=== PATIENT | male | born 1945 | race Caucasian/White ===

== ENCOUNTER 2020-11-06 10:21 | Outpatient (REF) | payer SELFPAY ==
[2020-11-06 11:28] LABS: Cholesterol 171 mg/dL
== END 2020-11-06 10:22 | disposition home or self-care (01) ==
LOC: HO.LNC 10:21
PROVIDERS: Visit Provider Pathology Anatomic Pathology & Clinical Pathology
DX: Z79.899 Other long term (current) drug therapy (principal)
CPT/HCPCS: 36415; 82465

== ENCOUNTER 2020-12-22 10:22 | Outpatient (REF) | payer MEDICARE, SELFPAY ==
[2020-12-22 11:08] LABS: MANUAL DIFF FLAG NO
[2020-12-22 11:17] LABS: Basophils Percent Auto 0.5 % (0-2); Eosinophils Absolute Auto 0.1 X10*3/uL (0.0-0.4); Eosinophils Percent Auto 1.8 % (0-4); Hematocrit 42.7 % (42-52); Hemoglobin 14.1 g/dl (14.0-18.0); Imm Gran Abs Auto 0.01 X10*3/uL (0.00-0.03); Imm Gran Pct Auto 0.2 % (0.0-0.4); Lymphocytes Absolute Auto 1.2 X10*3/uL (1.2-4.9); Lymphocytes Percent Auto 20.8 % (20-40); Mean Corpuscular Hemoglobin 31.8 pg (27.0-33.0); Mean Corpuscular Volume 96.2 fL (80-98); Mean Platelet Volume 9.2 fL (9.4-12.4); Monocytes Absolute Auto 0.6 X10*3/uL (0.1-1.2); Monocytes Percent Auto 10.8 % (2-11); Neutrophils Absolute Auto 3.7 X10*3/uL (2.0-8.3); Neutrophils Percent Auto 65.9 % (45-73); Platelet Count 172 X10*3/uL (160-400); Red Blood Count 4.44 X10*6/uL (4.60-5.80); Red Cell Distribution Width 12.2 % (11.0-16.0); White Blood Count 5.6 X10*3/uL (4.8-10.8)
[2020-12-22 11:43] LABS: Alanine Aminotransferase 22 U/L (0-40); Albumin Level 4.2 g/dL (3.5-5.0); Alkaline Phosphatase 107 U/L (39-117); Anion Gap 12 (12-20); Aspartate Amino Transferase 25 U/L (5-37); Bilirubin Total 0.8 mg/dL (0.0-1.0); Blood Urea Nitrogen 18 mg/dL (9-16); Calcium 8.4 mg/dL (8.4-10.2); Carbon Dioxide 28 mmol/L (22-29); Chloride 103 mmol/L (96-108); Cholesterol 165 mg/dL; Estimated Glomerular Filt Rate > 60; Glucose Fasting 107 mg/dL (60-99); HDL Cholesterol 39 mg/dL; LDL Cholesterol Calculated 99 mg/dl; Potassium 4.4 mmol/L (3.3-5.1); Sodium 139 mmol/L (135-145); Total Protein 7.1 g/dL (6.5-8.0); Triglycerides 135 mg/dL
[2020-12-22 11:56] LABS: Prostate Specific Antigen 1.04 ng/mL (<0.05-4.0); Vitamin D 25-OH Total 19.6 ng/mL (>30)
== END 2020-12-22 10:23 | disposition home or self-care (01) ==
LOC: HO.LAB 10:22
PROVIDERS: PCP Internal Medicine Medical Oncology; Visit Provider Internal Medicine Medical Oncology
DX: M19.90 Unspecified osteoarthritis, unspecified site (principal); E78.5 Hyperlipidemia, unspecified; N40.0 Benign prostatic hyperplasia without lower urinary tract symptoms; Z12.5 Encounter for screening for malignant neoplasm of prostate
CPT/HCPCS: 36415; 80053; 80061; 82306; 84153; 85025

== ENCOUNTER 2021-04-10 06:17 | Outpatient (REF) | payer MEDICARE, SELFPAY ==
[2021-04-10 07:53] LABS: MANUAL DIFF FLAG NO
[2021-04-10 08:08] LABS: Basophils Percent Auto 0.5 % (0-2); Eosinophils Absolute Auto 0.2 X10*3/uL (0.0-0.4); Eosinophils Percent Auto 2.8 % (0-4); Hematocrit 40.7 % (42-52); Hemoglobin 13.9 g/dl (14.0-18.0); Imm Gran Abs Auto 0.02 X10*3/uL (0.00-0.03); Imm Gran Pct Auto 0.3 % (0.0-0.4); Lymphocytes Absolute Auto 1.6 X10*3/uL (1.2-4.9); Lymphocytes Percent Auto 28.4 % (20-40); Mean Corpuscular HGB Conc 34.2 g/dl (31.0-36.0); Mean Corpuscular Hemoglobin 32.3 pg (27.0-33.0); Mean Corpuscular Volume 94.4 fL (80-98); Mean Platelet Volume 9.1 fL (9.4-12.4); Monocytes Absolute Auto 0.6 X10*3/uL (0.1-1.2); Monocytes Percent Auto 9.7 % (2-11); Neutrophils Absolute Auto 3.4 X10*3/uL (2.0-8.3); Neutrophils Percent Auto 58.3 % (45-73); Platelet Count 169 X10*3/uL (160-400); Red Blood Count 4.31 X10*6/uL (4.60-5.80); Red Cell Distribution Width 12.1 % (11.0-16.0); White Blood Count 5.8 X10*3/uL (4.8-10.8)
[2021-04-10 08:37] LABS: Alanine Aminotransferase 15 U/L (0-40); Alkaline Phosphatase 114 U/L (39-117); Anion Gap 11 (12-20); Aspartate Amino Transferase 20 U/L (5-37); Bilirubin Total 0.5 mg/dL (0.0-1.0); Blood Urea Nitrogen 17 mg/dL (9-16); Calcium 8.8 mg/dL (8.4-10.2); Carbon Dioxide 27 mmol/L (22-29); Chloride 106 mmol/L (96-108); Cholesterol 149 mg/dL; Estimated Glomerular Filt Rate > 60; Glucose Fasting 114 mg/dL (60-99); HDL Cholesterol 36 mg/dL; LDL Cholesterol Calculated 89 mg/dl; Potassium 3.7 mmol/L (3.3-5.1); Sodium 140 mmol/L (135-145); Total Protein 6.7 g/dL (6.5-8.0); Triglycerides 122 mg/dL
== END 2021-04-10 06:18 | disposition home or self-care (01) ==
LOC: HO.LAB 06:17
PROVIDERS: PCP Internal Medicine Medical Oncology; Visit Provider Internal Medicine Medical Oncology
DX: M19.90 Unspecified osteoarthritis, unspecified site (principal); N40.0 Benign prostatic hyperplasia without lower urinary tract symptoms; E78.5 Hyperlipidemia, unspecified
CPT/HCPCS: 36415; 80053; 80061; 85025

== ENCOUNTER 2021-06-06 08:19 | Outpatient (REF) | payer MEDICARE, SELFPAY ==
[2021-06-06 09:06] LABS: MANUAL DIFF FLAG NO
[2021-06-06 09:24] LABS: Basophils Percent Auto 0.7 % (0-2); Eosinophils Absolute Auto 0.2 X10*3/uL (0.0-0.4); Eosinophils Percent Auto 3.5 % (0-4); Hematocrit 39.3 % (42-52); Hemoglobin 13.1 g/dl (14.0-18.0); Imm Gran Abs Auto 0.01 X10*3/uL (0.00-0.03); Imm Gran Pct Auto 0.2 % (0.0-0.4); Lymphocytes Absolute Auto 1.3 X10*3/uL (1.2-4.9); Mean Corpuscular HGB Conc 33.3 g/dl (31.0-36.0); Mean Corpuscular Hemoglobin 31.4 pg (27.0-33.0); Mean Corpuscular Volume 94.2 fL (80-98); Mean Platelet Volume 9.1 fL (9.4-12.4); Monocytes Absolute Auto 0.5 X10*3/uL (0.1-1.2); Monocytes Percent Auto 10.4 % (2-11); Neutrophils Absolute Auto 2.4 X10*3/uL (2.0-8.3); Neutrophils Percent Auto 56.2 % (45-73); Platelet Count 192 X10*3/uL (160-400); Red Blood Count 4.17 X10*6/uL (4.60-5.80); Red Cell Distribution Width 12.3 % (11.0-16.0); White Blood Count 4.3 X10*3/uL (4.8-10.8)
[2021-06-06 09:43] LABS: Cholesterol 247 mg/dL; HDL Cholesterol 38 mg/dL; LDL Cholesterol Calculated 181 mg/dl; Triglycerides 144 mg/dL
[2021-06-06 10:04] LABS: Ferritin 43 ng/mL (20-250)
== END 2021-06-06 08:20 | disposition home or self-care (01) ==
LOC: HO.LAB 08:19
PROVIDERS: PCP Internal Medicine Medical Oncology; Visit Provider Internal Medicine Medical Oncology
DX: E78.5 Hyperlipidemia, unspecified (principal); D64.9 Anemia, unspecified
CPT/HCPCS: 36415; 80061; 82728; 85025

== ENCOUNTER 2021-09-09 07:57 | Outpatient (REF) | payer MEDICARE, SELFPAY ==
[2021-09-09 08:20] LABS: MANUAL DIFF FLAG NO
[2021-09-09 08:34] LABS: Basophils Percent Auto 0.7 % (0-2); Eosinophils Absolute Auto 0.1 X10*3/uL (0.0-0.4); Eosinophils Percent Auto 2.9 % (0-4); Hematocrit 41.1 % (42.0-52.0); Hemoglobin 13.5 g/dl (14.0-18.0); Imm Gran Abs Auto 0.01 X10*3/uL (0.00-0.03); Imm Gran Pct Auto 0.2 % (0.0-0.4); Lymphocytes Absolute Auto 1.2 X10*3/uL (1.2-4.9); Lymphocytes Percent Auto 27.9 % (20-40); Mean Corpuscular HGB Conc 32.8 g/dl (31.0-36.0); Mean Corpuscular Hemoglobin 31.8 pg (27.0-33.0); Mean Corpuscular Volume 96.7 fL (80.0-98.0); Mean Platelet Volume 8.9 fL (9.4-12.4); Monocytes Absolute Auto 0.5 X10*3/uL (0.1-1.2); Neutrophils Absolute Auto 2.3 x10*3/uL (2.0-8.3); Neutrophils Percent Auto 55.3 % (45-73); Platelet Count 187 X10*3/uL (160-400); Red Blood Count 4.25 X10*6/uL (4.60-5.80); Red Cell Distribution Width 12.9 % (11.0-16.0); White Blood Count 4.2 X10*3/uL (4.8-10.8)
[2021-09-09 09:28] LABS: Alanine Aminotransferase 25 U/L (0-40); Alkaline Phosphatase 101 U/L (39-117); Anion Gap 12 (12-20); Aspartate Amino Transferase 25 U/L (5-37); Bilirubin Total 0.6 mg/dL (0.0-1.0); Blood Urea Nitrogen 14 mg/dL (9-16); Calcium 8.8 mg/dL (8.4-10.2); Carbon Dioxide 25 mmol/L (22-29); Chloride 107 mmol/L (96-108); Cholesterol 132 mg/dL; Estimated Glomerular Filt Rate > 60; Glucose Fasting 120 mg/dL (60-99); HDL Cholesterol 40 mg/dL; LDL Cholesterol Calculated 76 mg/dl; Potassium 4.3 mmol/L (3.3-5.1); Sodium 140 mmol/L (135-145); Total Protein 6.9 g/dL (6.5-8.0); Triglycerides 81 mg/dL
== END 2021-09-09 07:58 | disposition home or self-care (01) ==
LOC: HO.LAB 07:57
PROVIDERS: Visit Provider Internal Medicine Medical Oncology
DX: N40.0 Benign prostatic hyperplasia without lower urinary tract symptoms (principal); E78.5 Hyperlipidemia, unspecified
CPT/HCPCS: 36415; 80053; 80061; 85025

== ENCOUNTER 2021-11-27 08:22 | Outpatient (REF) | payer MEDICARE, SELFPAY ==
[2021-11-27 11:28] LABS: MANUAL DIFF FLAG NO
[2021-11-27 11:32] LABS: Basophils Percent Auto 0.5 % (0-2); Eosinophils Absolute Auto 0.1 X10*3/uL (0.0-0.4); Eosinophils Percent Auto 2.5 % (0-4); Hematocrit 42.8 % (42.0-52.0); Imm Gran Abs Auto 0.01 X10*3/uL (0.00-0.03); Imm Gran Pct Auto 0.2 % (0.0-0.4); Lymphocytes Absolute Auto 1.3 X10*3/uL (1.2-4.9); Lymphocytes Percent Auto 23.8 % (20-40); Mean Corpuscular HGB Conc 32.7 g/dl (31.0-36.0); Mean Corpuscular Hemoglobin 31.3 pg (27.0-33.0); Mean Corpuscular Volume 95.7 fL (80.0-98.0); Mean Platelet Volume 9.3 fL (9.4-12.4); Monocytes Absolute Auto 0.5 X10*3/uL (0.1-1.2); Monocytes Percent Auto 9.6 % (2-11); Neutrophils Absolute Auto 3.5 x10*3/uL (2.0-8.3); Neutrophils Percent Auto 63.4 % (45-73); Platelet Count 207 X10*3/uL (160-400); Red Blood Count 4.47 X10*6/uL (4.60-5.80); Red Cell Distribution Width 12.1 % (11.0-16.0); White Blood Count 5.5 X10*3/uL (4.8-10.8)
[2021-11-27 12:04] LABS: Alanine Aminotransferase 18 U/L (0-40); Albumin Level 3.9 g/dL (3.5-5.0); Alkaline Phosphatase 98 U/L (39-117); Anion Gap 11 (12-20); Aspartate Amino Transferase 19 U/L (5-37); Bilirubin Total 0.4 mg/dL (0.0-1.0); Blood Urea Nitrogen 16 mg/dL (9-16); Calcium 9.1 mg/dL (8.4-10.2); Carbon Dioxide 29 mmol/L (22-29); Chloride 105 mmol/L (96-108); Cholesterol 155 mg/dL; Estimated Glomerular Filt Rate > 60; Glucose Fasting 115 mg/dL (60-99); HDL Cholesterol 34 mg/dL; LDL Cholesterol Calculated 93 mg/dl; Potassium 4.2 mmol/L (3.3-5.1); Sodium 141 mmol/L (135-145); Total Protein 7.1 g/dL (6.5-8.0); Triglycerides 142 mg/dL
== END 2021-11-27 08:23 | disposition home or self-care (01) ==
LOC: HO.HMGCLDS 08:22
PROVIDERS: PCP Internal Medicine Medical Oncology; Visit Provider Internal Medicine Medical Oncology
DX: N40.0 Benign prostatic hyperplasia without lower urinary tract symptoms (principal); E78.5 Hyperlipidemia, unspecified; I10 Essential (primary) hypertension; R35.1 Nocturia; Z12.5 Encounter for screening for malignant neoplasm of prostate
CPT/HCPCS: 36415; 80053; 80061; 84153; 85025

== ENCOUNTER 2022-07-09 09:39 | Outpatient (REF) | payer MEDICARE, SELFPAY ==
[2022-07-09 09:55] LABS: MANUAL DIFF FLAG NO
[2022-07-09 10:27] LABS: Basophils Percent Auto 0.8 % (0-2); Eosinophils Absolute Auto 0.1 X10*3/uL (0.0-0.4); Eosinophils Percent Auto 2.3 % (0-4); Hematocrit 39.5 % (42.0-52.0); Hemoglobin 13.4 g/dl (14.0-18.0); Imm Gran Abs Auto 0.02 X10*3/uL (0.00-0.03); Imm Gran Pct Auto 0.4 % (0.0-0.4); Lymphocytes Absolute Auto 1.5 X10*3/uL (1.2-4.9); Lymphocytes Percent Auto 30.6 % (20-40); Mean Corpuscular HGB Conc 33.9 g/dl (31.0-36.0); Mean Corpuscular Hemoglobin 32.1 pg (27.0-33.0); Mean Corpuscular Volume 94.5 fL (80.0-98.0); Mean Platelet Volume 8.8 fL (9.4-12.4); Monocytes Absolute Auto 0.5 X10*3/uL (0.1-1.2); Monocytes Percent Auto 9.6 % (2-11); Neutrophils Absolute Auto 2.7 x10*3/uL (2.0-8.3); Neutrophils Percent Auto 56.3 % (45-73); Platelet Count 179 X10*3/uL (160-400); Red Blood Count 4.18 X10*6/uL (4.60-5.80); Red Cell Distribution Width 12.6 % (11.0-16.0); White Blood Count 4.8 X10*3/uL (4.8-10.8)
[2022-07-09 10:51] LABS: Alanine Aminotransferase 17 U/L (0-40); Alkaline Phosphatase 101 U/L (39-117); Anion Gap 15 (12-20); Aspartate Amino Transferase 21 U/L (5-37); Bilirubin Total 0.6 mg/dL (0.0-1.0); Blood Urea Nitrogen 18 mg/dL (9-16); Calcium 8.9 mg/dL (8.4-10.2); Carbon Dioxide 25 mmol/L (22-29); Chloride 104 mmol/L (96-108); Cholesterol 164 mg/dL; Estimated Glomerular Filt Rate > 60; Glucose Fasting 115 mg/dL (60-99); HDL Cholesterol 35 mg/dL; LDL Cholesterol Calculated 104 mg/dl; Potassium 4.1 mmol/L (3.3-5.1); Sodium 140 mmol/L (135-145); Triglycerides 129 mg/dL
== END 2022-07-09 09:40 | disposition home or self-care (01) ==
LOC: HO.LAB 09:39
PROVIDERS: PCP Internal Medicine Medical Oncology; Visit Provider Internal Medicine Medical Oncology
DX: Z12.5 Encounter for screening for malignant neoplasm of prostate (principal); N40.0 Benign prostatic hyperplasia without lower urinary tract symptoms; E78.5 Hyperlipidemia, unspecified; C18.9 Malignant neoplasm of colon, unspecified
CPT/HCPCS: 36415; 80053; 80061; 84153; 85025

== ENCOUNTER 2023-03-11 11:17 | Outpatient (REF) | payer MEDICARE, SELFPAY ==
[2023-03-11 11:38] LABS: MANUAL DIFF FLAG NO
[2023-03-11 12:11] LABS: Basophils Percent Auto 0.5 % (0-2); Eosinophils Absolute Auto 0.1 X10*3/uL (0.0-0.4); Eosinophils Percent Auto 2.4 % (0-4); Hematocrit 41.7 % (42.0-52.0); Hemoglobin 13.8 g/dl (14.0-18.0); Imm Gran Abs Auto 0.02 X10*3/uL (0.00-0.03); Imm Gran Pct Auto 0.4 % (0.0-0.4); Lymphocytes Absolute Auto 1.5 X10*3/uL (1.2-4.9); Lymphocytes Percent Auto 26.3 % (20-40); Mean Corpuscular HGB Conc 33.1 g/dl (31.0-36.0); Mean Corpuscular Hemoglobin 31.4 pg (27.0-33.0); Mean Corpuscular Volume 94.8 fL (80.0-98.0); Monocytes Absolute Auto 0.6 X10*3/uL (0.1-1.2); Monocytes Percent Auto 11.1 % (2-11); Neutrophils Absolute Auto 3.3 x10*3/uL (2.0-8.3); Neutrophils Percent Auto 59.3 % (45-73); Platelet Count 180 X10*3/uL (160-400); Red Cell Distribution Width 12.5 % (11.0-16.0); White Blood Count 5.5 X10*3/uL (4.8-10.8)
[2023-03-11 12:58] LABS: Alanine Aminotransferase 17 U/L (0-40); Albumin Level 4.1 g/dL (3.5-5.0); Alkaline Phosphatase 94 U/L (39-117); Anion Gap 11 (12-20); Aspartate Amino Transferase 22 U/L (5-37); Bilirubin Total 0.6 mg/dL (0.0-1.0); Blood Urea Nitrogen 24 mg/dL (9-16); Calcium 9.1 mg/dL (8.4-10.2); Carbon Dioxide 28 mmol/L (22-29); Chloride 105 mmol/L (96-108); Cholesterol 183 mg/dL; Estimated Glomerular Filt Rate > 60; Glucose Random 92 mg/dL (60-115); HDL Cholesterol 40 mg/dL; LDL Cholesterol Calculated 120 mg/dl; Potassium 4.5 mmol/L (3.3-5.1); Prostate Specific Antigen 0.91 ng/mL (<0.05-4.0); Sodium 139 mmol/L (135-145); Total Protein 7.1 g/dL (6.5-8.0); Triglycerides 119 mg/dL
== END 2023-03-11 11:18 | disposition home or self-care (01) ==
LOC: HO.LAB 11:17
PROVIDERS: PCP Internal Medicine Medical Oncology; Visit Provider Internal Medicine Medical Oncology
DX: Z12.5 Encounter for screening for malignant neoplasm of prostate (principal); N40.0 Benign prostatic hyperplasia without lower urinary tract symptoms; E78.5 Hyperlipidemia, unspecified; I10 Essential (primary) hypertension
CPT/HCPCS: 36415; 80053; 80061; 84153; 85025

== ENCOUNTER 2023-03-11 14:17 | Outpatient (REF) | payer MEDICARE, SELFPAY | END 2023-03-11 14:18 | disposition home or self-care (01) | LOC: HO.SH 14:17 | PROVIDERS: Visit Provider Internal Medicine Medical Oncology | DX: Z01.118 Encounter for examination of ears and hearing with other abnormal findings (principal); H90.3 Sensorineural hearing loss, bilateral | CPT/HCPCS: 92557 ==

== ENCOUNTER 2023-04-22 13:51 | Outpatient (REF) | payer MEDICARE, SELFPAY ==
--- NOTE | ~2023-04-22 | US_ITS ---
EXAMINATION: NONINVASIVE ASSESSMENT OF THE ARTERIES OF THE LEFT LOWER EXTREMITY Jamie Dangelo MD CLINICAL INFORMATION: Peripheral vascular disease TECHNIQUE: Right lower extremity duplex ultrasound was performed with velocity measurements and waveform analysis in the common femoral arteries, profunda femoris arteries, proximal mid and distal superficial femoral arteries, popliteal arteries and tibial vessels. This study was performed only at rest. COMPARISON: None FINDINGS: Velocities in cm/sec and phasicity as well as the presence of plaque are reported below. LEFT LEG: Mild plaque is present with total occlusion of the SFA with reconstitution of a diseased popliteal artery. Triphasic flow noted in the common femoral artery and profunda femoris artery with monophasic flow noted in the SFA as well as the distally reconstituted popliteal and runoff vessels. Common Femoral: 87 Profunda Femoris: 96 Proximal SFA: 29 Mid SFA: Occluded Distal SFA: Occluded Popliteal: 211 Posterior tibial artery: 44 Peroneal: 26 US/US arterial duplex LE LT IMPRESSION: There is evidence of peripheral vascular disease with total occlusion of the SFA with reconstitution of the popliteal and runoff vessels.
== END 2023-04-22 13:52 | disposition home or self-care (01) ==
LOC: HO.US 13:51
PROVIDERS: PCP Internal Medicine Medical Oncology; Referring Provider Surgery Vascular Surgery; Visit Provider Internal Medicine Medical Oncology
DX: I73.9 Peripheral vascular disease, unspecified (principal)
CPT/HCPCS: 93926

== ENCOUNTER 2023-04-22 14:59 | Emergency (ER) | payer MEDICARE, SELFPAY ==
--- NOTE | 2023-04-22 15:06 | ED_ITS ---
HPI - General Adult General Chief complaint: General Medical Stated complaint: acute arterial aclusion l leg Time Seen by Provider: 04/22/23 15:14 Source: patient Mode of arrival: ambulatory Limitations: no limitations History of Present Illness HPI narrative: This is an 78-year-old male with a history of high cholesterol on a statin who presents to the ER with complaints of left-sided calf pain for the last 1 year which he experiences when he walks around and performs exercise. There is no associated redness, swelling, warmth, numbness or tingling of the extremity. He saw his primary care doctor and had an outpatient arterial ultrasound ordered. He is brought over to our ER with concern for an abnormal ultrasound and for further evaluation Related Data Previous Rx's Medication Instructions Recorded aspirin 81 mg tablet,delayed 81 mg PO DAILY #30 tabs 04/22/23 release (Adult Low Dose Aspirin) clopidogrel 75 mg tablet (Plavix) 75 mg PO DAILY #30 tabs 04/22/23 Allergies Allergy/AdvReac Type Severity Reaction Status Date / Time No Known Allergies Allergy Unknown Unverified 11/27/21 08:50 Review of Systems Review of Systems: Yes all other systems are reviewed and are negative Constitutional: Constitutional: Reports no additional constitutional complaints, Denies body ache(s), Denies chills, Denies fever(s), Denies headache(s) and Denies weakness Eyes: Eyes: Reports no additional eye complaints and Denies change in vision ENT: Reports system reviewed and no additional complaints, except as documented, Denies dizziness, Denies headache(s), Denies nasal congestion, Denies nasal discharge and Denies neck pain Cardiovascular: Cardiovascular: Reports no additional cardiovascular complaints, Denies chest pain, Denies leg edema and Denies dyspnea Respiratory: Respiratory: Reports no additional respiratory complaints, Denies cough and Denies dyspnea Gastrointestinal: Gastrointestinal: Reports no additional gastrointestinal complaints, Denies abdominal pain, Denies diarrhea, Denies nausea and Denies vomiting Genitourinary: Genitourinary: Denies urinary incontinence Musculoskeletal: Musculoskeletal: Reports no additional musculoskeletal complaints, Denies back pain, Denies arthralgias, Denies joint swelling, Denies neck pain, Denies numbness and Denies tingling Integumentary/Breasts: Skin/Breast: Reports system reviewed and no additional complaints, except as docu and Denies rash Neurologic: Reports system reviewed and no additional complaints, except as documented, Denies dizziness, Denies headache(s), Denies numbness, Denies tingling and Denies weakness [facility] Past Medical History Attestation statement: The following information was validated with the patient. Source: old records reviewed and nursing notes reviewed Social History Social History Alcohol intake: never Smoked in Last 30 Days: No Use of substances other than those prescribed or required for medical reasons: No Advance Directives: No Advance Directives Information Provided: No Physical Exam ED Vital Signs: Vital Signs - 24 hr 04/22/23 15:08 04/22/23 15:44 Temperature 97.4 F 97.6 F Pulse Rate 62 57 Respiratory Rate 18 16 Blood Pressure 160/78 H 156/68 H Pulse Oximetry 96 99 Oxygen Delivery Method Room Air Room Air BMI result Body Mass Index 22.5 Const General: cooperative, healthy appearing, comfortable and no acute distress Orientation/consciousness: patient oriented x3 Limitations: no limitations HENMT Head: Yes normal to inspection Ears: hearing grossly normal bilaterally Eyes General: appearance normal, both eyes and all related structures Pupils: Equal, round and reactive pupils present Neck Neck: Yes normal visual inspection and Yes full ROM Chest Chest palpation & inspection: normal inspection of the chest Resp Effort & Inspection: normal respiratory effort Auscultation: clear to auscultation bilaterally Cardio Rate: regular rate Rhythm: regular rhythm GI Inspection: Yes normal to inspection Skin General skin exam: no rashes or lesions noted Neuro General: patient oriented x3 and moves all extremities Cranial nerves: Yes Equal, round and reactive pupils present Extrem Other: The left lower extremity is normal in appearance. There is no erythema or swelling noted. The foot is warm. There is full range of motion of the left foot and ankle. There is no palpable tenderness to touch. There is a Doppler dorsalis pedis pulse on the left side. Unable to get a posterior tibial pulse. Sensation is intact. Course Course Course Narrative: RME: 78-year-old male with medical history HLD Sent in from ultrasound for ac nikolai arterial clot to LLE, received call from ultrasound, report being sent to radiologist and Dr. Aguilera. Pt reports LLE pain worse w/exertion no palpable pulse to LLE, no mottling. warm to touch Labs ordered Full HPI, ROS and PE to be performed by primary ED provider. Medications Administered Discontinued Medications Generic Name Dose Route Start Last Admin Trade Name Armando PRN Reason Stop Dose Admin Clopidogrel Bisulfate 300 mg 04/22/23 15:30 04/22/23 15:58 Clopidogrel Bisulfate 300 Mg Tablet PO 04/22/23 15:31 300 mg ONCE ONE Administration Medical Decision Making Medical Decision Making [facility] Narrative: This is an 78-year-old male who was history of high cholesterol who has had intermittent left calf pain with activity for the last 1 year who has had an outpatient arterial ultrasound concerning for occlusion. On exam the left lower extremity is normal in appearance. Full range of motion. Sensation normal. No swelling or erythema. Doppler DP pulse. Unable to obtain PT pulse. Reviewed ultrasound which shows evidence of peripheral vascular disease with total occlusion of the SFA with reconstitution of the popliteal and runoff vessels. ? Acuity of occlusion. I discussed the case with vascular surgery Dr. Aguilera. Patient does not need admission. Dr Aguilera will see patient in office on Thursday. Did recommend dual platelet agents with loading dose of 300mg plavix tonight. Will send patient home on aspirin and Plavix. Did review worrisome signs and symptoms with the patient such as cold pale foot, sensation change, pain with range of motion of the foot or ankle on the affected side and when to return to the emergency room. 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 04/22/23 15:38 04/22/23 15:38 Labs: Lab Results 04/22/23 04/22/23 Range/Units 15:38 15:38 WBC 5.0 (4.8-10.8) X10*3/uL RBC 4.30 L (4.60-5.80) X10*6/uL Hgb 13.5 L (14.0-18.0) g/dl Hct 40.7 L (42.0-52.0) % MCV 94.7 (80.0-98.0) fL MCH 31.4 (27.0-33.0) pg MCHC 33.2 (31.0-36.0) g/dl RDW 12.5 (11.0-16.0) % Plt Count 166 (160-400) X10*3/uL MPV 8.8 L (9.4-12.4) fL Immature Gran % (Auto) 0.2 (0.0-0.4) % Neut % (Auto) 57.5 (45-73) % Lymph % (Auto) 27.6 (20-40) % [place] % (Auto) 11.1 H (2-11) % Eos % (Auto) 3.0 (0-4) % Baso % (Auto) 0.6 (0-2) % Lymph # (Auto) 1.4 (1.2-4.9) X10*3/uL [place] # (Auto) 0.6 (0.1-1.2) X10*3/uL Eos # (Auto) 0.2 (0.0-0.4) X10*3/uL Baso # (Auto) 0.0 (0.0-0.2) X10*3/uL Abs Immat Gran (auto) 0.01 (0.00-0.03) X10*3/uL Absolute Neuts (auto) 2.9 (2.0-8.3) x10*3/uL Absolute Nucleated RBC 0.000 (0.0-0.012) X10*3/uL Nucleated RBC % (auto) 0.0 (0.0-0.2) /100WBC Sodium 139 (135-145) mmol/L Potassium 4.0 (3.3-5.1) mmol/L Chloride 103 (96-108) mmol/L Carbon Dioxide 27 (22-29) mmol/L Anion Gap 13 (12-20) BUN 19 H (9-16) mg/dL Creatinine 0.94 (0.5-1.4) mg/dL Estim Creat Clear Calc 72.3 Estimated GFR > 60 Random Glucose 107 (60-115) mg/dL Calcium 9.7 D (8.4-10.2) mg/dL Total Bilirubin 0.7 (0.0-1.0) mg/dL Direct Bilirubin 0.2 (0.0-0.5) mg/dL AST 22 (5-37) U/L ALT 18 (0-40) U/L Alkaline Phosphatase 95 (39-117) U/L Total Protein 7.6 (6.5-8.0) g/dL Albumin 4.0 (3.5-5.0) g/dL Independent Interpretation I performed an independent interpretation of an: Ultrasound Interpretation: I independently reviewed the ultrasound and agree with radiologist's report Radiology Impression Discussion of test interpretation with radiology: I have reviewed the radiologist's reading. Radiologist Impression: IMPRESSION: 1.? No acute fracture or malalignment at the right hip. ? 2. [id number]-wj-nhlgrw osteoarthritis in the right hip. ? 3. Marked fatty atrophy of the gluteus minimus and anterior aspect of the gluteus medius, most consistent with chronic tendon tears. Associated trochanteric bursitis is suspected. ? External Record Review External record reviewed: Prior outpatient radiology US Discharge Plan Discharge Clinical Impression: Peripheral arterial disease Patient Disposition: Home, Self-Care Instructions: Peripheral Artery Disease (ED) Additional Instructions: You do have a clot in your left leg in the artery. This has likely been there for some time. We are starting you on dual platelet agent. Take the Plavix daily. Start a baby aspirin (81mg daily) tomorrow and take one baby aspirin daily We did speak to the vascular surgeon and they will see you on Thursday for an appointment. Please call tomorrow to make this appointment Please look at your foot daily and return if it is pale and collar, cool to touch, numb or tingly, or you have difficulty moving the foot or ankle Prescriptions: New clopidogrel [Plavix] 75 mg tablet 75 mg PO DAILY Qty: 30 0RF aspirin [Adult Low Dose Aspirin] 81 mg tablet,delayed release (DR/EC) 81 mg PO DAILY Qty: 30 0RF Referrals: Deshawn Ibrahim MD [Primary Care Provider] - 1 Week Young Aguilera MD [Physician] - 3 days
[2023-04-22 15:08] VITALS: BP 160/78; PULSE 62; RESP 18; TEMP 36.3; O2SAT 96; BMI 22.5
[2023-04-22 15:44] VITALS: BP 156/68; PULSE 57; RESP 16; TEMP 36.4; O2SAT 99
[2023-04-22 15:45] LABS: MANUAL DIFF FLAG NO
[2023-04-22 15:52] LABS: Basophils Percent Auto 0.6 % (0-2); Eosinophils Absolute Auto 0.2 X10*3/uL (0.0-0.4); Hematocrit 40.7 % (42.0-52.0); Hemoglobin 13.5 g/dl (14.0-18.0); Imm Gran Abs Auto 0.01 X10*3/uL (0.00-0.03); Imm Gran Pct Auto 0.2 % (0.0-0.4); Lymphocytes Absolute Auto 1.4 X10*3/uL (1.2-4.9); Lymphocytes Percent Auto 27.6 % (20-40); Mean Corpuscular HGB Conc 33.2 g/dl (31.0-36.0); Mean Corpuscular Hemoglobin 31.4 pg (27.0-33.0); Mean Corpuscular Volume 94.7 fL (80.0-98.0); Mean Platelet Volume 8.8 fL (9.4-12.4); Monocytes Absolute Auto 0.6 X10*3/uL (0.1-1.2); Monocytes Percent Auto 11.1 % (2-11); Neutrophils Absolute Auto 2.9 x10*3/uL (2.0-8.3); Neutrophils Percent Auto 57.5 % (45-73); Platelet Count 166 X10*3/uL (160-400); Red Cell Distribution Width 12.5 % (11.0-16.0)
[2023-04-22] MEDS: Clopidogrel Bisulfate 300 MG TABLET PO (15:58)
--- NOTE | 2023-04-22 16:00 | PC.NURSE ---
Patient presents for clot in his leg, scan shows that the clot has been present for a while. Patient will be seeing vascular surgery on Thursday and knows he has to call and make the appointment. Patient started on loading dose of plavix tonight per DEC. Patient alert and oriented, walking with a slight limp favoring affected leg, otherwise well appearing.
[2023-04-22 16:05] LABS: Alanine Aminotransferase 18 U/L (0-40); Alkaline Phosphatase 95 U/L (39-117); Anion Gap 13 (12-20); Aspartate Amino Transferase 22 U/L (5-37); Bilirubin Direct 0.2 mg/dL (0.0-0.5); Bilirubin Total 0.7 mg/dL (0.0-1.0); Blood Urea Nitrogen 19 mg/dL (9-16); Calcium 9.7 mg/dL (8.4-10.2); Carbon Dioxide 27 mmol/L (22-29); Chloride 103 mmol/L (96-108); Creatinine Clr Calc Pharmacy 72.3; Estimated Glomerular Filt Rate > 60; Glucose Random 107 mg/dL (60-115); Sodium 139 mmol/L (135-145); Total Protein 7.6 g/dL (6.5-8.0)
[2023-04-22 16:10] LABS: B Type Natriuretic Peptide 78 pg/mL (<100)
[2023-04-22 16:10] LABS: COVID-19 Test Negative (Negative); IDNOW Serial# BCCEAD1C
[2023-04-22 16:14] LABS: Prothrombin Time 11.8 SEC (10.0-13.1)
[2023-04-22 16:17] LABS: Partial Thromboplastin Time 32.9 SEC (26.0-36.4)
== END 2023-04-22 16:27 | disposition home or self-care (01) ==
PROVIDERS: Physician Assistant; Emergency Provider Emergency Medicine; PCP Internal Medicine Medical Oncology
DX: I73.9 Peripheral vascular disease, unspecified (principal); M79.662 Pain in left lower leg; E78.5 Hyperlipidemia, unspecified; Z79.02 Long term (current) use of antithrombotics/antiplatelets
CPT/HCPCS: 36415; 80048; 80076; 83880; 85025; 85610; 85730; 87635; 99283; 99284

== ENCOUNTER → 2023-04-27 09:13 | Outpatient (BNVA) | payer MEDICARE, SELFPAY | PROVIDERS: PCP Internal Medicine Medical Oncology; Visit Provider Surgery Vascular Surgery | DX: I73.9 Peripheral vascular disease, unspecified (principal) | CPT/HCPCS: 99202 ==

== ENCOUNTER 2023-04-29 07:16 | Day surgery (SDC) | payer MEDICARE, SELFPAY ==
[2023-04-29] VITALS (11 sets, daily range): BP systolic 124–140; BP diastolic 50–72; PULSE 48–59; RESP 16–21; TEMP 36.3–36.4; O2SAT 95–99; BMI 22.6
[2023-04-29 07:58] LABS: MANUAL DIFF FLAG NO
[2023-04-29 08:03] LABS: Basophils Percent Auto 0.9 % (0-2); Eosinophils Absolute Auto 0.1 X10*3/uL (0.0-0.4); Eosinophils Percent Auto 3.2 % (0-4); Hematocrit 38.5 % (42.0-52.0); Hemoglobin 12.6 g/dl (14.0-18.0); Imm Gran Abs Auto 0.01 X10*3/uL (0.00-0.03); Imm Gran Pct Auto 0.2 % (0.0-0.4); Lymphocytes Absolute Auto 1.2 X10*3/uL (1.2-4.9); Lymphocytes Percent Auto 27.2 % (20-40); Mean Corpuscular HGB Conc 32.7 g/dl (31.0-36.0); Mean Corpuscular Volume 94.6 fL (80.0-98.0); Mean Platelet Volume 8.9 fL (9.4-12.4); Monocytes Absolute Auto 0.5 X10*3/uL (0.1-1.2); Monocytes Percent Auto 11.4 % (2-11); Neutrophils Absolute Auto 2.5 x10*3/uL (2.0-8.3); Neutrophils Percent Auto 57.1 % (45-73); Platelet Count 153 X10*3/uL (160-400); Red Blood Count 4.07 X10*6/uL (4.60-5.80); Red Cell Distribution Width 12.4 % (11.0-16.0); White Blood Count 4.4 X10*3/uL (4.8-10.8)
[2023-04-29 08:15] LABS: Blood Urea Nitrogen 25 mg/dL (9-16); Creatinine Clr Calc Pharmacy 75.8; Estimated Glomerular Filt Rate > 60
--- NOTE | 2023-04-29 10:49 | W.PM.OPN ---
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 Ultrasound-guided right common femoral access 2. Aortogram with bilateral lower extremity runoff Surgeon:Young Aguilera M.D., FACS, RPVI [employer] Driver:None Anesthesia: Local with moderate conscious sedation. Total intraservice moderate sedation time was 35 minutes. I monitored the patient's level of consciousness and physiologic status continuously throughout the procedure. Specimens:none Drains:none Estimated blood loss: Less than 10 ml Implant: None Indications: Pleasant 78-year-old gentleman who had activity limiting claudication which was identified by his primary care doctor. He subsequently underwent arterial ultrasound which demonstrated SFA occlusion. He now presents for endovascular intervention. The patient has signed the informed consent after reviewing risks, complications, benefits, and alternatives previously discussed with the patient. The patient was given the opportunity to ask any additional questions or voice any concerns. All questions were answered to the patient's satisfaction. Procedure in detail: Patient was brought to the angiography suite prior to which a time-out was called for patient identification and site verification. Bilateral groins were prepped and draped in the standard surgical fashion. Under ultrasound guidance right common femoral was punctured with micro puncture needle and wire. Subsequently a precision 4 Guamanian sheath was then placed. Bentson wire was advanced to the level of the aorta. 4 [place]ian Flush catheter was brought up and parked at the level of the renal arteries. Aortogram was then undertaken. Catheter was brought down to the level of the iliac bifurcation. Iliacs were subsequently imaged. Catheter was then brought in up and over to the left side profundus. Runoff study was then undertaken. No intervention was possible we pulled out the catheter. Through this sheath right lower extremity runoff was then undertaken. At this time sheath was then removed. 10 minutes of direct pressure was held. Patient tolerated the procedure well. Returned to recovery with stable vitals. Interpretation of films: 1. Ultrasound demonstrates appropriate femoral puncture. Image of which was saved. Posterior calcification at puncture site 2. Aortogram demonstrates appropriate caliber aorta. Minimal disease. Appropriate take-off of the renals. 3. Iliac images demonstrate no significant disease 4. Left Leg Common femoral artery: Mild disease Profundus Femoris: No significant disease Superficial femoral artery: Total occlusion Popliteal artery (p1,p2,p3): Reconstitutes at the P3 segment which did have calcific disease throughout Anterior tibial artery: Patent to ankle Peroneal artery: Present but diminutive Posterior tibial artery: Occluded Dorsalis pedis/plantar arch: Incomplete 4. Right Leg Common femoral artery: No significant disease Profundus Femoris: No significant disease Superficial femoral artery: Moderate calcific disease at Brent's canal Popliteal artery (p1,p2,p3): Patent Anterior tibial artery: Patent to ankle Peroneal artery: Present but diminutive Posterior tibial artery: Diminutive Dorsalis pedis/plantar arch: Incomplete Conclusion: 1. Successful diagnostic angiogram. Would require left fem to below-knee popliteal bypass. Right side appears to be amenable to endovascular intervention. 2. Anticoagulation status: No change This note is constructed using voice recognition software. While every effort has been made to ensure accuracy, tender coordinator errors may have been included. Thank you for allowing me to participate in the care of your patient. Yours sincerely, Young Aguilera MD, FACS, R.P.V.I.
== END 2023-04-29 15:15 | disposition home or self-care (01) ==
PROVIDERS: PCP Internal Medicine Medical Oncology; Visit Provider Surgery Vascular Surgery
DX: I70.212 Atherosclerosis of native arteries of extremities with intermittent claudication, left leg (principal); I10 Essential (primary) hypertension; E78.5 Hyperlipidemia, unspecified; Z87.891 Personal history of nicotine dependence; H91.90 Unspecified hearing loss, unspecified ear; Z85.038 Personal history of other malignant neoplasm of large intestine
CPT/HCPCS: 36247; 36415; 75630; 76937; 82565; 84520; 85025; 99152; 99153; C1769; C1887; J1643; J2250; J3010; Q9967

== ENCOUNTER 2023-05-14 09:06 | Outpatient (AMB) | payer MEDICARE, SELFPAY ==
[2023-05-14 09:08] VITALS: BMI 22.5
--- NOTE | 2023-05-14 09:08 | A.OFFVIS_ITS ---
Intake Vital Signs 05/14/23 09:08 Height 6 ft 3 in Weight 180 lb BMI 22.5 Intake Visit Reasons: 2 wk post left leg angio 04/29/23 Intake Note: Left LE angio 04/29/23 was diagnostic, pt states he needs surgery and also states he is now having issues on the right LE. Accompanied by: Self / Same As Patient Allergies No Known Allergies Allergy (Unknown, Verified 05/14/23 09:13) HPI 2 wk post left leg angio 04/29/23 HPI Details Very pleasant 78-year-old gentleman presents for follow-up status post diagnostic angiogram. During the angiogram was noted that he had a total left SFA occlusion which was not amenable to endovascular intervention. He now presents for follow-up. Upon discussion with him he is able to walk about 5-7 minutes on the treadmill at a reasonable pace in addition he is able to walk about 2 blocks. He now presents for routine postprocedure follow-up. [facility] Medical History (Updated 05/15/23 @ 10:05 by Young Aguilera MD) Peripheral arterial disease S/P angiogram of extremity (04/29/23) Social History Alcohol intake: never Patient Tobacco Use Status: Former Tobacco user Review of Systems Const All systems reviewed & are unremarkable except as noted in HPI and below Reports no additional complaints ENT Reports Normal hearing present Card Denies chest pain, Denies chest pain at rest, Denies chest pain with activity and Denies pedal edema Resp Denies cough GI Denies abdominal pain Musc Denies abnormal gait, Denies muscle cramps and Denies radiating pain into limb Skin/Breast Denies skin ulcer and Denies wounds Neuro Reports Normal hearing present and Denies abnormal gait Psych Reports no additional complaints Physical Exam Vital Signs: BMI result Body Mass Index 22.5 Const General: cooperative, healthy appearing and comfortable Orientation/consciousness: oriented to person, oriented to place and oriented to time HEENT Head: Yes normal to inspection Neck Neck: Yes normal visual inspection Carotids: no bruits Chest Chest palpation & inspection: normal inspection of the chest Resp Effort & Inspection: normal respiratory effort and able to speak in complete sentences Auscultation: clear to auscultation bilaterally, no crackles, no rales, no rhonchi and no wheezes Cardio Other: Bilateral DP signal Rate: regular rate Rhythm: regular rhythm Heart sounds: S1 normal heart sound present and S2 normal heart sound present Bruits: no carotid bruits GI Inspection: Yes normal to inspection Skin Wounds: no wounds Hair: normal Neuro General: oriented to person, oriented to place and oriented to time Cranial nerves: Yes CN's II-XII intact bilaterally and Yes Normal hearing present Cognition (Neuro): normal cognition Motor exam (neuro): 5/5 motor strength present throughout Extrem Other: venous exam: No significant superficial varicosities or spider telangiectasias, minimal edema General: No clubbing, No cyanosis and No edema Psych Appearance: grossly normal Mental Status: mental status grossly normal Speech and movement: Normal speech and movement present Assessment & Plan Assessment & Plan (1) Peripheral arterial disease: Code(s): I73.9 - Peripheral vascular disease, unspecified Plan: In short patient is a claudicant it appears that it is stable. I did discuss the findings with the patient in we are in agreement that it is not severely activity limiting clotted K parra. Would recommend conservative measures including exercise and ambulation. In addition we will discontinue his Plavix and he can remain on aspirin only. He will follow up with us in approximately 3 months time with surveillance follow-up. Thank you for allowing us to assist in his care. If there are any questions or concerns please do not hesitate to contact us. Orders: Orders US arterial duplex LE BI 3 Months I73.9 - Peripheral vascular disease, unspecified Coding Level of Care Code Est Pt Level 4 (06604) Diagnoses Peripheral arterial disease I73.9
== END 2023-05-14 09:35 | disposition home or self-care (01) ==
LOC: HO.HVS 09:06
PROVIDERS: PCP Internal Medicine Medical Oncology; Visit Provider Surgery Vascular Surgery
DX: I73.9 Peripheral vascular disease, unspecified (principal)
CPT/HCPCS: 99213

== ENCOUNTER → 2023-05-14 09:06 | Outpatient (BNVA) | payer MEDICARE, SELFPAY | PROVIDERS: PCP Internal Medicine Medical Oncology; Visit Provider Surgery Vascular Surgery ==

== ENCOUNTER 2023-10-05 09:33 | Outpatient (REF) | payer MEDICARE, SELFPAY ==
[2023-10-05 09:51] LABS: MANUAL DIFF FLAG NO
[2023-10-05 10:33] LABS: Basophils Percent Auto 0.6 % (0-2); Eosinophils Absolute Auto 0.1 X10*3/uL (0.0-0.4); Eosinophils Percent Auto 2.5 % (0-4); Hematocrit 44.5 % (42.0-52.0); Hemoglobin 14.4 g/dl (14.0-18.0); Imm Gran Abs Auto 0.02 X10*3/uL (0.00-0.03); Imm Gran Pct Auto 0.4 % (0.0-0.4); Lymphocytes Absolute Auto 1.2 X10*3/uL (1.2-4.9); Lymphocytes Percent Auto 22.9 % (20-40); Mean Corpuscular HGB Conc 32.4 g/dl (31.0-36.0); Mean Corpuscular Hemoglobin 30.4 pg (27.0-33.0); Mean Corpuscular Volume 94.1 fL (80.0-98.0); Mean Platelet Volume 8.9 fL (9.4-12.4); Monocytes Absolute Auto 0.5 X10*3/uL (0.1-1.2); Neutrophils Absolute Auto 3.3 x10*3/uL (2.0-8.3); Neutrophils Percent Auto 63.6 % (45-73); Platelet Count 167 X10*3/uL (160-400); Red Blood Count 4.73 X10*6/uL (4.60-5.80); Red Cell Distribution Width 12.9 % (11.0-16.0); White Blood Count 5.2 X10*3/uL (4.8-10.8)
[2023-10-05 10:59] LABS: Alanine Aminotransferase 20 U/L (0-40); Albumin Level 4.1 g/dL (3.5-5.0); Alkaline Phosphatase 86 U/L (39-117); Anion Gap 11 (12-20); Aspartate Amino Transferase 19 U/L (5-37); Bilirubin Total 0.5 mg/dL (0.0-1.0); Blood Urea Nitrogen 19 mg/dL (9-16); Calcium 9.6 mg/dL (8.4-10.2); Carbon Dioxide 28 mmol/L (22-29); Chloride 106 mmol/L (96-108); Cholesterol 198 mg/dL (<200); Estimated Glomerular Filt Rate > 60; Glucose Fasting 116 mg/dL (60-99); HDL Cholesterol 42 mg/dL (>40); LDL Cholesterol Calculated 124 mg/dL (<100); Potassium 4.7 mmol/L (3.3-5.1); Sodium 140 mmol/L (135-145); Total Protein 7.8 g/dL (6.5-8.0); Triglycerides 160 mg/dL (<150)
[2023-10-05 11:16] LABS: Prostate Specific Antigen 1.02 ng/mL (<0.05-4.0)
== END 2023-10-05 09:34 | disposition home or self-care (01) ==
LOC: HO.LAB 09:33
PROVIDERS: PCP Internal Medicine Medical Oncology; Visit Provider Internal Medicine Medical Oncology
DX: Z00.00 Encounter for general adult medical examination without abnormal findings (principal); E78.5 Hyperlipidemia, unspecified; N40.0 Benign prostatic hyperplasia without lower urinary tract symptoms; Z12.5 Encounter for screening for malignant neoplasm of prostate
CPT/HCPCS: 36415; 80053; 80061; 84153; 85025

== ENCOUNTER 2023-11-16 09:43 | Emergency (ER) | payer MEDICARE, SELFPAY ==
--- NOTE | ~2023-11-16 | US_ITS ---
ULTRASOUND UPPER EXTREMITY ARTERIAL, LEFT CLINICAL INDICATION: Fall and history of clot COMPARISON: None TECHNIQUE: Real-time duplex on the examination of the left upper extremity arterial system was performed bilaterally . FINDINGS: LEFT: Left upper extremity peak systolic velocities (cm/s) and waveforms: Proximal subclavian artery: 147 biphasic Mid subclavian artery: 70 biphasic Distal subclavian artery: 96 triphasic Axillary artery: 98 triphasic Proximal brachial artery: 154 triphasic Mid brachial artery: 136 triphasic Distal brachial artery: 114 triphasic Mid radial artery: 122 biphasic Mid ulnar artery: 69 triphasic US/US arterial duplex UE LT IMPRESSION: 1. Patency of the visualized vasculature. 2. A few regions of hemodynamic alterations in vascular flow are noted.
--- NOTE | ~2023-11-16 | US_ITS ---
EXAMINATION: US VENOUS WITH DOPPLER UPPER EXTREMITY, LEFT CLINICAL INFORMATION: Swelling, history of thrombus Edema/swelling COMPARISON: None available. TECHNIQUE: Ultrasound of the upper extremity is performed using compression sonography and color and pulse Doppler flow with assessment of augmentation of flow. There is also imaging and Doppler assessment of the jugular and subclavian veins. Spectral analysis with color-flow imaging is performed. FINDINGS: Respiratory variation, normal compression are noted throughout the upper extremity including the brachial, cephalic and radial and ulnar veins. There is normal flow in the internal jugular, subclavian veins and axillary veins. There is no visible deep or superficial thrombophlebitis. US/US venous duplex UE LT IMPRESSION: No DVT demonstrated in the left upper extremity
--- NOTE | ~2023-11-16 | XR_ITS ---
EXAMINATION: XR HAND, LEFT CLINICAL INFORMATION: Hand pain and swelling COMPARISON: None available. TECHNIQUE: PA, lateral, and oblique views of the left hand. FINDINGS: Decreased bone normal density which decreases sensitivity for fracture evaluation. No acute visible fracture or dislocation. Multi joint arthritic changes greatest at the first carpometacarpal joint. Joint spaces and alignment are otherwise maintained. Soft tissues are unremarkable. XR/XR hand LT min 3V IMPRESSION: 1. Decreased bone normal density which decreases sensitivity for fracture evaluation. 2. No acute visible fracture or dislocation. 3. Multi joint arthritic changes greatest at the first carpometacarpal joint.
[2023-11-16 09:48] VITALS: BP 147/90; PULSE 81; RESP 18; TEMP 35.9; O2SAT 94; BMI 25.0
--- NOTE | 2023-11-16 10:24 | ED.GENADULT ---
HPI - General Adult General Chief complaint: Extremity Problem Stated complaint: l thumb pain Time Seen by Provider: 11/16/23 10:24 Source: patient and family () Mode of arrival: ambulatory Limitations: no limitations History of Present Illness HPI narrative: 78 year-old assigned at male with a history of PAD presents to emergency department with left thumb swelling and pain. He states the swelling started on Thursday11/13/2023 and has been worsening over time. He reports he woke up with the swelling and had no recent falls or accidents. He states that ice has helped alleviate the swelling. He has taken Tylenol for his discomfort. He reports that he does not smoke. Patient denies fever, malaise, weight loss, night sweats, chills, vision changes, loss of vision, double vision, chest pain, palpitations, shortness of breath, difficulty breathing, abdominal pain, nausea, vomiting, changes in bowel movements, melena and hematochezia, changes in urination, lightheadedness, and dizziness. Onset (ago): day(s) (2) Location: left and upper extremity Radiation: non-radiation Severity: mild Severity scale (1-10): 3 Relieving factors: none Exacerbating factors: none Associated symptoms: denies other symptoms Treatments prior to arrival: cold therapy and other (tylenol) Related Data Home Medications Medication Instructions Recorded Confirmed atorvastatin 10 mg tablet 10 mg PO DAILY 04/27/23 Previous Rx's Medication Instructions Recorded aspirin 81 mg tablet,delayed 81 mg PO DAILY #30 tabs 04/22/23 release (Adult Low Dose Aspirin) clopidogrel 75 mg tablet (Plavix) 75 mg PO DAILY #30 tabs 04/22/23 Allergies Allergy/AdvReac Type Severity Reaction Status Date / Time No Known Allergies Allergy Unknown Verified 11/16/23 09:53 Review of Systems Constitutional: Constitutional: Reports no additional constitutional complaints, Denies chills, Denies fever(s) and Denies night sweats Eyes: Eyes: Reports no additional eye complaints, Denies blurry vision, Denies change in vision, Denies diplopia, Denies eye discharge, Denies loss of vision and Denies eye pain ENT: Denies dizziness Cardiovascular: Cardiovascular: Reports no additional cardiovascular complaints, Denies chest pain, Denies lightheadedness, Denies Loss of Consciousness and Denies dyspnea Respiratory: Respiratory: Reports no additional respiratory complaints and Denies dyspnea Gastrointestinal: Gastrointestinal: Reports no additional gastrointestinal complaints, Denies abdominal pain, Denies melena, Denies hematochezia, Denies change in bowel habits and Denies change in stool character Genitourinary: Genitourinary: Reports no additional male genitourinary complaints, Denies hematuria, Denies oliguria, Denies difficulty urinating, Denies dysuria, Denies urinary frequency, Denies urinary hesitancy, Denies urinary incontinence and Denies urinary urgency Musculoskeletal: Musculoskeletal: Reports no additional musculoskeletal complaints, Denies numbness and Denies tingling Comments: left hand / thumb swelling Neurologic: Denies dizziness, Denies loss of vision, Denies numbness and Denies tingling Psychiatric: Psychiatric: Reports no additional psychiatric complaints Endocrine: Endocrine: Reports no additional endocrine complaints Hematologic/Lymphatic: Hematologic/Lymphatic: Reports no additional hematologic/lymphatic complaints Allergic/Immunologic: Allergic/Immunologic: Reports no additional allergic/immunologic complaints PMFSH Past Medical History Attestation statement: The following information was validated with the patient. (all information validated with the patient's ) Source: old records reviewed, obtained from family (patient's provided additional history and confirmed the history provided by the patient.) and nursing notes reviewed Onset Date is defined in the Problem List Problems that require an onset date and time if occurred within 24 hrs of arrival to the ED Aortic Dissection and Rupture; Neurologic impairment; Cardiopulmonary Arrest; Endotracheal Intubation; Insertion or Replacement of Mechanical Circulatory Assist Device Medical History S/P angiogram of extremity (04/29/23) Peripheral arterial disease Social History Social History Alcohol intake: never Patient Tobacco Use Status: Former Tobacco user Advance Directives: No Advance Directives Information Provided: No Physical Exam ED Vital Signs: Vital Signs - 24 hr 11/16/23 09:48 Temperature 96.7 F L Pulse Rate 81 Respiratory Rate 18 Blood Pressure 147/90 H Pulse Oximetry 94 Oxygen Delivery Method Room Air BMI result Body Mass Index 25.0 Const General: cooperative, no acute distress, alert and awake Nutritional Appearance: well nourished Orientation/consciousness: patient oriented x3 Limitations: no limitations HENMT Head: Yes normal to inspection and Yes atraumatic Ears: hearing grossly normal bilaterally and external ears normal General nose exam: Normal external nose present, no nasal discharge noted and no epistaxis Face and sinus: Yes normal facial exam, No abrasion and No laceration Mouth: Normal oral and palatal mucosa present, no drooling and no muffled voice Eyes General: appearance normal, both eyes and all related structures Periorbital: periorbital findings normal Eyelids: Yes eyelids normal Conjunctivae: conjunctivae normal Pupils: Equal, round and reactive pupils present EOM: EOMs intact bilaterally Neck Neck: Yes normal visual inspection, Yes full ROM and Yes no lymphadenopathy Chest Chest palpation & inspection: normal inspection of the chest Resp Effort & Inspection: normal respiratory effort and able to speak in complete sentences GI Inspection: Yes normal to inspection Neuro General: patient oriented x3 and moves all extremities Cranial nerves: Yes Equal, round and reactive pupils present Cognition (Neuro): normal cognition Motor exam (neuro): 5/5 motor strength present throughout Sensory Exam: Normal double simultaneous stimulation for sensation Coordination: [id number] test normal Extrem Other: minimal swelling to the base of the dorsal left thumb, no erythema, no warmth General: Yes full ROM and Yes capillary refill normal Psych Appearance: grossly normal Mental Status: mental status grossly normal Affect: normal affect Attitude: cooperative Thought process: Normal thought process present Thought content: Normal thought content present Insight: Good insight present (Psych) Medical Decision Making Medical Decision Making MDM Narrative: Patient is an 78 year old assigned male at with a history of PAD presenting to the emergency department today with left thumb / hand swelling. Patient's physical exam was as noted in the physical exam portion of this note. Patient's blood work showed mildly elevated ESR at 38 and CRP of 1.37. Patient's left hand x-ray showed evidence of arthritis at the base of the 1st digit. Patient's left UE US (venous and arterial) showed no acute process. I explained my physical exam findings as well as all test results to the patient and the patient's . I answered all questions asked by the patient and the patient's . I stressed the importance of the patient taking his medication as prescribed. I stressed the importance of the patient following up with his primary care provider and an orthopedic provider. I stressed the importance of the patient returning to the emergency department immediately if his symptoms were to worsen or if he were to develop any dizziness, shortness of breath, difficulty breathing, chest pain, blurry vision, loss of vision, nausea, vomiting, abdominal pain, fever, chills, back pain, or any other complaints. Patient and the patient's verbalized agreement and understanding with this treatment plan and discharge. Differential Diagnosis Differential Diagnoses: The differential diagnosis associated with the presentation includes Cellulitis - no WBC count, no erythema, no warmth, no defect in skin / wound Arthritis DVT PAD Admission/Observation Consideration of admission/observation: Escalation of care including admission/observation considered Patient would have been admitted to the hospital had his work up had any findings where hospital admission was appropriate and his clinical presentation warranted hospital admission. Lab Data [facility] Lab Attestation statement: I reviewed the patient's lab results. My interpretation of these results are in the [facility] Rationale portion of this note. 11/16/23 10:55 11/16/23 10:56 Labs: Lab Results 11/16/23 11/16/23 Range/Units 10:55 10:56 WBC 6.5 (4.8-10.8) X10*3/uL RBC 4.17 L (4.60-5.80) X10*6/uL Hgb 13.3 L (14.0-18.0) g/dl Hct 38.5 L (42.0-52.0) % MCV 92.3 (80.0-98.0) fL MCH 31.9 (27.0-33.0) pg MCHC 34.5 (31.0-36.0) g/dl RDW 13.1 (11.0-16.0) % Plt Count 183 (160-400) X10*3/uL MPV 8.8 L (9.4-12.4) fL Immature Gran % (Auto) 0.3 (0.0-0.4) % Neut % (Auto) 67.0 (45-73) % Lymph % (Auto) 20.9 (20-40) % Cannon % (Auto) 9.1 (2-11) % Eos % (Auto) 2.2 (0-4) % Baso % (Auto) 0.5 (0-2) % Lymph # (Auto) 1.4 (1.2-4.9) X10*3/uL Cannon # (Auto) 0.6 (0.1-1.2) X10*3/uL Eos # (Auto) 0.1 (0.0-0.4) X10*3/uL Baso # (Auto) 0.0 (0.0-0.2) X10*3/uL Abs Immat Gran (auto) 0.02 (0.00-0.03) X10*3/uL Absolute Neuts (auto) 4.3 (2.0-8.3) x10*3/uL Absolute Nucleated RBC 0.000 (0.0-0.012) X10*3/uL Nucleated RBC % (auto) 0.0 (0.0-0.2) /100WBC ESR 38 H (0-15) MM/HR Sodium 139 (135-145) mmol/L Potassium 4.3 (3.3-5.1) mmol/L Chloride 108 (96-108) mmol/L Carbon Dioxide 25 (22-29) mmol/L Anion Gap 10 L (12-20) BUN 15 (9-16) mg/dL Creatinine 1.00 (0.5-1.4) mg/dL Estim Creat Clear Calc 68.5 Estimated GFR > 60 Random Glucose 112 (60-115) mg/dL Calcium 9.3 (8.4-10.2) mg/dL Magnesium 2.0 (1.6-2.6) mg/dL Total Bilirubin 0.4 (0.0-1.0) mg/dL AST 17 (5-37) U/L ALT 15 (0-40) U/L Alkaline Phosphatase 92 (39-117) U/L C-Reactive Protein 1.37 H (< or = 0.50) mg/dL Total Protein 7.7 (6.5-8.0) g/dL Albumin 4.0 (3.5-5.0) g/dL Independent Interpretation I performed an independent interpretation of an: Plain X-Ray and Ultrasound Interpretation: My interpretation is in agreement with the radiologist's impression of these imaging studies. ULTRASOUND UPPER EXTREMITY ARTERIAL, LEFT CLINICAL INDICATION: Fall and history of clot COMPARISON: None TECHNIQUE: Real-time duplex on the examination of the left upper extremity arterial system was performed bilaterally . FINDINGS: LEFT: Left upper extremity peak systolic velocities (cm/s) and waveforms: Proximal subclavian artery: 147 biphasic Mid subclavian artery: 70 biphasic Distal subclavian artery: 96 triphasic Axillary artery: 98 triphasic Proximal brachial artery: 154 triphasic Mid brachial artery: 136 triphasic Distal brachial artery: 114 triphasic Mid radial artery: 122 biphasic Mid ulnar artery: 69 triphasic US/US arterial duplex UE LT IMPRESSION: 1. Patency of the visualized vasculature. 2. A few regions of hemodynamic alterations in vascular flow are noted. Dictated By: Dave Pham MD Signed By: Electronically signed by Dave Pham MD 11/16/23 1217 EXAMINATION: US VENOUS WITH DOPPLER UPPER EXTREMITY, LEFT CLINICAL INFORMATION: Swelling, history of thrombus Edema/swelling COMPARISON: None available. TECHNIQUE: Ultrasound of the upper extremity is performed using compression sonography and color and pulse Doppler flow with assessment of augmentation of flow. There is also imaging and Doppler assessment of the jugular and subclavian veins. Spectral analysis with color-flow imaging is performed. FINDINGS: Respiratory variation, normal compression are noted throughout the upper extremity including the brachial, cephalic and radial and ulnar veins. There is normal flow in the internal jugular, subclavian veins and axillary veins. There is no visible deep or superficial thrombophlebitis. US/US venous duplex UE LT IMPRESSION: No DVT demonstrated in the left upper extremity Dictated By: Windy Hernandez MD Signed By: Electronically signed by Windy Hernandez MD 11/16/23 1107 EXAMINATION: XR HAND, LEFT CLINICAL INFORMATION: Hand pain and swelling COMPARISON: None available. TECHNIQUE: PA, lateral, and oblique views of the left hand. FINDINGS: Decreased bone normal density which decreases sensitivity for fracture evaluation. No acute visible fracture or dislocation. Multi joint arthritic changes greatest at the first carpometacarpal joint. Joint spaces and alignment are otherwise maintained. Soft tissues are unremarkable. XR/XR hand LT min 3V IMPRESSION: 1. Decreased bone normal density which decreases sensitivity for fracture evaluation. 2. No acute visible fracture or dislocation. 3. Multi joint arthritic changes greatest at the first carpometacarpal joint. Dictated By: Dave Pham MD Signed By: Electronically signed by Dave Pham MD 11/16/23 1247 Radiology Impression Discussion of test interpretation with radiology: I have reviewed the radiologist's reading. Independent Historian Clinical information obtained from an independent historian. History obtained from or confirmed by: Spouse (patient's provided additional history and confirmed the history provided by the patient.) Critical Care Time Critical Care Time Critical Care Time: Yes Total Critical Care Time: 35 Attestation: I spent 35 minutes of Critical Care Time with this patient. This does not include time spent on separately reported billable procedures. Discharge Plan Discharge Clinical Impression: Arthritis Patient Disposition: Home, Self-Care Instructions: Osteoarthritis (DC) Additional Instructions: Follow up with your primary care provider and an orthopedic provider. Return to the emergency department immediately if your symptoms worsen or if you develop any dizziness, shortness of breath, difficulty breathing, chest pain, blurry vision, loss of vision, nausea, vomiting, abdominal pain, fever, chills, back pain, or any other complaints. Prescriptions: No Action clopidogrel [Plavix] 75 mg tablet 75 mg PO DAILY Qty: 30 0RF aspirin [Adult Low Dose Aspirin] 81 mg tablet,delayed release (DR/EC) 81 mg PO DAILY Qty: 30 0RF atorvastatin 10 mg tablet 10 mg PO DAILY Referrals: [facility] – [place] [facility] [Provider Group] (Call to establish and follow up with an orthopedic provider. ) Deshawn Ibrahim MD [Primary Care Provider] - Interventions: ED Discharge Assessment Last Done: 11/16/23 12:59 Discharge Date/Time: 11/16/23 12:59 Print Language: [place]i
[2023-11-16 11:00] LABS: MANUAL DIFF FLAG NO
[2023-11-16 11:07] LABS: Basophils Percent Auto 0.5 % (0-2); Eosinophils Absolute Auto 0.1 X10*3/uL (0.0-0.4); Eosinophils Percent Auto 2.2 % (0-4); Hematocrit 38.5 % (42.0-52.0); Hemoglobin 13.3 g/dl (14.0-18.0); Imm Gran Abs Auto 0.02 X10*3/uL (0.00-0.03); Imm Gran Pct Auto 0.3 % (0.0-0.4); Lymphocytes Absolute Auto 1.4 X10*3/uL (1.2-4.9); Lymphocytes Percent Auto 20.9 % (20-40); Mean Corpuscular HGB Conc 34.5 g/dl (31.0-36.0); Mean Corpuscular Hemoglobin 31.9 pg (27.0-33.0); Mean Corpuscular Volume 92.3 fL (80.0-98.0); Mean Platelet Volume 8.8 fL (9.4-12.4); Monocytes Absolute Auto 0.6 X10*3/uL (0.1-1.2); Monocytes Percent Auto 9.1 % (2-11); Neutrophils Absolute Auto 4.3 x10*3/uL (2.0-8.3); Platelet Count 183 X10*3/uL (160-400); Red Blood Count 4.17 X10*6/uL (4.60-5.80); Red Cell Distribution Width 13.1 % (11.0-16.0); White Blood Count 6.5 X10*3/uL (4.8-10.8)
[2023-11-16 11:15] LABS: Alanine Aminotransferase 15 U/L (0-40); Alkaline Phosphatase 92 U/L (39-117); Anion Gap 10 (12-20); Aspartate Amino Transferase 17 U/L (5-37); Bilirubin Total 0.4 mg/dL (0.0-1.0); Blood Urea Nitrogen 15 mg/dL (9-16); C Reactive Protein 1.37 mg/dL (< or = 0.50); Calcium 9.3 mg/dL (8.4-10.2); Carbon Dioxide 25 mmol/L (22-29); Chloride 108 mmol/L (96-108); Creatinine Clr Calc Pharmacy 68.5; Estimated Glomerular Filt Rate > 60; Glucose Random 112 mg/dL (60-115); Potassium 4.3 mmol/L (3.3-5.1); Sodium 139 mmol/L (135-145); Total Protein 7.7 g/dL (6.5-8.0)
[2023-11-16 11:49] LABS: Erythrocyte Sedimentation Rate 38 MM/HR (0-15)
== END 2023-11-16 12:59 | disposition home or self-care (01) ==
PROVIDERS: Physician Assistant Medical; Emergency Provider Emergency Medicine; PCP Internal Medicine Medical Oncology
DX: M19.042 Primary osteoarthritis, left hand (principal); R60.0 Localized edema; M79.642 Pain in left hand; Z79.899 Other long term (current) drug therapy
CPT/HCPCS: 36415; 73130; 80053; 83735; 85025; 85652; 86140; 93931; 93971; 99282; 99284

== ENCOUNTER 2024-01-06 13:36 | Emergency (ER) | payer MEDICARE, SELFPAY ==
--- NOTE | ~2024-01-06 | XR_ITS ---
EXAMINATION: XR SHOULDER, LEFT CLINICAL INFORMATION: Fall COMPARISON: 08/04/2015 chest TECHNIQUE: AP external rotation, Grashey, scapular Y, and axillary views of the left shoulder. FINDINGS: The distal clavicle is superiorly oriented relative to the acromium, not seen on remote chest radiograph. There is no acromioclavicular joint space narrowing. Glenohumeral joint maintained. Subchondral cysts identified left humeral head. No acute fracture recognized. XR/XR shoulder LT min 2V IMPRESSION: Radiographic findings suspicious for posttraumatic left acromioclavicular separation.
--- NOTE | ~2024-01-06 | CT_ITS ---
EXAMINATION: CT HEAD WITHOUT CONTRAST CT CERVICAL SPINE WITHOUT CONTRAST CLINICAL INFORMATION: Fall, pain. COMPARISON: None. TECHNIQUE: Contiguous axial imaging was performed from the skull base to vertex without intravenous administration of contrast. Contiguous axial imaging was performed from the upper chest through the skull base without intravenous administration of contrast. Coronal and sagittal reformats were obtained at the acquisition workstation. This CT examination was performed using dose optimization techniques as appropriate, variously including the following: *Automated exposure control *Adjustment of mA and/or kV according to patient size (this includes techniques or standardized protocols for targeted exams where dose is matched to indication/reason for exam; i.e. extremities or head) *Use of iterative reconstruction technique DLP: 679 and 477 mGy-cm FINDINGS: Head: There is no evidence of acute intracranial hemorrhage or edematous territorial infarction. Scattered hypoattenuation in the periventricular and deep white matter are consistent with moderate microangiopathy. Fox-white matter differentiation is preserved. Proportional prominence of the ventricles and sulcal spaces. No evidence for obstructive hydrocephalus. No abnormal mass effect or midline shift. No extra-axial fluid collections. No acute soft tissue or osseous abnormalities. Mild mucosal thickening of the paranasal sinuses. No air-fluid levels. The mastoids and middle ear cavities are clear. Bilateral lens extraction. The left mandibular condyle is slightly subluxated from the temporal groove, possibly related with patient's positioning with associated moderate degenerative changes. Cervical Spine: The atlantooccipital and atlantoaxial articulations remain well aligned. Straightening of the normal cervical lordosis. Grade 1 anterolisthesis of C7 on T1. Otherwise, there is anatomic alignment of the vertebral bodies and posterior elements. No evidence of acute fracture or subluxation. Moderate multilevel cervical spondylosis with intervertebral disc height loss and facet/uncovertebral hypertrophy leading to various degrees of neural foraminal encroachment. There is no prevertebral soft tissue swelling. There is a 1.5 cm thyroid nodule in the right inferior lobe (12:274). Remaining cervical soft tissues are normal in appearance. Mild biapical subpleural thickening/scarring in the visualized upper lungs. There is a 5 mm solid slightly irregular pulmonary nodule in the right apex (15:34). CT/CT cervical spine wo IV con IMPRESSION: 1. No acute intracranial pathology. 2. No acute cervical spinal fractures or malalignment. 3. Moderate cervical spondylosis. 4. The left mandibular condyle is mildly subluxated off the temporal groove, most likely related with patient's positioning, recommend correlation with physical examination. 5. Incidentally noted is made of a 1.5 cm thyroid nodule in the right inferior lobe. Based on the recommendations of the ACR Incidental Thyroid Findings Committee (JACR 2014; 12(2):143-50), further evaluation by thyroid ultrasound is recommended for solitary incidental thyroid nodules greater than or equal to 1.5 cm in largest axial dimension in patients age 35 years and older who do not have limited life expectancy or significant morbidities, unless clinically warranted. 6. There is a 5 mm solid pulmonary nodule in the right apex. According to the UPDATED 2017 Fleischner Society recommendations, the advised follow-up imaging for nodules <6mm in the upper lobes is not necessarily required in low-risk patients. In high-risk patients with a nodule in the upper lobe and/or demonstrating suspicious morphology, an optional CT follow-up at 12 months may be obtained. If stable at 12 months, no further follow-up is recommended.
[2024-01-06 13:54] VITALS: BP 153/81; PULSE 82; RESP 18; TEMP 37; O2SAT 95; BMI 25.0
--- NOTE | 2024-01-06 13:57 | ED_ITS ---
HPI - Fall General Chief Complaint: Fall Stated Complaint: Shoulder injury - fall today Time Seen by Provider: 01/06/24 15:06 Source: patient Mode of arrival: ambulatory Limitations: no limitations History of Present Illness HPI Narrative: This is an 78-year-old male presenting to the emergency department status post fall at approximately 01:15, patient was on the steps of [employer], he fell when he lost his footing onto his left shoulder, since then has been having left shoulder pain, discomfort and feels a deformity to the back of his left shoulder. Denies numbness, tingling. No head strike or loss of consciousness. Patient is not on blood thinners. He denies preceding symptoms to fall such as chest pain, shortness of breath, nausea, vomiting, headache, weakness, abdominal pain, visual disturbances GCS 15 Related Data Home Medications Medication Instructions Recorded Confirmed atorvastatin 10 mg tablet 10 mg PO DAILY 04/27/23 Previous Rx's Medication Instructions Recorded aspirin 81 mg tablet,delayed 81 mg PO DAILY #30 tabs 04/22/23 release (Adult Low Dose Aspirin) clopidogrel 75 mg tablet (Plavix) 75 mg PO DAILY #30 tabs 04/22/23 morphine 15 mg immediate release 15 mg PO Q6H PRN pain 5 days #10 01/06/24 tablet tabs Allergies Allergy/AdvReac Type Severity Reaction Status Date / Time No Known Allergies Allergy Unknown Verified 01/06/24 15:46 Review of Systems Review of Systems: Yes all other systems are reviewed and are negative [facility] Past Medical History Attestation statement: The following information was validated with the patient. Source: old records reviewed and nursing notes reviewed Medical History S/P angiogram of extremity (04/29/23) Peripheral arterial disease Social History Social History Alcohol intake: never Patient Tobacco Use Status: Former Tobacco user Advance Directives: No Advance Directives Information Provided: No Physical Exam Vital Signs: Vital Signs: Last Vital Signs Temp 97.4 F 01/06/24 15:11 Pulse 72 01/06/24 15:11 Resp 12 01/06/24 15:11 BP 179/87 H 01/06/24 15:11 Pulse Ox 97 01/06/24 15:11 O2 Del Method Room Air 01/06/24 15:11 BMI result Body Mass Index 25.0 vss Appearance: Alert.? Oriented X3.? No acute distress.? Head: Normocephalic, atraumatic, no step-offs or deformities Eyes: Pupils equal, round and reactive to light.? Neck: Normal inspection.? Neck supple.? CVS: Normal heart rate and rhythm.? Pulses normal.? Respiratory: No respiratory distress.? Breath sounds normal.? Abdomen: Soft and nontender.? Skin: Skin warm and dry.? Normal skin color.? Normal skin turgor.? Extremities: No lower extremity edema.? No calf ttp. 5/5 strength bilateral lower extremities. 5/5 strength to right upper extremity. Left upper extremity with limited range of motion and strength secondary to pain. 2+ radial pulses. Left upper extremity is abducted to his body with guarding. There is a deformity noted over the distal aspect of the clavicle. Back: No midline tenderness, no C-spine tenderness, full range of motion, no CVA tenderness bilaterally Neuro: Oriented X 3.? No motor deficit.? No sensory deficit. CN 2-12 intact Course Course Course Narrative: This is a rapid medical exam: Additional HPI, ROS, PE not included below will be deferred to primary provider. [place] on left shoulder. Denies head strike, LOC, or anticoagulation use. Reports mild decreased ROM with raising shoulder Reevaluation(s) Reevaluation #1: Ortho recommends outpatient follow up, sling and pain control Head and neck CT pending. Time: 16:07 Reevaluation #2: CT head and cervical spine. No acute intracranial pathology. No acute cervical spine fracture malalignment. Moderate cervical spondylosis. Left mandibular condyle mildly subluxed off the temporal groove most likely related to positioning patient not having discomfort there, opening closing his mouth without difficulty. Incidental note of a thyroid nodule. And pulmonary nodule. Have him follow-up with his PCP. Patient to be discharged home with morphine. Educated him on risks of this. Educated patient on diagnosis and treatment plan, answered all question, patient verbalizes understanding. At this time patient will be discharged home, advised to return with new or worsening symptoms. Educated on worrisome signs and symptoms and when to return. At this time I feel comfortable discharge home. Time: 16:19 Medications Administered Discontinued Medications Generic Name Dose Route Start Last Admin Trade Name Armando PRN Reason Stop Dose Admin Morphine Sulfate 15 mg 01/06/24 15:14 01/06/24 15:32 Morphine Sulfate Immed Release 15 Mg Tablet PO 01/06/24 15:15 15 mg ONCE ONE Administration Medical Decision Making Medical Decision Making [facility] Narrative: 78 yo m presents s/p fall w/ L shoulder pain and swelling since fall at 1315. Patient lost his footing, no preceding sx to fall PE No lower extremity edema.? No calf ttp. 5/5 strength bilateral lower extremities. 5/5 strength to right upper extremity. Left upper extremity with limited range of motion and strength secondary to pain. 2+ radial pulses. Left upper extremity is abducted to his body with guarding. There is a deformity noted over the distal aspect of the clavicle. Hx and pe concerned w/ fx and possible dislocation ? ac seperation. No signs of NV compromise. Unlikely traumatic injury to head, neck, chest, abd or pelvis. I do not suspect stroke, posterior stroke, ich. Unlikely PE, acs Plan- xray, head and neck ct ordered. Differential Diagnosis Differential Diagnoses: The differential diagnosis associated with the presentation includes Hx and pe concerned w/ fx and possible dislocation ? ac seperation. No signs of NV compromise. Unlikely traumatic injury to head, neck, chest, abd or pelvis. I do not suspect stroke, posterior stroke, ich. Unlikely PE, acs Admission/Observation Consideration of admission/observation: Escalation of care including admission/observation considered Independent Interpretation I performed an independent interpretation of an: EKG, Plain X-Ray (XR/XR shoulder LT min 2V IMPRESSION: Radiographic findings suspicious for posttraumatic left acromioclavicular separation.) and CT Scan (CT/CT head/brain wo IV con IMPRESSION: 1. No acute intracranial pathology. 2. No acute cervical spinal fractures or malalignment. 3. Moderate cervical spondylosis. 4. The left mandibular condyle is mildly subluxated off the temporal groove, most likely related with patient's positioning, recomme) Radiology Impression Discussion of test interpretation with radiology: I have reviewed the radiologist's reading. External Record Review External record reviewed: Inpatient record, Office record, Outpatient record, Prior outpatient labs, Prior outpatient radiology, Primary care record and Outside ED record Prescription Management I considered prescription management with: Pain Medication Critical Care Time Critical Care Time Critical Care Time: Yes Total Critical Care Time: 35 Attestation: I attest to this time spent taking care of the patient, obtaining history, physical, reviewing labs, imaging, speaking to my attending, speaking to specialist. Discharge Plan Discharge Clinical Impression: AC separation, Fall Patient Disposition: Home, Self-Care Instructions: Acromioclavicular Separation (ED), Fall Prevention (ED) Additional Instructions: Take your medications as prescribed. If you were prescribed antibiotics today, it is important that you take your medication to their entirety, do not skip any doses, do not finish them early. Follow-up with your primary care provider this week. Return to the emergency department with new or worsening symptoms. Such as fevers, chills, chest pain, shortness of breath, nausea, vomiting, dizziness, headache, vision changes, lethargy In case of emergency call 911 A narcotic has been sent to your pharmacy please take this as prescribed. Do not take more than the prescribed dose. Narcotic medications can cause addiction. Please do not mix them with alcohol. Do not take them while driving or operating machinery. Do not take them with any other narcotics. Do not share them with friends or family. They can cause constipation. Take them only for severe pain. Can increase risk for fall Please practice frequent ROM exercises to L elbow as frequently as possible to prevent frozen elbow. [id number] pain you can treat with ibuprofen every 6 hours, Tylenol every 4 as needed for pain or discomfort not to exceed maximum daily dose as listed on packaging. Severe pain take morphine as prescribed and please read the precautionary instructions in regards to safe narcotic handling. XR/XR shoulder LT min 2V IMPRESSION: Radiographic findings suspicious for posttraumatic left acromioclavicular separation. CT/CT head/brain wo IV con IMPRESSION: 1. No acute intracranial pathology. 2. No acute cervical spinal fractures or malalignment. 3. Moderate cervical spondylosis. 4. The left mandibular condyle is mildly subluxated off the temporal groove, most likely related with patient's positioning, recommend correlation with physical examination. 5. Incidentally noted is made of a 1.5 cm thyroid nodule in the right inferior lobe. Based on the recommendations of the ACR Incidental Thyroid Findings Committee (JACR 2014; 12(2):143-50), further evaluation by thyroid ultrasound is recommended for solitary incidental thyroid nodules greater than or equal to 1.5 cm in largest axial dimension in patients age 35 years and older who do not have limited life expectancy or significant morbidities, unless clinically warranted. 6. There is a 5 mm solid pulmonary nodule in the right apex. According to the UPDATED 2017 Fleischner Society recommendations, the advised follow-up imaging for nodules <6mm in the upper lobes is not necessarily required in low-risk patients. In high-risk patients with a nodule in the upper lobe and/or demonstrating suspicious morphology, an optional CT follow-up at 12 months may be obtained. If stable at 12 months, no further follow-up is recommended. Prescriptions: New morphine 15 mg tablet 15 mg PO Q6H PRN (Reason: pain) 5 Days Qty: 10 0RF Rx Instructions: Partial Fill upon patient request. No Action clopidogrel [Plavix] 75 mg tablet 75 mg PO DAILY Qty: 30 0RF aspirin [Adult Low Dose Aspirin] 81 mg tablet,delayed release (DR/EC) 81 mg PO DAILY Qty: 30 0RF atorvastatin 10 mg tablet 10 mg PO DAILY Referrals: [facility] [place] [facility] [Provider Group] - 1 day Physician,Unknown J [Physician] - 3 days Stand Alone Forms: Work/School Release
[2024-01-06 15:11] VITALS: BP 179/87; PULSE 72; RESP 12; TEMP 36.3; O2SAT 97
[2024-01-06] MEDS: Morphine Sulfate Immed Release 15 MG TABLET PO (15:32)
--- NOTE | 2024-01-06 16:21 | ECG_ITS ---
Test Reason : fall Blood Pressure : / mmHG Vent. Rate : 067 BPM Atrial Rate : 067 BPM P-R Int : 170 ms QRS Dur : 100 ms QT Int : 432 ms P-R-T Axes : 074 047 007 degrees QTc Int : 456 ms Normal sinus rhythm Possible Inferior infarct (cited on or before 18-JAN-2018) Abnormal ECG When compared with ECG of 18-JAN-2018 12:20, No significant change was found Referred By: Romel Mchugh Electronically Signed By:Laci Song
[2024-01-06 17:30] VITALS: BP 164/86; PULSE 63; RESP 20; TEMP 36.8; O2SAT 96
== END 2024-01-06 17:34 | disposition home or self-care (01) ==
PROVIDERS: Emergency Provider Internal Medicine; PCP Internal Medicine Medical Oncology
DX: S43.102A Unspecified dislocation of left acromioclavicular joint, initial encounter (principal); W10.9XXA Fall (on) (from) unspecified stairs and steps, initial encounter; Y93.9 Activity, unspecified; Y92.89 Other specified places as the place of occurrence of the external cause; Y99.9 Unspecified external cause status
CPT/HCPCS: 70450; 72125; 73030; 93005; 99284

== ENCOUNTER → 2024-01-06 16:21 | Outpatient (BNV) | payer MEDICARE, SELFPAY | PROVIDERS: Emergency Provider Internal Medicine; PCP Internal Medicine Medical Oncology; Visit Provider Internal Medicine Cardiovascular Disease | DX: R94.31 Abnormal electrocardiogram [ECG] [EKG] (principal) | CPT/HCPCS: 93010 ==

== ENCOUNTER 2024-01-21 08:20 | Outpatient (REF) | payer MEDICARE, SELFPAY ==
--- NOTE | ~2024-01-21 | XR_ITS ---
EXAMINATION: XR SHOULDER, LEFT CLINICAL INFORMATION: Left shoulder pain COMPARISON: 01/06/2024 TECHNIQUE: AP external rotation, Grashey, scapular Y, and axillary views of the left shoulder. FINDINGS: There is no evidence of fracture but there is AC joint separation with cephalad migration of the clavicle. There is soft tissue calcification adjacent to AC joint new since previous examination. XR/XR shoulder LT min 2V IMPRESSION: Interval healing of AC joint separation with cephalad migration of clavicle
== END 2024-01-21 08:21 | disposition home or self-care (01) ==
LOC: HO.HOSX 08:20
PROVIDERS: Visit Provider Orthopaedic Surgery
DX: S43.102A Unspecified dislocation of left acromioclavicular joint, initial encounter (principal)
CPT/HCPCS: 73030; 99202

== ENCOUNTER 2024-01-21 10:54 | Outpatient (AMB) | payer MEDICARE, SELFPAY ==
--- NOTE | 2024-01-21 11:22 | A.OFFVIS_ITS ---
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 Patient reports that he lost his footing and fell landing on the left shoulder. He was seen at [facility] ED the same date of injury where he was given a sling. Patient reports that the shoulder has been feeling better, he has been wearing a sling but taking it out to do some exercises. 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 HPI Details 2 weeks s/p fall with left AC seperation Feels ok and wonders what he should do Pain is minimal Has been wearing a sling [facility] Medical History S/P angiogram of extremity (04/29/23) Peripheral arterial disease Social History Alcohol intake: never Patient Tobacco Use Status: Former Tobacco user Physical Exam Const General: cooperative, healthy appearing, no acute distress and well groomed Orientation/consciousness: oriented to person and oriented to place HEENT Head: Yes normal to inspection, Yes normocephalic and Yes atraumatic Eyes General: appearance normal, both eyes and all related structures Alignment and Position: alignment normal Conjunctivae: conjunctivae normal EOM: EOMs intact bilaterally Neck Neck: Yes normal visual inspection and Yes trachea midline Resp Other: No rerpiratory distress Effort & Inspection: normal respiratory effort and able to speak in complete sentences Cardio Other: Palpable radial pulse with no appreciable rythmic abnormalities GI Other: No abdominal distension Back/Spine/Pelvis Cervical Spine: normal cervical lordosis and cervical ROM normal Skin General skin exam: no rashes or lesions noted Neuro General: oriented to person, oriented to place and gait normal Extrem Other: Lateral clavicle is prominent but only mild ttp at ACJ full ROM with mild discomfort neg emtpy can Results Reviewed Results Reviewed: I personally reviewed relevant radiographs. There is a 3 ACJ seperation Assessment & Plan Assessment & Plan (1) Acromioclavicular joint separation, type 3: Code(s): S43.109A - Unspecified dislocation of unspecified acromioclavicular joint, initial encounter Plan: ACJ seperation, likely type 3 no acute intervention warranted doing well may resume activity as tolerated no heavy lifting may discontinue sling Plan Discontinue sling use follow up PRN Orders: Orders XR shoulder LT min 2V Today M25.519 - Pain in unspecified shoulder Coding Level of Care Code New Pt Level 3 (86396) Diagnoses Acromioclavicular joint separation, type 3 S43.109A
== END 2024-01-21 11:54 | disposition home or self-care (01) ==
PROVIDERS: PCP Internal Medicine Medical Oncology; Visit Provider Orthopaedic Surgery
DX: S43.102A Unspecified dislocation of left acromioclavicular joint, initial encounter (principal); S43.122A Dislocation of left acromioclavicular joint, 100%-200% displacement, initial encounter
CPT/HCPCS: 99203

== ENCOUNTER 2024-02-19 09:46 | Outpatient (REF) | payer MEDICARE, SELFPAY ==
[2024-02-19 09:57] LABS: MANUAL DIFF FLAG NO
--- NOTE | 2024-02-19 09:59 | ECG_ITS ---
Test Reason : HTN, PERIPHERAL VAS DIS. PRE OP Blood Pressure : / mmHG Vent. Rate : 061 BPM Atrial Rate : 061 BPM P-R Int : 156 ms QRS Dur : 096 ms QT Int : 428 ms P-R-T Axes : 073 059 -18 degrees QTc Int : 430 ms Normal sinus rhythm Possible Inferior infarct (cited on or before 18-JAN-2018) Nonspecific ST and T wave abnormality Abnormal ECG When compared with ECG of 06-JAN-2024 16:27, No significant change was found Referred By: Deshawn Ibrahim Electronically Signed By:ERIC HONG
[2024-02-19 10:22] LABS: Basophils Percent Auto 0.7 % (0-2); Eosinophils Absolute Auto 0.2 X10*3/uL (0.0-0.4); Hematocrit 42.6 % (42.0-52.0); Hemoglobin 13.8 g/dl (14.0-18.0); Imm Gran Abs Auto 0.02 X10*3/uL (0.00-0.03); Imm Gran Pct Auto 0.4 % (0.0-0.4); Lymphocytes Absolute Auto 1.5 X10*3/uL (1.2-4.9); Lymphocytes Percent Auto 26.6 % (20-40); Mean Corpuscular HGB Conc 32.4 g/dl (31.0-36.0); Mean Corpuscular Hemoglobin 31.2 pg (27.0-33.0); Mean Corpuscular Volume 96.4 fL (80.0-98.0); Mean Platelet Volume 8.8 fL (9.4-12.4); Monocytes Absolute Auto 0.6 X10*3/uL (0.1-1.2); Monocytes Percent Auto 10.1 % (2-11); Neutrophils Absolute Auto 3.3 x10*3/uL (2.0-8.3); Neutrophils Percent Auto 59.2 % (45-73); Platelet Count 198 X10*3/uL (160-400); Red Blood Count 4.42 X10*6/uL (4.60-5.80); White Blood Count 5.6 X10*3/uL (4.8-10.8)
[2024-02-19 11:14] LABS: Alanine Aminotransferase 19 U/L (0-40); Albumin Level 4.2 g/dL (3.5-5.0); Alkaline Phosphatase 102 U/L (39-117); Anion Gap 13 (12-20); Aspartate Amino Transferase 19 U/L (5-37); Bilirubin Total 0.4 mg/dL (0.0-1.0); Blood Urea Nitrogen 14 mg/dL (9-16); Calcium 9.3 mg/dL (8.4-10.2); Carbon Dioxide 27 mmol/L (22-29); Chloride 105 mmol/L (96-108); Estimated Glomerular Filt Rate > 60; Glucose Random 98 mg/dL (60-115); Potassium 4.6 mmol/L (3.3-5.1); Sodium 140 mmol/L (135-145); Total Protein 7.7 g/dL (6.5-8.0)
== END 2024-02-19 09:47 | disposition home or self-care (01) ==
LOC: HO.LAB 09:46
PROVIDERS: PCP Internal Medicine Medical Oncology; Visit Provider Internal Medicine Medical Oncology
DX: Z01.818 Encounter for other preprocedural examination (principal); I73.9 Peripheral vascular disease, unspecified; I10 Essential (primary) hypertension
CPT/HCPCS: 36415; 80053; 85025; 93005

== ENCOUNTER → 2024-02-19 09:59 | Outpatient (BNV) | payer MEDICARE, SELFPAY | PROVIDERS: PCP Internal Medicine Medical Oncology; Visit Provider Internal Medicine | DX: R94.31 Abnormal electrocardiogram [ECG] [EKG] (principal) | CPT/HCPCS: 93010 ==

== ENCOUNTER 2024-02-29 10:37 | Outpatient (AMB) | payer MEDICARE, SELFPAY ==
[2024-02-29 10:38] VITALS: BMI 25.0
--- NOTE | 2024-02-29 10:38 | MHC.OFFVIS ---
Vital Signs 02/29/24 10:38 Height 6 ft 3 in Weight 200 lb BMI 25.0 Intake Visit Reasons: Left shoulder AC joint injury-DOI 01/06/24 Intake Note: sydnee is an 78 year old right hand dominant male who present today for a follow up of his left shoulder AC joint separation s/p fall on 01/05/24. Instructed to do no heavy lifting, discontinue sling and no acute interventions needed at the time. Patient reports that he is doing well with no concerns at this time. Allergies No Known Allergies Allergy (Unknown, Verified 02/29/24 10:40) HPI HPI Left shoulder AC joint injury-DOI 01/06/24: Details: Marquez is an 78 year old right hand dominant male who present today for a follow up of his left shoulder AC joint separation s/p fall on 01/05/24. Instructed to do no heavy lifting, discontinue sling and no acute interventions needed at the time. Patient reports that he is doing well with no concerns at this time. He has full motion but does notice superior migration of the lateral clavicle. [facility] Medical History (Updated 02/29/24 @ 10:41 by Nicolette Watkins CMA) Left retinal detachment S/P angiogram of extremity (04/29/23) Peripheral arterial disease Social History Alcohol intake: never Patient Tobacco Use Status: Former Tobacco user Physical Exam Vital Signs: BMI result Body Mass Index 25.0 Extrem Other: full painless ROM left shoulder Assessment & Plan Assessment & Plan (1) Acromioclavicular joint separation, type 3: Code(s): S43.109A - Unspecified dislocation of unspecified acromioclavicular joint, initial encounter Category: Medical Plan: Painless motion s/p AC joint separation. No intervention warranted. Coding Level of Care Code Est Pt Level 3 (11926) Diagnoses Acromioclavicular joint separation, type 3 S43.109A
== END 2024-02-29 13:28 | disposition home or self-care (01) ==
PROVIDERS: PCP Internal Medicine Medical Oncology; Referring Provider Internal Medicine Medical Oncology; Visit Provider Orthopaedic Surgery
DX: S43.102A Unspecified dislocation of left acromioclavicular joint, initial encounter (principal)
CPT/HCPCS: 99212

== ENCOUNTER → 2024-02-29 10:37 | Outpatient (BNVA) | payer MEDICARE, SELFPAY | PROVIDERS: PCP Internal Medicine Medical Oncology; Visit Provider Orthopaedic Surgery | DX: S43.109D Unspecified dislocation of unspecified acromioclavicular joint, subsequent encounter (principal); W19.XXXD Unspecified fall, subsequent encounter | CPT/HCPCS: 99212 ==

== ENCOUNTER 2024-04-22 14:02 | Outpatient (REF) | payer MEDICARE, SELFPAY ==
--- NOTE | ~2024-04-22 | XR_ITS ---
EXAMINATION: XR CHEST CLINICAL INFORMATION: Cough COMPARISON: Previous dated 08/31/2015 TECHNIQUE: 2 views of the chest were obtained. FINDINGS: Mild basilar atelectasis. The remainder the lung aleman are felt to be grossly clear. There is no failure. No effusion is seen The hilar structures are not felt to be pathologically enlarged. Degenerative change in the thoracic spine. No acute compression injury is seen. Mildly tortuous and ectatic arch and descending aorta XR/XR chest 2V IMPRESSION: Mild bilateral basilar atelectasis
== END 2024-04-22 14:03 | disposition home or self-care (01) ==
LOC: HO.LAB 14:02
PROVIDERS: PCP Internal Medicine Medical Oncology; Visit Provider Internal Medicine Medical Oncology
DX: R05.9 Cough, unspecified (principal)
CPT/HCPCS: 71046

== ENCOUNTER 2024-08-19 09:26 | Outpatient (REF) | payer MEDICARE, SELFPAY ==
[2024-08-19 10:04] LABS: MANUAL DIFF FLAG NO
[2024-08-19 10:51] LABS: Basophils Percent Auto 0.7 % (0-2); Eosinophils Absolute Auto 0.2 X10*3/uL (0.0-0.4); Eosinophils Percent Auto 3.5 % (0-4); Hematocrit 42.3 % (42.0-52.0); Hemoglobin 14.1 g/dl (14.0-18.0); Imm Gran Abs Auto 0.01 X10*3/uL (0.00-0.03); Imm Gran Pct Auto 0.2 % (0.0-0.4); Lymphocytes Absolute Auto 1.2 X10*3/uL (1.2-4.9); Lymphocytes Percent Auto 26.5 % (20-40); Mean Corpuscular HGB Conc 33.3 g/dl (31.0-36.0); Mean Corpuscular Volume 96.1 fL (80.0-98.0); Mean Platelet Volume 9.1 fL (9.4-12.4); Monocytes Absolute Auto 0.5 X10*3/uL (0.1-1.2); Monocytes Percent Auto 10.7 % (2-11); Neutrophils Absolute Auto 2.7 x10*3/uL (2.0-8.3); Neutrophils Percent Auto 58.4 % (45-73); Platelet Count 157 X10*3/uL (160-400); Red Cell Distribution Width 12.3 % (11.0-16.0); White Blood Count 4.6 X10*3/uL (4.8-10.8)
[2024-08-19 11:35] LABS: Alanine Aminotransferase 20 U/L (0-40); Albumin Level 4.1 g/dL (3.5-5.0); Alkaline Phosphatase 93 U/L (39-117); Anion Gap 12 (12-20); Aspartate Amino Transferase 23 U/L (5-37); Bilirubin Total 0.5 mg/dL (0.0-1.0); Blood Urea Nitrogen 15 mg/dL (9-16); Calcium 9.1 mg/dL (8.4-10.2); Carbon Dioxide 28 mmol/L (22-29); Chloride 104 mmol/L (96-108); Cholesterol 158 mg/dL (<200); Estimated Glomerular Filt Rate > 60; Glucose Fasting 110 mg/dL (60-99); HDL Cholesterol 38 mg/dL (>40); LDL Cholesterol Calculated 97 mg/dL (<100); Potassium 4.4 mmol/L (3.3-5.1); Sodium 140 mmol/L (135-145); Total Protein 7.4 g/dL (6.5-8.0); Triglycerides 116 mg/dL (<150)
== END 2024-08-19 09:27 | disposition home or self-care (01) ==
LOC: HO.LAB 09:26
PROVIDERS: PCP Internal Medicine Medical Oncology; Visit Provider Internal Medicine Medical Oncology
DX: I10 Essential (primary) hypertension (principal); E78.5 Hyperlipidemia, unspecified
CPT/HCPCS: 36415; 80053; 80061; 85025

== ENCOUNTER 2024-08-30 11:22 | Outpatient (REF) | payer SELFPAY | END 2024-08-30 11:23 | disposition home or self-care (01) | LOC: HO.HAP 11:22 | PROVIDERS: Visit Provider Internal Medicine Medical Oncology | DX: Z13.89 Encounter for screening for other disorder (principal) ==

== ENCOUNTER 2024-09-05 10:08 | Outpatient (REF) | payer MEDICARE, SELFPAY ==
--- NOTE | ~2024-09-05 | XR_ITS ---
EXAMINATION: XR CERVICAL SPINE CLINICAL INFORMATION: Cervicalgia. Chronic pain. COMPARISON: Most recent cervical spine CT dated 01/06/2024. TECHNIQUE: 6 views of the cervical spine, inclusive of flexion and extension views, were obtained. FINDINGS: Normal vertebral body alignment. The cervical lordosis is maintained. No acute fracture or subluxation. No loss of vertebral body height. Loss of intervertebral disc height with endplate degenerative changes at C4 through C7, similar when compared to the prior examination. Mild multilevel bilateral facet arthropathy. Normal atlantoaxial alignment. Unremarkable prevertebral soft tissues. XR/XR cervical spine 4V IMPRESSION: Moderate degenerative disc disease at C4 through C7, similar when compared to the prior examination. Electronically signed by: Vitaliy Chávez MD 09/05/2024 11:34 AM ANNE
== END 2024-09-05 10:09 | disposition home or self-care (01) ==
LOC: HO.XRAY 10:08
PROVIDERS: PCP Internal Medicine Medical Oncology; Visit Provider Internal Medicine Medical Oncology
DX: M54.2 Cervicalgia (principal); G89.29 Other chronic pain
CPT/HCPCS: 72050

== ENCOUNTER 2024-09-16 08:25 | Outpatient (REF) | payer MEDICARE, SELFPAY | END 2024-09-16 08:26 | disposition home or self-care (01) | LOC: HO.SH 08:25 | PROVIDERS: Visit Provider Internal Medicine Medical Oncology | DX: Z01.118 Encounter for examination of ears and hearing with other abnormal findings (principal); H90.3 Sensorineural hearing loss, bilateral | CPT/HCPCS: 92552; 92556 ==

== ENCOUNTER 2024-10-19 12:31 | Outpatient (REF) | payer MEDICARE, SELFPAY | END 2024-10-19 12:32 | disposition home or self-care (01) | LOC: HO.US 12:31 | PROVIDERS: PCP Internal Medicine Medical Oncology; Visit Provider Internal Medicine Medical Oncology | DX: E04.1 Nontoxic single thyroid nodule (principal) | CPT/HCPCS: 76536 ==

== ENCOUNTER 2025-01-23 09:08 | Outpatient (REF) | payer OTHER, SELFPAY ==
[2025-01-23 12:10] LABS: TSH reflex Free T4 1.83 uIU/mL (0.32-4.0)
== END 2025-01-23 09:09 | disposition home or self-care (01) ==
LOC: HO.LAB 09:08
PROVIDERS: PCP Internal Medicine Medical Oncology; Visit Provider Student in an Organized Health Care Education/Training Program
DX: E04.1 Nontoxic single thyroid nodule (principal)
CPT/HCPCS: 36415; 84443

== ENCOUNTER 2025-01-23 09:08 | Outpatient (AMB) | payer OTHER, SELFPAY ==
[2025-01-23 09:09] VITALS: BP 110/74; PULSE 55; O2SAT 100; BMI 24.3
--- NOTE | 2025-01-23 09:09 | A.OFFVIS_ITS ---
Vital Signs 01/23/25 09:09 Height 6 ft 3 in Weight 194 lb 7.163 oz BMI 24.3 BP 110/74 Blood Pressure Location Rt brachial Pulse 55 Pulse Source Pulse Oximeter Pulse Oximetry (%) 100 Oxygen Delivery Method Room Air Intake Visit Reasons: Thyroid nodule Intake Note: New patient present today for Thyroid nodule office visit. Accompanied by: Self / Same As Patient Allergies No Known Allergies Allergy (Unknown, Verified 01/23/25 09:09) Medication List - Last Reconciled 01/23/25 by Jeanne Dewey MD aspirin (Adult Low Dose Aspirin) 81 mg PO DAILY atorvastatin 10 mg PO DAILY HPI Comments Details: 79-year-old male coming in today for initial evaluation of solitary right-sided thyroid nodule. In January 2024, had a cervical spine CT which showed a 1.5 cm right inferior lobe thyroid nodule. 10/19/2024: Ultrasound of the thyroid , I reviewed the images myself, which showed a right inferior 1.4 X 1.3 X 1.5 cm mixed cystic solid, isoechoic nodule, with possibly some punctate echogenic foci, versus colloid, given the echogenic foci, this is a TR 4 category nodule, meeting criteria for FNA. No prior history of thyroid problems or medication. Patient currently denies heat or cold intolerance, diarrhea or constipation, hair loss, palpitation, anxiety, weight changes, mood changes, low energy, changes in appearance of eyes or vision changes, tremors, increased diaphoresis or dry skin. ? Patient denies any difficulty swallowing, pain on swallowing or voice changes or difficulty breathing. Patient denies any history of childhood neck radiation. Denies having ever used lithium, amiodarone or biotin supplements. Patient denies any family history of thyroid cancer or thyroid disease. No TFTs in the chart. Physical exam General: sitting comfortably in no acute distress HEENT: normocephalic/atraumatic, Neck: supple, palpable 1 cm right-sided nodule Cardiac: normal heart sounds Pulm: normal breath sounds B/L, no added breath sounds Abd: not distended, no tenderness Extremities: no edema, no signs of myxedema US THYROID 10/19/24 CLINICAL INFORMATION: Thyroid nodule. COMPARISON: None available. TECHNIQUE: Linear transducer grayscale and color Doppler examination with attention to the region of the thyroid. FINDINGS: SIZE: Measurements of the thyroid lobes and nodules are given in sagittal, anteroposterior and transverse dimensions respectively. Right Thyroid Lobe: 4.8 x 1.5 x 1.5 cm, volume 5.5 mL. Parenchyma: The gland echotexture is moderately heterogeneous. Thyroid vascularity is normal. Left Thyroid Lobe: 4.3 x 0.95 x 0.94 cm, volume 2.0 mL. Parenchyma: The gland echotexture is moderately heterogeneous. Thyroid vascularity is normal. Isthmus: 0.49 cm in maximum AP dimension. Estimated total number of nodules greater than or equal to 1 cm: 1. Food Preparation Supervisor nodules are described as follows: 1. Location: Right inferior. Size: 1.4 x 1.3 x 1.5 cm, volume 1.4 mL. Nodule characteristics: Composition: Mixed cystic and solid (1). Echogenicity: Isoechoic (1). Shape: Not taller than wide (0). Margins: Smooth (0). Echogenic Foci: Punctate echogenic foci (3). ACR TI-RADS total points: 5 ACR TI-RADS category: 4 NODES: No lymphadenopathy is seen in the tissue surrounding the thyroid gland. IMPRESSION: 1.5 cm RIGHT inferior TR 4 thyroid nodule meets criteria for biopsy. Fine-needle aspiration recommended. This study was presented to me on November 21, 2024 for interpretation. [facility] staff will provide results to referring provider at this time. [facility] Medical History Left retinal detachment S/P angiogram of extremity (04/29/23) Peripheral arterial disease Social History Alcohol intake: never Patient Tobacco Use Status: Former Tobacco user Physical Exam Vital Signs: Last Vital Signs Pulse 55 01/23/25 09:09 BP 110/74 01/23/25 09:09 Pulse Ox 100 01/23/25 09:09 Oxygen Delivery Method Room Air 01/23/25 09:09 BMI result Body Mass Index 24.3 Assessment & Plan Assessment & Plan (1) Right thyroid nodule: Code(s): E04.1 - Nontoxic single thyroid nodule Category: Medical Plan: 79-year-old male with no family history of thyroid cancer with no personal history of head or neck radiation who was diagnosed with a right sided thyroid nodule with ultrasound of the thyroid done in 10/19/2024: , I reviewed the images myself, which showed a right inferior 1.4 X 1.3 X 1.5 cm mixed cystic solid, isoechoic nodule, with possibly some punctate echogenic foci, versus colloid, given the echogenic foci, this is a TR 4 category nodule, meeting criteria for FNA. No recent TFTs in the chart. He does not have any compressive symptoms. I explained that it is common to have thyroid nodules. About 95% of the time these nodules are benign. However if the nodule is > 1 cm in size or suspicious on ultrasound then a fine need aspiration biopsy is recommended. We discussed that a FNAB involves 4-5 passes with a small gauge needle and material obtained is sent off for cytology.If the cytopathology is benign then the nodule will be followed annually with repeat ultrasounds. However if it is suspicious or malignant, we will need to discuss further management. Indeterminate cytology can be further investigated with repeat FNA, genetic testing or empiric lobectomy. Malignant cytology is managed with either lobectomy or total thyroidectomy. We discussed briefly that thyroid cancer is, in most patients, an indolent disease that does not affect mortality. We will arrange for FNA of the right inferior 1.5 cm thyroid nodule at next available opening and patient will follow up with me in clinic thereafter for results and further decision making. Plan: -scheduled for FNA of the right inferior 1.5 cm thyroid nodule and a follow up in 2 weeks after to discuss results -ordered TSH with reflex free T4 to be done now Plan I spent 45 minutes in reviewing the record, seeing the patient and documenting in the medical record. Orders: Orders TSH reflex Free T4 Today E04.1 - Nontoxic single thyroid nodule US biopsy thyroid Today E04.1 - Nontoxic single thyroid nodule Patient Instructions: Please do blood work today We will book you for a right sided thyroid biopsy and a follow up 2 weeks after to discuss results Coding Level of Care Code New Pt Level 4 (65288) Diagnoses Right thyroid nodule E04.1 Time Spent (min) 45
== END 2025-01-23 09:52 | disposition home or self-care (01) ==
LOC: HO.ENCR 09:08
PROVIDERS: PCP Internal Medicine Medical Oncology; Visit Provider Student in an Organized Health Care Education/Training Program
DX: E04.1 Nontoxic single thyroid nodule (principal)
CPT/HCPCS: 99204

== ENCOUNTER 2025-02-01 08:54 | Outpatient (REF) | payer OTHER, SELFPAY ==
--- NOTE | 2025-02-01 09:26 | PCN2_ITS ---
Brief Operative Note Date of procedure: 02/01/25 Pre-op diagnosis: right inferior 1.5 cm thyroid nodule FNA biopsy Post-op diagnosis: same Procedure: THYROID FINE NEEDLE ASPIRATION PROCEDURE NOTE ? PROCEDURE PERFORMED: Ultrasound-guided FNA of thyroid nodule ? OPERATORS: Dr. Jeanne Dewey ? INDICATION: right inferior 1.5 cm thyroid nodule ; FNA performed to assess for malignancy ? DESCRIPTION OF PROCEDURE: The indications for FNA (to assess for malignancy) were reviewed with the patient in detail. Potential complications (e.g., bleeding, infection, damage to local structures, absence of clear diagnosis after FNA) were reviewed. Alternatives to FNA including conservative observation or surgery were described. The patient understood and agreed to proceed. This was documented by the signing of the written informed consent form. A time-out was performed to confirm the patient's identity and the site of planned FNA. The nodule of interest was identified using ultrasound (14 MHz linear array probe). The site of FNA was then draped in the usual fashion and c arefully cleaned and prepared using alcohol swabs. The skin at the previously-identified site of needle insertion was iced and sprayed with numbing spray. Under ultrasound guidance, _4_ passes were performed using a 1.5-inch, 25-gauge needle, and sample was obtained via capillary action. The needle tip was clearly visualized to be within the nodule at the time of sampling for _4_ of _4_ passes The patient tolerated the procedure well. There were no immediate complications. A small adhesive bandage was applied, and the patient was advised to take acetaminophen (rather than NSAIDs) for any discomfort and to report any signs of inflammation/infection or marked swelling. IMPRESSION: Technically successful ultrasound-guided fine needle aspiration of right inferior 1.5 cm thyroid nodule . PLAN: The patient was advised that I will provide follow-up regarding the cytology result and any subsequent plans. Jeanne Dewey MD Endocrinology Attending Condition: stable Disposition: same day
--- OUTSIDE RECORDS SUMMARY | 2025-02-01 09:37 | XMS_ITS | Clinical Summary ---
Author Organization [employer] [facility] Address [address] [place] [address] [address] [place] [address] Care Team Providers Care Mechanical Engineering Coop Name Role Phone Unavailable Primary Care Provider Unavailabl e Allergies No known active allergies Medications atorvastatin (Lipitor) 10 MG tablet Take 1 tablet by mouth in the morning. Active Multiple Vitamins-Minera ls (Multivitamin) liquid Active amoxicillin (Amoxil) 500 MG capsule TAKE FOUR CAPSULES BY MOUTH ONE HOUR BEFORE APPOINTMENT Active Social History Tobacco Use Types Packs/Day Years Used Date Smoking Tobacco: Never Assessed Sex and Gender Information Value Date Recorded Sex Assigned at Male 09/01/2022 10:23 AM EDT Legal Sex Male 10:23 AM EDT Gender Identity Male 09/01/2022 10:23 AM EDT Sexual Orientation Straight 09/01/2022 10 :23 AM EDT Last Filed Vital Signs Vital Sign Reading Time Taken Comments Blood Pressure 123/87 10/16/2022 1:05 PM EST Pulse - - Temperature - - Respiratory Rate - - Oxygen Saturation - - Inhaled Oxygen Concentration - - Weight - - Height - - Body Mass Index - - Plan of Treatment Health Maintenance Due Date Last Done Comments Dental Oral Exam 1945 Dental Prophylaxis 1945 Dental X-Ray: Bitewings 1945 Dental X-Ray: Full Mouth 1945 Depression Screening 1945 Lipid Panel 1945 SDOH Screening 1943 Alcohol/Substance Use Screening 1955 Tobacco Screening 1955 Pneumococcal Vaccine: 50+ Years (2 of 2 - PPSV23) 07/30/2017 07/30/2016 DTaP/Tdap/Td Vaccines (1 - Tdap) 09/20/2017 09/19/2017 RSV Patients and Patients Aged 60 years or older (1 - 1-dose 75+ series) 2018 COVID-19 Vaccine ( season) 2024 08/06/2023, 02/20/2023, 07/16/2022, Additional history exists Influenza Vaccine (#1) 2024 3, 07/04/2022, 07/06/2020, Additional history exists Zoster Vaccines Completed 06/20/2021, 04/19/2021 HIB Vaccines Aged Out No longer eligi ble based on patient's age to complete this topic HPV Vaccines Aged Out No longer eligi ble based on patient's age to complete this topic Hepatitis A Vaccines Aged Out No long er eligible based on patient's age to complete this topic Hepatitis B Vaccines Aged Out No long er eligible based on patient's age to complete this topic IPV Vaccines Aged Out No longer eligi ble based on patient's age to complete this topic Meningococcal Vaccine Aged Out No todd simi eligible based on patient's age to complete this topic RSV under 20 months Aged Out No longe r eligible based on patient's age to complete this topic Rotavirus Vaccines Aged Out No longer eligible based on patient's age to complete this topic Insurance [facility] [place] [id number] [employer] [employer]
--- OUTSIDE RECORDS SUMMARY | 2025-02-01 09:37 | XMS_ITS ---
Author Organization Deshawn Ibrahim III, MD Address [address] [place] [address] [place] [address] Care Team Providers Care Asset Card Clerk Name Role Phone Deshawn Ibrahim Primary Care Provider Reason For Referral Reason evaluate and treat biopsy needed on 1 cm thyroid nodule seen on Ultrasound Diagnosis 1 Thyroid nodule (E04. 1) Referral Organization Deshawn Ibrahim III, MD Referring Provider First Name Deshawn Referring Provider Last Name Patrice Referring Provider Speciality Internal M edicine Referred Provider [facility], [facility] Referred Provider Specialty Endocrinolog y General Notes Marina Victorina [facility] 12/14 04:31:00 PM > ref/demo/progress note/ultrasound faxed to [facility] [phone] press 4 new pt ext, Marina Victorina [facility] 12/22/2024 01:22:21 PM >I called [facility] made pt appt with Dr Groves for Thursday01/23/2025 at 9:00am mailed and called pt with this appt information Referral Priority Routine Referral Appointment Date 01/23/2025 REASON FOR VISIT Test results/andres Dr Groves Social History Sex Assigned At : Social History Observation Description Sex Assigned At Male Encounters Encounter Location Date Provider Diagnosis Deshawn Ibrahim III, MD [address] [place] [address] [place] [phone] 11/28/2024 Deshawn Ibrahim Plan Of Treatment Referrals Referral Date Details 12/14/2024 12/14/2024, evaluate and treat biopsy needed on 1 cm thyroid nodule seen on Ultrasound, [facility] Next Appt Details Provider Name:Deshawn Parrrne, 02/15/2025 02:30:00 PM, [address] [facility] [address], [place], [address], Provider Name:Deshawn Parrrne, 10/09/2025 10:00:00 AM, [address] [place] [address] [address], [place], [address], Progress Notes * JIMBO Marquez ADOB:[birth year] (79 yo M)Acc No.[id number]:11/28/2024 Patient:?Marquez CHOI A :1945???Age:79 Y???Sex:Male Address:[address] [place] [address] [place], [address] Subjective: * Chief Complaints: * ???Test results/andres Dr Groves * Medical History:? * Surgical History:? * Hospitalization/Major Diagno stic Procedure:? * Medications:? Objective: * Vitals:? * Physical Examination:? Assessment: Plan: * Treatment: * Procedure Codes:? * true * Date:? Generated for Marcy garcia/Kosta/eTrajeevsmitting on:?02/01/2025 09:37 AM EDT Consultation Request Notes Referral Date Referring Provider Referred Provider Not es 12/14/2024 Deshawn Ibrahim [facility], [facility] evaluate and treat biopsy needed on 1 cm thyroid nodule seen on Ultrasound
--- OUTSIDE RECORDS SUMMARY | 2025-02-01 09:37 | XMS_ITS ---
Author Organization Deshawn Ibrahim III, MD Address [address] [place] [address] Care Team Providers Care Silicator Name Role Phone Deshawn Ibrahim Primary Care Provider REASON FOR VISIT FYI only Social History Sex Assigned At : Social History Observation Description Sex Assigned At Male Encounters Encounter Location Date Provider Diagnosis Deshawn Ibrahim III, MD [address] [place] [address] [place] [address] 11/17/2024 Deshawn Ibrahim Plan Of Treatment Next Appt Details Provider Name:Deshawn Ibrahim, 02/15/2025 02:30:00 PM, [address] [place] [address] [place], [address], Provider Name:Deshawn Ibrahim, 10/09/2025 10:00:00 AM, [address] [place] [address] [place], [address], Progress Notes * Marquez CHOI ADOB:[birth year] (79 yo M)Acc No.[id number]:11/17/2024 Patient:?Marquez CHOI :1945???Age:79 Y???Sex:Male Address: [place], [address] * true * Date:? Generated for Printi ng/Faxing/eTransmitting on:?02/01/2025 09:37 AM EDT
--- OUTSIDE RECORDS SUMMARY | 2025-02-01 09:37 | XMS_ITS ---
Author Organization Deshawn Ibrahim III, MD Address [address] [facility] [place] [address] Care Team Providers Care Atmospheric Physics Professor Name Role Phone Deshawn Ibrahim Primary Care Provider REASON FOR VISIT Message Social History Sex Assigned At : Social History Observation Description Sex Assigned At Male Encounters Encounter Location Date Provider Diagnosis Deshawn Ibrahim III, MD [address] [place] [address] [place] [address] 12/26/2024 Deshawn Ibrahim Plan Of Treatment Next Appt Details Provider Name:Deshawn Ibrahim, 02/15/2025 02:30:00 PM, [address] [place] [address] [place], [address], Provider Name:Deshawn Ibrahim, 10/09/2025 10:00:00 AM, [address] [place] [address] [place], [address], Progress Notes * Marquez CHOI ADOB:[birth year] (79 yo M)Acc No.[id number]:12/26/2024 Patient:?JIMBO Marquez Jerzy :1945???Age:79 Y???Sex:Male Address: [place], [address] * true * Date:? Generated for Printi ng/Faxing/eTransmitting on:?02/01/2025 09:37 AM EDT
--- OUTSIDE RECORDS SUMMARY | 2025-02-01 09:37 | XMS_ITS | Encounter Summary ---
Author Organization [employer] Address [address] [facility] [address]t [place] [address] Care Team Providers Care Denture Processor Name Role Phone Unavailable Primary Care Provider Unavailabl e Encounter Details Date Type Department Care Team (Late st Contact Info) Description 10/13/2022 Abstract [facility] [address] [place] [address] Dental, Provider, DDS Social History Tobacco Use Types Packs/Day Years Used Date Smoking Tobacco: Never Assessed Sex and Gender Information Value Date Recorded Sex Assigned at Male 09/01/2022 10:23 AM EDT Legal Sex Male 10:23 AM EDT Gender Identity Male 09/01/2022 10:23 AM EDT Sexual Orientation Straight 09/01/2022 10 :23 AM EDT COVID-19 Exposure Response Date Recorded In the last 10 days, have yo u been in contact with someone who was confirmed or suspected to have Coronavirus/COVID-19? No / Unsure 10/16/2022 1:00 PM EST documented as of this encounter Plan of Treatment Scheduled Orders Name Type Priority Associated Diagnoses Orde r Schedule 11 F 11 F RESIN-BASED COMPOSITE - 1 SURFACE, ANTERIOR Dental Routine [address] arting 10/16/2022 22 F 22 F RESIN-BASED COMPOSITE - 1 SURFACE, ANTERIOR Dental Routine [address] arting 10/16/2022 28 B 28 B RESIN-BASED COMPOSITE - 1 SURFACE, POSTERIOR Dental Routine [address] arting 10/16/2022 documented as of this encounter Procedures Procedure Name Priority Date/Time Associated Diagnosis Comments 21 CROWN - PORCELAIN/CERAMIC Routine 10/13/2022 12:00 AM EST 18 CROWN - PORCELAIN/CERAMIC Routine 10/13/2022 12:00 AM EST 16 CROWN - PORCELAIN/CERAMIC Routine 10/13/2022 12:00 AM EST 14 CROWN - PORCELAIN/CERAMIC Routine 10/13/2022 12:00 AM EST 13 CROWN - PORCELAIN/CERAMIC Routine 10/13/2022 12:00 AM EST 12 CROWN - PORCELAIN/CERAMIC Routine 10/13/2022 12:00 AM EST 5 CROWN - PORCELAIN/CERAMIC Routine 10/13/2022 12:00 AM EST 4 CROWN - PORCELAIN/CERAMIC Routine 10/13/2022 12:00 AM EST 29 D COMPOSITE FILLING Routine 10/13/2022 12:00 AM EST 28 O COMPOSITE FILLING Routine 10/13/2022 12:00 AM EST 6 DI COMPOSITE FILLING Routine 10/13/2022 12:00 AM EST 9 M COMPOSITE FILLING Routine 10/13/2022 12:00 AM EST 11 DI COMPOSITE FILLING Routine 10/13/2022 12:00 AM EST 32 DO AMALGAM FILLING Routine 10/13/2022 12:00 AM EST 12 ROOT CANAL Routine 10/13/2022 12:00 AM EST 5 ROOT CANAL Routine 10/13/2022 12:00 AM EST documented in this encounter Visit Diagnoses Not on filedocumented in this encounter
--- OUTSIDE RECORDS SUMMARY | 2025-02-01 09:37 | XMS_ITS | Encounter Summary ---
Author Organization [employer] [facility] Address [address] [facility] [address] [place] [address] Care Team Providers Care Saddle Tree Stitcher Name Role Phone Unavailable Primary Care Provider Unavailabl e Encounter Details Date Type Department Care Team (Latest Contact Info) Description 11/24/2018 Abstract [facility] Dental, Provider, DDS Social History Tobacco Use Types Packs/Day Years Used Date Smoking Tobacco: Never Assessed Sex and Gender Information Value Date Recorded Sex Assigned at Male 09/01/2022 10:23 AM EDT Legal Sex Male 10:23 AM EDT Gender Identity Male 09/01/2022 10:23 AM EDT Sexual Orientation Straight 09/01/2022 10 :23 AM EDT documented as of this encounter Plan of Treatment Not on file documented as of this encounter Visit Diagnoses Not on filedocumented in this encounter
== END 2025-02-01 08:55 | disposition home or self-care (01) ==
LOC: HO.US 08:54
PROVIDERS: PCP Internal Medicine Medical Oncology; Visit Provider Student in an Organized Health Care Education/Training Program
DX: E04.1 Nontoxic single thyroid nodule (principal)
CPT/HCPCS: 10005; 88173

== ENCOUNTER → 2025-02-01 08:54 | Outpatient (BNV) | payer OTHER, SELFPAY | PROVIDERS: PCP Internal Medicine Medical Oncology; Visit Provider Student in an Organized Health Care Education/Training Program | DX: E04.1 Nontoxic single thyroid nodule (principal) | CPT/HCPCS: 10005 ==

== ENCOUNTER 2025-02-20 19:35 | Emergency (ER) | payer OTHER, SELFPAY ==
--- NOTE | ~2025-02-20 | CT_ITS ---
CLINICAL HISTORY: abrupt onset severe sharp ABD pain CT angiography abdomen and pelvis with contrast. 3-D post processing. Comparison: None Findings: Atherosclerosis of the aorta and its branches. No aneurysm, occlusion or dissection. Mild dependent atelectasis. 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 No biliary duct dilatation. Fatty atrophy of the pancreas. Liver and spleen are within normal limits. Nodular thickening of the adrenal glands. No hydronephrosis. Symmetric contrast enhancement of the kidneys. Left renal cyst. Right inguinal hernia containing bowel. No bowel obstruction, pneumatosis or pneumoperitoneum. Mild prostatomegaly. Urinary bladder is within normal limits. Degenerative changes of the spine. IMPRESSION: 1. No acute intraabdominal or pelvic pathology. 2. No acute aortic findings. This document has been electronically signed by: Pop Ferrera MD on 02/21/2025 00:36:26
[2025-02-20 19:41] VITALS: BP 184/79; PULSE 69; RESP 20; TEMP 36.5; O2SAT 99; BMI 24.2
--- NOTE | 2025-02-20 19:42 | ED.GENADULT ---
HPI - General Adult General Chief complaint: Abdominal Pain Stated complaint: abd pain Time Seen by Provider: 02/20/25 20:46 Source: patient Mode of arrival: ambulatory Limitations: no limitations History of Present Illness ED Provider: Bonita Martinez NP HPI narrative: Patient is an 79-year-old male who presents emergency department for evaluation. He reports just prior to arrival he had sudden onset of severe sharp abdominal pain described as 9/10. He arrived to emergency department appearing significantly uncomfortable, hypertensive, difficulty to even sit still due to his degree of pain. Denied associated nausea, vomiting, diarrhea, constipation, genitourinary symptoms. Denying chest pain, shortness of breath or difficulty breathing. Denies dizziness or lightheadedness. Denies numbness or tingling of the extremities. Related Data Home Medications ?Medication ?Instructions ?Recorded ?Confirmed atorvastatin 10 mg tablet 10 mg PO DAILY 04/27/23 01/23/25 Previous Rx's ?Medication ?Instructions ?Recorded aspirin 81 mg tablet,delayed 81 mg PO DAILY #30 tabs 04/22/23 release (Adult Low Dose Aspirin) Allergies Allergy/AdvReac Type Severity Reaction Status Date / Time No Known Allergies Allergy Unknown Verified 02/20/25 19:43 Review of Systems Review of Systems: Yes all other systems are reviewed and are negative PMFSH Past Medical History Attestation statement: The following information was validated with the patient. Source: old records reviewed Medical History Right thyroid nodule Left retinal detachment S/P angiogram of extremity (04/29/23) Peripheral arterial disease Social History Social History Alcohol intake: never Patient Tobacco Use Status: Former Tobacco user Smoked in Last 30 Days: No Use of substances other than those prescribed or required for medical reasons: No Advance Directives: No Advance Directives Information Provided: No Do you have a plan to hurt others: No Plan Physical Exam ED Vital Signs: Vital Signs - 24 hr 02/20/25 19:41 02/20/25 20:00 02/20/25 21:16 Temperature 97.7 F 98.1 F 97.9 F Pulse Rate 69 69 69 Respiratory Rate 20 16 16 Blood Pressure 184/79 H 190/88 H 189/82 H Pulse Oximetry 99 98 99 Oxygen Delivery Method Room Air Room Air Room Air 02/20/25 22:00 Temperature 97.6 F Pulse Rate 71 Respiratory Rate 16 Blood Pressure 124/63 Pulse Oximetry 95 Oxygen Delivery Method Room Air BMI result Body Mass Index 24.2 Appearance: Alert.?Oriented to person, place and time. No acute distress.?Normal affect. Eyes: Pupils equal, round and reactive to light.? ENT: Pharynx normal.?? Neck: Normal inspection.? Neck supple.?? CVS: Heart sounds normal. Normal heart rate and rhythm.? Pulses normal.?? Respiratory: No respiratory distress.? Lung sounds clear to auscultation bilaterally?? Abdomen: Soft and non-tender. Normoactive bowel sounds. No pulsatile mass.?? Skin: Skin warm and dry.? Normal skin color.? Extremities: No lower extremity edema.? Neuro: Moves all extremities spontaneously. Sensation intact bilaterally. CN II-XII intact. No focal neuro deficits. Ambulates with normal steady gait. Course Course Course Narrative: This is a rapid medical exam performed by Doreen Slaughter NP: Additional HPI, ROS, PE not included below will be deferred to primary provider. Patient is an 79-year-old male presenting to the ED with complaint of sharp lower abdominal pain after eating chicken pot pie. Denies vomiting, diarrhea, constipation. Last BM this am. History of smoking in distant past. Hypertensive in triage. Plan: EKG, labs, UA Medications Administered Discontinued Medications Generic Name Dose Route Start Last Admin Trade Name Freq PRN Reason Stop Dose Admin Sodium Chloride 1,000 mls @ 999 mls/hr 02/20/25 22:15 02/20/25 22:24 Ns IV 02/20/25 23:15 999 mls/hr .Q1H1M [place] Administration Iohexol 80 ml 02/20/25 23:48 02/20/25 23:48 Iohexol 350 Mg/Ml 100 Ml Infus..Btl IV 02/20/25 23:49 80 ml ONCE ONE Administration Medical Decision Making Medical Decision Making [facility] Narrative: Patient is an 79-year-old male with past medical history of peripheral artery disease thyroid nodule who presents emergency department for evaluation of abrupt sudden onset severe abdominal pain as per HPI. He arrived to emergency department quite excruciating pain, having a difficult time even to sit still was hypertensive. At the time of my evaluation, just prior to he had went to the bathroom and passed gas reportedly with a complete resolution of his pain. Reviewed with my attending Dr. Guerra, will obtain CT angio of the abdomen and pelvis. He admits to having a history of an inguinal hernia in the past, has not previously been problematic for him. Moved his bowels this morning without difficulty denying any recent hematochezia or melena. No appreciable hernia on examination to suggest strangulation or incarceration. No genitourinary symptoms unlikely obstructive uropathy. Differential Diagnosis Differential Diagnoses: The differential diagnosis associated with the presentation includes (See narrative above) Admission/Observation Consideration of admission/observation: Escalation of care including admission/observation considered Lab Data MDM Lab Attestation statement: I reviewed the patient's lab results. CBC is without leukocytosis, has a mild anemia not meet transfusion criteria, no thrombocytopenia. No electrolyte derangement. No JEY. 02/20/25 20:00 02/20/25 20:00 Labs: Lab Results 02/20/25 02/20/25 Range/Units 20:00 20:48 WBC 7.6 (4.8-10.8) X10*3/uL RBC 4.15 L (4.60-5.80) X10*6/uL Hgb 13.5 L (14.0-18.0) g/dl Hct 39.5 L (42.0-52.0) % MCV 95.2 (80.0-98.0) fL MCH 32.5 (27.0-33.0) pg MCHC 34.2 (31.0-36.0) g/dl RDW 12.8 (11.0-16.0) % Plt Count 163 (160-400) X10*3/uL MPV 8.7 L (9.4-12.4) fL Immature Gran % (Auto) 0.4 (0.0-0.4) % Neut % (Auto) 59.4 (45-73) % Lymph % (Auto) 26.0 (20-40) % Mcminn % (Auto) 10.9 (2-11) % Eos % (Auto) 2.8 (0-4) % Baso % (Auto) 0.5 (0-2) % Lymph # (Auto) 2.0 (1.2-4.9) X10*3/uL [place]minn # (Auto) 0.8 (0.1-1.2) X10*3/uL Eos # (Auto) 0.2 (0.0-0.4) X10*3/uL Baso # (Auto) 0.0 (0.0-0.2) X10*3/uL Abs Immat Gran (auto) 0.03 (0.00-0.03) X10*3/uL Absolute Neuts (auto) 4.5 (2.0-8.3) x10*3/uL Absolute Nucleated RBC 0.000 (0.0-0.012) X10*3/uL Nucleated RBC % (auto) 0.0 (0.0-0.2) /100WBC Sodium 142 (135-145) mmol/L Potassium 4.0 (3.3-5.1) mmol/L Chloride 106 (96-108) mmol/L Carbon Dioxide 26 (22-29) mmol/L Anion Gap 14 (12-20) BUN 15 (9-16) mg/dL Creatinine 0.97 (0.5-1.4) mg/dL Estim Creat Clear Calc 71.3 Estimated GFR > 60 Random Glucose 149 H (60-115) mg/dL Calcium 8.8 (8.4-10.2) mg/dL Total Bilirubin 0.4 (0.0-1.0) mg/dL AST 33 (5-37) U/L ALT 22 (0-40) U/L Alkaline Phosphatase 91 (39-117) U/L Troponin I High Sens 11.3 (<3.5-35.0) ng/L Total Protein 7.2 (6.5-8.0) g/dL Albumin 4.0 (3.5-5.0) g/dL Lipase 12 (8-78) U/L Urine Color Yellow Urine Appearance Clear Urine pH 8.0 (5.0-9.0) Ur Specific [place] 1.015 (1.005-1.025) Urine Protein Negative (Neg-Trace) mg/dL Urine Glucose (UA) Negative (Negative) mg/dL Urine Ketones Negative (Negative) mg/dL Urine Blood Small (1+) H (Negative) Urine Nitrite Negative (Negative) Ur Leukocyte Esterase Negative (Negative) Urine RBC 11-20 H (0-2) /HPF Urine WBC 0-5 (0-5) /HPF Ur Squamous Epith Cells 0-2 (0-2) /HPF Urine Bacteria None Seen (None Seen) Hyaline Casts 0-2 (0-2) /LPF Independent Interpretation I performed an independent interpretation of an: EKG (Normal sinus rhythm, ventricular rate of 68, QTC 452, normal SHANI, no ST-elevation.) Radiology Impression Discussion of test interpretation with radiology: I have reviewed the radiologist's reading. Radiologist Impression: CT angiography abdomen and pelvis with contrast. 3-D post processing. Comparison: None Findings: Atherosclerosis of the aorta and its branches. No aneurysm, occlusion or dissection. Mild dependent atelectasis. 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 No biliary duct dilatation. Fatty atrophy of the pancreas. Liver and spleen are within normal limits. Nodular thickening of the adrenal glands. No hydronephrosis. Symmetric contrast enhancement of the kidneys. Left renal cyst. Right inguinal hernia containing bowel. No bowel obstruction, pneumatosis or pneumoperitoneum. Mild prostatomegaly. Urinary bladder is within normal limits. Degenerative changes of the spine. IMPRESSION: 1. No acute intraabdominal or pelvic pathology. 2. No acute aortic findings. Independent Historian Clinical information obtained from an independent historian. History obtained from or confirmed by: Spouse External Record Review External record reviewed: Outpatient record Chronic Conditions Patient?s care impacted by: Other (See narrative above) Discharge Plan Discharge Clinical Impression: Abdominal pain Patient Disposition: Home, Self-Care Instructions: Abdominal Pain (ED) Additional Instructions: You were evaluated in the emergency department for abrupt onset of severe abdominal pain that thankfully resolved after passing gas while in the emergency department. Given the onset of the pain, a CT scan was obtained, there was no abnormal findings of the blood vessels as we discussed, no evidence of bowel obstruction severe constipation. Please increase your fluid intake over the next few days, eat well-balanced diet, and follow-up with your primary care provider. Avoid foods that may cause you to have increased gas. Prescriptions: No Action aspirin [Adult Low Dose Aspirin] 81 mg tablet,delayed release (DR/EC) 81 mg PO DAILY Qty: 30 0RF atorvastatin 10 mg tablet 10 mg PO DAILY Referrals: Deshawn Ibrahim MD [Primary Care Provider] - Print Language: Uzbek
--- NOTE | 2025-02-20 19:44 | ECG_ITS ---
Test Reason : abdominal pain Blood Pressure : */* mmHG Vent. Rate : 68 BPM Atrial Rate : 68 BPM P-R Int : 178 ms QRS Dur : 104 ms QT Int : 426 ms P-R-T Axes : 70 68 18 degrees QTcB Int : 452 ms Normal sinus rhythm Cannot rule out Inferior infarct (cited on or before 18-Jan-2018) Abnormal ECG When compared with ECG of 19-Feb-2024 10:05, No significant change was found Referred By: Debra Slaughter Electronically Signed By: ERIC HONG
[2025-02-20 20:00] VITALS: BP 190/88; PULSE 69; RESP 16; TEMP 36.7; O2SAT 98
[2025-02-20 20:05] LABS: MANUAL DIFF FLAG NO
[2025-02-20 20:10] LABS: Basophils Percent Auto 0.5 % (0-2); Eosinophils Absolute Auto 0.2 X10*3/uL (0.0-0.4); Eosinophils Percent Auto 2.8 % (0-4); Hematocrit 39.5 % (42.0-52.0); Hemoglobin 13.5 g/dl (14.0-18.0); Imm Gran Abs Auto 0.03 X10*3/uL (0.00-0.03); Imm Gran Pct Auto 0.4 % (0.0-0.4); Mean Corpuscular HGB Conc 34.2 g/dl (31.0-36.0); Mean Corpuscular Hemoglobin 32.5 pg (27.0-33.0); Mean Corpuscular Volume 95.2 fL (80.0-98.0); Mean Platelet Volume 8.7 fL (9.4-12.4); Monocytes Absolute Auto 0.8 X10*3/uL (0.1-1.2); Monocytes Percent Auto 10.9 % (2-11); Neutrophils Absolute Auto 4.5 x10*3/uL (2.0-8.3); Neutrophils Percent Auto 59.4 % (45-73); Platelet Count 163 X10*3/uL (160-400); Red Blood Count 4.15 X10*6/uL (4.60-5.80); Red Cell Distribution Width 12.8 % (11.0-16.0); White Blood Count 7.6 X10*3/uL (4.8-10.8)
--- OUTSIDE RECORDS SUMMARY | 2025-02-20 20:21 | XMS_ITS | Clinical Summary ---
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
--- OUTSIDE RECORDS SUMMARY | 2025-02-20 20:22 | XMS_ITS | Encounter Summary ---
Author Organization [employer] Address 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
--- OUTSIDE RECORDS SUMMARY | 2025-02-20 20:22 | XMS_ITS ---
Author Organization Deshawn Ibrahim III, MD Address [address] [place] [address] Care Team Providers Care Planer Hand Name Role Phone Deshawn Ibrahim Primary Care Provider [phone] Allergies Allergen (clinical drug ingredient) Drug/Non Drug Allergy documented on EMR Reaction Allergy Type Onset Date Status No Known Drug Allergy Unknown Drug Allergy Active REASON FOR VISIT 1.5 cm lower pole right thyroid nodule, Benign prostatic hypertrophy, Left inguinal hernia, Hearingloss, History of colon cancer, Recent sinusitis, Peripheral vascular disease Medications Medication SIG (Take, Route, Frequency, Duration) Notes Start Date End Date Status Multi For Him - as directed Orally Active Aspirin 81 81 MG 1 tablet Orally Once a day Active Atorvastatin Calcium 10 MG Take 1 tablet by mouth once daily Active Social History Tobacco Use: Social History Observation Description Date Details (start date - stop date) Former Smoker NA - NA Sex Assigned At : Social History Observation Description Sex Assigned At Male Tobacco Control (Standard) Question Answer Notes Tobacco use: Former smoker How long has it been since you last smoked? [address] ter than 10 years Additional Findings: Tobacco non-user Ex-cigaret te smoker Vital Signs Temperature 97.3 degrees Fahrenheit 02/16/20 25 Blood pressure systolic 114 mm Hg 02/16/20 25 Blood pressure diastolic 58 mm Hg 025 Heart Rate 75 /min 02/15/2025 Height 74 in 02/15/2025 Weight 192 lbs 02/15/2025 BMI 24.65 kg/m2 02/15/2025 Encounters Encounter Location Date Provider Diagnosis Deshawn Ibrahim III, MD [address] [place] [address] [place] [address] 02/15/2025 Deshawn Patrice Essential hypertensi on I10 ; Thyroid nodule E04.1 ; Hyperlipemia E78.5 ; BPH (benign prostatic hyperplasia) N40.0 ; Left inguinal hernia K40.90 ; Bunion, left foot M21.612 ; Former smoker Z87.891 ; Sensorineural hearing loss (SNHL) of both ears H90.3 ; Malignant neoplasm of colon, unspecified part of colon C18.9 and Peripheral vascular disease I73.9 Assessments Encounter Date Diagnosis (ICD Code) Assessment Notes Treat ment Notes Treatment Clinical Notes 02/15/2025 Essential hypertension (ICD-10 - I10) His blood pressure is currently stable. No change in his regimen was made today. 02/15/2025 Thyroid nodule (ICD-10 - E04.1) The right lower pole nodule was recently biopsied February 01, 2025. The significance of rare Hurthle cell changes is unclear to me and I will speak with pathology. No overt thyroid cancer was detected. 02/15/2025 Hyperlipemia (ICD-10 - E78.5) Comprehensive blood work with a fasting lipid profile will be ordered periodically. No change in his regimen was made today. 02/15/2025 BPH (benign prostatic hyperplasia) (ICD-10 - N40.0) He has been rising one or 2 times a night to urinate. This depends upon fluid intake. We have discussed lifestyle modifications that may to reduce nocturia. 02/15/2025 Left inguinal hernia (ICD-10 - K40.90) He has bilateral hernias. The left is larger in the right is more painful. He is wearing a truss to controls. Both of them. He does not wish to have them repaired. We had a long discussion about the possibilities of incarceration. He now has a clear idea of when he should go to the emergency room for pain at the hernias. 02/15/2025 Bunion, left foot (ICD-10 - M21.612) His symptoms are minimal. No change in his regimen or shear type is necessary today. 02/15/2025 Former smoker (ICD-10 - Z87.891) He is highly motivated not to smoke. He has a plan to prevent relapse in times of stress and illness. 02/15/2025 Sensorineural hearing loss (SNHL) of both ears (ICD-10 - H90.3) The symptom is mild and he does not wish further referral to ear nose and throat. The appearance of his tympanic membranes was normal. 02/15/2025 Malignant neoplasm of colon, unspecified part of colon (ICD-10 - C18.9) There is no sign of recurrent colon cancer on today's examination. Surveillance will continue. There have been no further sessions of cancer in his family. Since his last visit. 02/15/2025 Peripheral vascular disease (ICD-10 - I73.9) His claudication is minor and stable. No change in his regimen as necessary today. He will resume taking 81 mg of aspirin daily on February 25, 2024 Plan Of Treatment Medication Medication Name Sig Start Date Stop Date Notes Multi For Him - as directed Orally Aspirin 81 81 MG 1 tablet Orally Once a day Atorvastatin Calcium 10 MG Take 1 tablet by mouth once daily Pending Test Test Name Order Date PROFILE, FASTING (COMPREHENSIVE METABOLI C) 02/15/2025 PSA, TOTAL 02/15/2025 CBC w DIFF 02/15/2025 Lipid Panel 02/15/2025 Next Appt Details Follow Up: 3 Months, Reason: OV Provider Name:Deshawn Ibrahim, 05/17/2025 10:30:00 AM, [address] [place] [address] [address], [place], [address], Provider Name:Deshawn Ibrahim, 10/09/2025 10:00:00 AM, [address] [place] [address] [address], [place], [address], Progress Notes * Marquez CHOI ADOB:[birth year] (79 yo M)Acc No.[id number]:02/15/2025 Progress Notes Patient:?Darci CHOIl A Provider:?Deshawn Ibrahim MD :1945???Age:79 Y???Sex:Male Romie e:02/15/2025 Address:[address] [place] [address] [id number] Subjective: * Chief Complaints: * ???1.5 cm lower pole right t hyroid noduleBenign prostatic hypertrophyLeft inguinal herniaHearing lossHistory of colon cancerRecent sinusitisPeripheral vascular disease * HPI: ???COVID-19 Screening:?He was recently found to have a 1.5 cm right lower pole thyroid nodule.? This was biopsied February 01, [address] Dewey of endocrinology.? The pathology reeport shows abundant colloid, a few benign follicular cells and rare Hurthle cell 'changes'. He tolerated the procedure well.? He continues to rise from sleep once or twice a night to urinate.He does not complain of claudication. His hearing loss is unchanged.? He has no new symptoms.? His examination today showed no new findings.? He will follow-up with endocrinology.? The issue of possible rebiopsy will be discussed.His recent TSH was within normal limits. ?Questions?Have you had any new onset fever, chills, cough, congestion, sore throat, shortness of breath, muscle aches??No * ROS:?General/Constitutional:?pain?Arthritis and mild claudication, otherwise only normal aches and pains.?Chills?denies.?Fatigue?admits.?Fever?denies.?ENT:?Decreased hearing?in both ears.?Respiratory:?Cough?denies.?Cardiovascular:?Chest pain with exertion?denies.?Dyspnea on exertion?denies.?Shortness of breath?denies.?Gastrointestinal:?Constipation?occasional.?Decreased appetite?denies.?Diarrhea?denies.?Heartburn?denies.?Nausea?denies.?Rectal bleeding?denies.?Vomiting?denies.?Hematology:?bruising?denies.?petechiae?denies.?Swollen glands?none have been noted.?Genitourinary:?Frequent urination?once a night.?Musculoskeletal:?Muscle aches?denies.?Painful joints?denies.?Sciatica?denies.?Weakness?denies.?Skin:?Itching?denies.?Rash?denies.?Skin lesion(s)?denies.?Neurologic:?Difficulty speaking?denies.?Dizziness?denies.?Headache?denies.?Low back pain?denies.?Psychiatric:?Depressed mood?denies.? * Medical History:? * Surgical History:?bilateral knee surgery bilateral cataract surgery No history * Hospitalization/Major Diagno stic Procedure:?No history * Family History:?Father: dece ased 70 yrs.?Mother: 72 yrs, cad, old age.?Siblings: .?2 brother(s) . .? His father of a stroke and his mother of old age. His brother at the age of 61 of colon cancer. He has no children. He is not aware of any other cases of colorectal cancer or breast cancer or ovarian cancer. He is not aware of any family history of mental illness or substance use disorder. * Social History:?Tobacco Use:?Tobacco Control (Standard)?Tobacco use:?Former smoker ?How long has it been since you last smoked??Greater than 10 years ?Additional Findings: Tobacco non-user?Ex-cigarette smoker ???He was born in [place]. He has been to [place] for 18 years. He has no children. 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 He lives in [facility]. He works for the [employer]. He was born in [facility] and is a [place]. He is a of the [employer] having served at [employer]. He is a former smoker. * Medications:?TakingAspirin 8 1 81 MG Tablet Delayed Release 1 tablet Orally Once a day Multi For Him - Tablet as directed Orally Atorvastatin Calcium 10 MG Tablet Take 1 tablet by mouth once daily Medication List reviewed and reconciled with the patientTaking Aspirin 81 81 MG Tablet Delayed Release 1 tablet Orally Once a day Taking Multi For Him - Tablet as directed Orally Taking Atorvastatin Calcium 10 MG Tablet Take 1 tablet by mouth once daily Medication List reviewed and reconciled with the patient * Allergies:?No Known Drug All ergyno[Allergies Verified] Objective: * Vitals:?Ht: 74, Wt:192, BMI: 24.65, BP:114/58, HR:75, Temp:97.3, Ht-cm: 187.96, Wt-k.09. * ???Past Orders: ???Lab:TSH reflex Free T4 (O rder Date - 01/23/2025) (Collection Date & Time - 01/23/2025 10:11 AM) ? Value Reference Range ?TSH reflex Free T4 1.83 0 .32-4.0 - uIU/mL * Examination: ???General Examination: ?GENERAL APPEARANCE:?pleasant, well nourished, well developed, in no acute distress, calm and relaxed, elderly man.?HEAD:?atraumatic, normocephalic.?EYES:?eomi, perrla, anicteric, conjugate.?EARS:?normal.?NOSE:?septum intact.?ORAL CAVITY:?normal, unremarkable.?NECK/THYROID:?no jugular venous distention, no carotid bruit, thyroid nodule not palpable.?LYMPH NODES:?no enlarged lymph nodes,spleen normal.?SKIN:?no suspicious lesions, anicteric.?HEART:?no clicks, gallops, murmurs, or rubs, regular rhythm, S1, S2 normal, no s3, or vascular bruits.?LUNGS:?, diminished breath sounds throughout, no wheezes, rales, rhonchi, good air movement.?BREASTS:??no masses palpable bilaterally.?ABDOMEN:?bowel sounds normal, no ascites, no organomegaly, no mass.?RECTAL EXAM:?not examined.?MUSCULOSKELETAL:?extremities unremarkable, no clubbing, cyanosis or edema.?PERIPHERAL PULSES:?normal.?NEUROLOGIC:?alert and oriented, cranial nerves 2-12 grossly intact, deep tendon reflexes 2+ symmetrical, motor strength normal upper and lower extremities, sensory exam intact.?PSYCH:?alert, oriented.? Assessment: * Assessment: 1.?Thyroid nodule - E04.1 (P rimary)???Notes :The right lower pole nodule was recently biopsied February 01, 2025.? The significance of rare Hurthle cell changes is unclear to me and I will speak with pathology.? No overt thyroid cancer was detected.???2.?Essential hypertension - I10???Notes :His blood pressure is currently stable.? No change in his regimen was made today.???3.?Hyperlipemia - E78.5???Notes :Comprehensive blood work with a fasting lipid profile will be ordered periodically.? No change in his regimen was made today.???4.?BPH (benign prostatic hyperplasia) - N40.0???Notes :He has been rising one or 2 times a night to urinate.? This depends upon fluid intake.? We have discussed lifestyle modifications that may to reduce nocturia.???5.?Left inguinal hernia - K40.90???Notes :He has bilateral hernias. The left is larger in the right is more painful. He is wearing a truss to controls. Both of them. He does not wish to have them repaired. We had a long discussion about the possibilities of incarceration. He now has a clear idea of when he should go to the emergency room for pain at the hernias.???6.?Bunion, left foot - M21.612???Notes :His symptoms are minimal. No change in his regimen or shear type is necessary today.???7.?Former smoker - Z87.891???Notes :He is highly motivated not to smoke. He has a plan to prevent relapse in times of stress and illness.???8.?Sensorineural hearing loss (SNHL) of both ears - H90.3???Notes :The symptom is mild and he does not wish further referral to ear nose and throat. The appearance of his tympanic membranes was normal.???9.?Malignant neoplasm of colon, unspecified part of colon - C18.9???Notes :There is no sign of recurrent colon cancer on today's examination. Surveillance will continue. There have been no further sessions of cancer in his family. Since his last visit.???10.?Peripheral vascular disease - I73.9???Notes :His claudication is minor and stable. No change in his regimen as necessary today. He will resume taking 81 mg of aspirin daily on February 25, 2024??? Plan: * Treatment: 2.?Hyperlipemia?LAB: PROFILE, FASTING (COMPREHENSIVE METABOLIC) ?LAB: PSA, TOTAL ?LAB: CBC w DIFF ?LAB: Lipid Panel 3.?BPH (benign prostatic hyp erplasia)?LAB: PROFILE, FASTING (COMPREHENSIVE METABOLIC) ?LAB: PSA, TOTAL ?LAB: CBC w DIFF ?LAB: Lipid Panel * Procedure Codes:? * Preventive Medicine:? ??Counseling:?Smoking/Tobacco Use?Patient counseled on the dangers of tobacco use and urged to quit.?02/15/2025 * Follow Up:?3 Months (Reason: OV) * Images: * Sign off status: Completed true * Provider:?Deshawn Ibrahim MD Date:?01/31 Generated for Marcy garcia/Kosta/Lioritting on:?02/20/2025 08:21 PM EDT History and Physical Notes * HPI (History of Present Illness) Category Sub-Category Detail Notes COVID-19 Screening Questions Have you had any new onset fever, chills, cough, congestion, sore throat, shortness of breath, muscle aches?: No Examination Category Sub-Category Detail Notes General Examination GENERAL APPEARANCE: pleasant , well nourished, well developed, in no acute distress, calm and relaxed, elderly man HEAD: atraumatic, normocep halic EYES: eomi, perrla, anicte catalina, conjugate EARS: normal NOSE: septum intact NECK/THYROID: no jugular venous di stention, no carotid bruit, thyroid nodule not palpable HEART: no clicks, gallops, murmurs, or rubs, regular rhythm, S1, S2 normal, no s3, or vascular bruits LUNGS: , diminished breath sounds throughout, no wheezes, rales, rhonchi, good air movement ABDOMEN: bowel sounds normal, no ascites, no organomegaly, no mass NEUROLOGIC: alert and oriented, cranial nerves 2-12 grossly intact, deep tendon reflexes 2+ symmetrical, motor strength normal upper and lower extremities, sensory exam intact SKIN: no suspicious lesion s, anicteric PERIPHERAL PULSES: normal BREASTS: no masses palpable b ilaterally MUSCULOSKELETAL: extremities unremark able, no clubbing, cyanosis or edema LYMPH NODES: no enlarged lymph no lashell,spleen normal RECTAL EXAM: not examined PSYCH: alert, oriented ORAL CAVITY: normal, unremarkable
--- OUTSIDE RECORDS SUMMARY | 2025-02-20 20:22 | XMS_ITS | Patient Health Record ---
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 Name Role Phone Deshawn Ibrahim Primary Care Provider [phone] Allergies Allergen (clinical drug ingredient) Drug/Non Drug Allergy documented on EMR Reaction Allergy Type Onset Date Status No Known Drug Allergy Unknown Drug Allergy Active Results Component Value Reference Range Notes XR chest 2V Reviewed date:05/25/2024 01:11:40 PM Interpretation: Performing Lab: Notes/Report: [address] [address] XRay Report Signed Patient: Marquez Mckeon MR#: [id number] 201 : 1945 Acct:[id number] Age/Sex: 79 / M ADM Date: 04/22/24 Loc: HO.LAB Attending Dr: Deshawn Ibrahim MD Ordering Physician: Deshawn Ibrahim MD Date of Service: 04/22/24 Procedure(s): XR chest 2V Accession Number(s): [id number] cc: Deshawn Ibrahim MD EXAMINATION: XR CHEST CLINICAL INFORMATION: Cough COMPARISON: Previous dated 08/31/2015 TECHNIQUE: 2 views of the chest were obtained. FINDINGS: Mild basilar atelectasis. The remainder the lung aleman are felt to be grossly clear. There is no failure. No effusion is seen The hilar structures are not felt to be pathologically enlarged. Degenerative change in the thoracic spine. No acute compression injury is seen. Mildly tortuous and ectatic arch and descending aorta XR/XR chest 2V IMPRESSION: Mild bilateral basilar atelectasis Dictated By: Jonathan Nation MD Signed By: <Electronically signed by Jonathan Nation MD in OV> 04/22/241626 DD/ 17 TD/TT: Product Handler: YONNY [address] [address] XRay Report Signed Patient: Hyun Mckeon MR#: [id number] 201 : 1945 Acct:[id number] Age/Sex: 79 / M ADM Date: 04/22/24 Loc: HO.LAB Attending Dr: Deshawn Ibrahim MD Ordering Physician: Deshawn Ibrahim MD Date of Service: 04/22/24 Procedure(s): XR mine st 2V Accession Number(s): [id number] cc: Deshawn Ibrahim MD EXAMINATION: XR CHEST CLINICAL INFORMATION: Cough COMPARISON: Previous dated 08/31/2015 TECHNIQUE: 2 views of the chest were obtained. FINDINGS: Mild basilar atelectasis. The remainder the lung aleman are felt to be grossly clear. There is no failure. No effusion is seen The hilar structures are not felt to be pathologically enlarged. Degenerative change in the thoracic spine. No acute compression injury is seen. Mildly tortuous and ectatic arch and descending aorta XR/XR chest 2V IMPRESSION: Mild bilateral basil ar atelectasis Dictated By: Jonathan Nation MD Signed By: <Electronically signed by Jonathan Nation MD in OV> 04/22/24 1627 DD/ 1418 TD/TT: Product Handler: YONNY Complete Blood Count Auto Di ff Reviewed date:08/21/2024 07:25:34 AM Interpretation: Performing Lab:[facility], [address] [place] [address] Notes/Report: White Blood Count 4.6 4.8-10.8 X10*3/uL Red Blood Count 4.40 4.60-5.80 X10*6/uL Hemoglobin 14.1 14.0-18.0 g/dl Hematocrit 42.3 42.0-52.0 % Mean Corpuscular Volume 96.1 80.0-98.0 fL Mean Corpuscular Hemoglobin 32.0 27.0-33.0 pg Mean Corpuscular HGB Conc 33.3 31.0-36.0 g/dl Red Cell Distribution Width 12.3 11.0-16.0 % Platelet Count 157 160-400 X10*3/uL Mean Platelet Volume 9.1 9.4-12.4 fL Neutrophils Percent Auto 58.4 45-73 % Imm Gran Pct Auto 0.2 0.0-0.4 % Lymphocytes Percent Auto 26.5 20-40 % Monocytes Percent Auto 10.7 2-11 % Eosinophils Percent Auto 3.5 0-4 % Basophils Percent Auto 0.7 0-2 % NRBC Pct Auto 0.0 0.0-0.2 /100WBC Neutrophils Absolute Auto 2.7 2.0-8.3 x10*3/u L Imm Gran Abs Auto 0.01 0.00-0.03 X10*3/uL Lymphocytes Absolute Auto 1.2 1.2-4.9 X10*3/u L Monocytes Absolute Auto 0.5 0.1-1.2 X10*3/uL Eosinophils Absolute Auto 0.2 0.0-0.4 X10*3/u L Basophils Absolute Auto 0.0 0.0-0.2 X10*3/uL NRBC Abs Auto 0.000 0.0-0.012 X10*3/uL Comprehensive [place]. Panel Fa st Reviewed date:08/21/2024 07:25:34 AM Interpretation: Performing Lab:[facility], [address] [place] [phone] Notes/Report: Sodium 140 135-145 mmol/L Potassium 4.4 3.3-5.1 mmol/L Chloride 104 96-108 mmol/L Carbon Dioxide 28 22-29 mmol/L Anion Gap 12 12-20 Blood Urea Nitrogen 15 9-16 mg/dL Creatinine 0.89 0.5-1.4 mg/dL Estimated Glomerular Filt Rate > 60 NOTE: For -Dutch individuals, multiply the result by 1.210. Chronic Kidney Disease: Estimated GFR < 60 mL/min/1.73m2 Severe Kidney Disease: Estimated GFR < 15 mL/min/1.73m2 Glucose Fasting 110 60-99 mg/dL A fasting glucose from 100-125 mg/dl is considered impaired (pre-diabetes). Calcium 9.1 8.4-10.2 mg/dL Bilirubin Total 0.5 0.0-1.0 mg/dL Aspartate Amino Transferase 23 5-37 U/L Alanine Aminotransferase 20 0-40 U/L Total Protein 7.4 6.5-8.0 g/dL Albumin Level 4.1 3.5-5.0 g/dL Alkaline Phosphatase 93 39-117 U/L Lipid Panel Reviewed date:08/21/2024 07:25:35 AM Interpretation: Performing Lab:[facility], [address] [place] [phone] Notes/Report: Triglycerides 116 <150 mg/dL Desirable Triglyceride: less than 150 mg/dL Borderline High Triglyceride 150-199 mg/dL High Triglyceride: 200-499 mg/dL Very High Triglyceride: greater than or equal to 5OO mg/dL Cholesterol 158 <200 mg/dL Desirable Cholesterol: less than 200 mg/dL Borderline High Cholesterol: 200-239 mg/dL High Cholesterol: greater than 239 mg/dL LDL Cholesterol Calculated 97 <100 mg/dL Desirable LDL: less than 100 mg/dL Near Optimal/Above Optimal LDL: 110-129 mg/dL Borderline High LDL: 130-159 mg/dL High LDL: 160-189 mg/dL Very High LDL: greater than or equal to 190 mg/dL HDL Cholesterol 38 >40 mg/dL Desirable HDL: greater than 40 mg/dL Note: This HDL assay may give artificially low results in patients with liver disease. XR cervical spine 4V Reviewed date:10/26/2024 08:53:11 AM Interpretation: Performing Lab: Notes/Report: [address] [address] XRay Report Signed Patient: Marquez Mckeon MR#: [id number] 201 : 1945 Acct:[id number] Age/Sex: 79 / M ADM Date: 09/05/24 Loc: MARVIN Attending Dr: Deshawn Ibrahim MD Ordering Physician: Deshawn Ibrahim MD Date of Service: 09/05/24 Procedure(s): XR cervical spine 4V Accession Number(s): [id number] cc: Deshawn Ibrahim MD EXAMINATION: XR CERVICAL SPINE CLINICAL INFORMATION: Cervicalgia. Chronic pain. COMPARISON: Most recent cervical spine CT dated 01/06/2024. TECHNIQUE: 6 views of the cervical spine, inclusive of flexion and extension views, were obtained. FINDINGS: Normal vertebral body alignment. The cervical lordosis is maintained. No acute fracture or subluxation. No loss of vertebral body height. Loss of intervertebral disc height with endplate degenerative changes at C4 through C7, similar when compared to the prior examination. Mild multilevel bilateral facet arthropathy. Normal atlantoaxial alignment. Unremarkable prevertebral soft tissues. XR/XR cervical spine 4V IMPRESSION: Moderate degenerative disc disease at C4 through C7, similar when compared to the prior examination. Electronically signed by: Vitaliy Chávez MD 09/05/2024 11:34 AM EST Dictated By: Vitaliy Chávez MD Signed By: <Electronically signed by Vitaliy Chávez MD in OV> 09/05/24 1134 DD/ 1015 TD/TT: 09/05/24 1035 Product Handler: [place] [address] XRay Report Signed Patient: Hyun Mckeon MR#: [id number] 201 : 1945 Acct:[id number] Age/Sex: 79 / M ADM Date: 09/05/24 Loc: HO.XIOMY Attending Dr: Deshawn Ibrahim MD Ordering Physician: Deshawn Ibrahim MD Date of Service: 09/05/24 Procedure(s): XR cervical spine 4V Accession Number(s): [id number] cc: Deshawn Ibrahim MD EXAMINATION: XR CERVICAL SPINE CLINICAL INFORMATION: Cervicalgia. Chronic pain. COMPARISON: Most recent cervical spine CT dated 01/06/2024. TECHNIQUE: 6 views of the cervi karla spine, inclusive of flexion and extension views, were obtained. FINDINGS: Normal vertebral bod y alignment. The cervical lordosis is maintained. No acute fracture or subluxation. No loss of vertebral body height. Loss of intervertebr al disc height with endplate degenerative changes at C4 through C7, similar when compared to the prior examination. Mild multilevel bilateral facet arthropathy. Normal atlantoaxial alignment. Unremarkable prevertebral soft tissues. XR/XR cervical spine 4V IMPRESSION: Moderate degenerativ e disc disease at C4 through C7, similar when compared to the prio r examination. Electronically ruth d by: Vitaliy Chávez MD 09/05/2024 11:34 AM EST RP Dictated By: Vitaliy Chávez MD Signed By: <Electronically signed by Vitaliy Chávez MD in OV> 09/05/24 1134 DD/ 1015 TD/TT: 09/05/24 1035 Product Handler: US thyroid Reviewed date:01/25/2025 08:58:45 AM Interpretation: Performing Lab: Notes/Report: [address] [address] Ultrasound Report Signed with Addenda Patient: Marquez Mckeon MR#: [id number] 201 : 1945 Acct:[id number] Age/Sex: 79 / M ADM Date: 10/19/24 Loc: HO.US Attending Dr: Deshawn Ibrahim MD Ordering Physician: Deshawn Ibrahim MD Date of Service: 10/19/24 Procedure(s): US thyroid Accession Number(s): [id number] cc: Deshawn Ibrahim MD ADDENDUM ADDENDUM #1 Results Acknowledgement: Verbal results and recommendation given to Tonya Shaffer MA. Report was forwarded to provider for review. Yanet Hopper, 11/21/2024 4:07 PM Electronically signed by: Jessenia Marie MD 11/22/2024 06:40 AM EST RP Addendum Dictated By: Jessenia Maire MD Addendum Signed By: <Electronically signed by Jessenia Marie MD in OV> 11/22/24 0640 Addendum Cosigned By: DD/ TD/TT: 10/19/24 ADDENDUM #1 Results Acknowledgement: Verbal results and recommendation given to Tonya Shaffer MA. Report was forwarded to provider for review. Yanet Hopper, 11/21/2024 4:07 PM Electronically signed by: Jessenia Marie MD 11/22/2024 06:40 AM [facility] ORIGINAL REPORT EXAMINATION: US THYROID CLINICAL INFORMATION: Thyroid nodule. COMPARISON: None available. TECHNIQUE: Linear transducer grayscale and color Doppler examination with attention to the region of the thyroid. FINDINGS: SIZE: Measurements of the thyroid lobes and nodules are given in sagittal, anteroposterior and transverse dimensions respectively. Right Thyroid Lobe: 4.8 x 1.5 x 1.5 cm, volume 5.5 mL. Parenchyma: The gland echotexture is moderately heterogeneous. Thyroid vascularity is normal. Left Thyroid Lobe: 4.3 x 0.95 x 0.94 cm, volume 2.0 mL. Parenchyma: The gland echotexture is moderately heterogeneous. Thyroid vascularity is normal. Isthmus: 0.49 cm in maximum AP dimension. Estimated total number of nodules greater than or equal to 1 cm: 1. Remarketing Manager nodules are described as follows: 1. Location: Right inferior. Size: 1.4 x 1.3 x 1.5 cm, volume 1.4 mL. Nodule characteristics: Composition: Mixed cystic and solid (1). Echogenicity: Isoechoic (1). Shape: Not taller than wide (0). Margins: Smooth (0). Echogenic Foci: Punctate echogenic foci (3). ACR TI-RADS total points: 5 ACR TI-RADS category: 4 NODES: No lymphadenopathy is seen in the tissue surrounding the thyroid gland. IMPRESSION: 1.5 cm RIGHT inferior TR 4 thyroid nodule meets criteria for biopsy. Fine-needle aspiration recommended. This study was presented to me on November 21, 2024 for interpretation. PSA staff will provide results to referring provider at this time. ACR TI-RADS RECOMMENDATION REFERENCE: Ultrasound-guided fine-needle aspiration, followup ultrasound, no further follow up. * TR1 (0 point) and TR2 (2 points): No FNA or follow up. * TR3 (3 points): FNA if more than or equal to 2.5 cm in maximum dimension, followup ultrasound in 1, 3 and 5 years if 1.5 to 2.4 cm in maximum dimension. * TR4 (4-6 points): FNA if more than or equal to 1.5 cm in maximum dimension, followup ultrasound in 1, 2, 3 and 5 years if 1 to 1.4 cm in maximum dimension. * TR5 (more than or equal to 7 points): FNA if more than or equal to 1 cm in maximum dimension, followup ultrasound every year for 5 years if 0.5 to 0.9 cm in maximum dimension. * TR3, TR4 or TR5 nodules that are below the size threshold for followup receive no follow up. Electronically signed by: Jessenia Marie MD 11/21/2024 05:39 AM EST RP US/US thyroid IMPRESSION: 1.5 cm RIGHT inferior TR 4 thyroid nodule meets criteria for biopsy. Fine-needle aspiration recommended. This study was presented to me on November 21, 2024 for interpretation. PSA staff will provide results to referring provider at this time. ACR TI-RADS RECOMMENDATION REFERENCE: Ultrasound-guided fine-needle aspiration, followup ultrasound, no further follow up. * TR1 (0 point) and TR2 (2 points): No FNA or follow up. * TR3 (3 points): FNA if more than or equal to 2.5 cm in maximum dimension, followup ultrasound in 1, 3 and 5 years if 1.5 to 2.4 cm in maximum dimension. * TR4 (4-6 points): FNA if more than or equal to 1.5 cm in maximum dimension, followup ultrasound in 1, 2, 3 and 5 years if 1 to 1.4 cm in maximum dimension. * TR5 (more than or equal to 7 points): FNA if more than or equal to 1 cm in maximum dimension, followup ultrasound every year for 5 years if 0.5 to 0.9 cm in maximum dimension. * TR3, TR4 or TR5 nodules that are below the size threshold for followup receive no follow up. Electronically signed by: Jessenia Marie MD 11/21/2024 05:39 AM EST RP Dictated By: Jessenia Marie MD Signed By: <Electronically signed by Jessenia Marie MD in OV> 11/22/24 0640 DD/ 1234 TD/TT: 10/19/24 1251 Product Handler: [address] [address] Ultrasound Report Signed with Addenda Patient: Hyun Mckeon MR#: [id number] 201 : 1945 Acct:[id number] Age/Sex: 79 / M ADM Date: 10/19/24 Loc: HO.US Attending Dr: Deshawn Ibrahim MD Ordering Physician: Deshawn Ibrahim MD Date of Service: 10/19/24 Procedure(s): US thyroid Accession Number(s): [id number] cc: Deshawn Ibrahim MD ADDENDUM ADDENDUM #1 Results Acknowledgement: Verbal results and recommendation given to Tonya Shaffer MA. Report was forwarded to provide r for review. Yanet Hopper, 11/21/2024 4:07 PM Electronically ruth d by: Jessenia Marie MD 11/22/2024 06:40 AM EST RP Addendum Dictated By : Jessenia Marie MD Addendum Signed By: <Electronically signed by Jessenia Marie MD in OV> 11/22/24 0640 Addendum Cosigned By: DD/ TD/TT: 10/19/24 ADDENDUM #1 Results Acknowledgement: Verbal results and recommendation given to Tonya Shaffer MA. Report was forwarded to provide r for review. Yanet Hopper, 11/21/2024 4:07 PM Electronically ruth d by: Jessenia Marie MD 11/22/2024 06:40 AM EST RP ORIGINAL REPORT EXAMINATION: US THYROID CLINICAL INFORMATION: Thyroid nodule. COMPARISON: None available. TECHNIQUE: Linear transducer grayscale and color Doppler examination with attention to the reg ion of the thyroid. FINDINGS: SIZE: Measurements o f the thyroid lobes and nodules are given in sagittal, anteroposterior and transverse dimensions respectively. Right Thyroid Lobe: 4.8 x 1.5 x 1.5 cm, volume 5.5 mL. Parenchyma: The glan d echotexture is moderately heterogeneous. Thyroid vascularity is normal. Left Thyroid Lobe: 4 .3 x 0.95 x 0.94 cm, volume 2.0 mL. Parenchyma: The glan d echotexture is moderately heterogeneous. Thyroid vascularity is normal. Isthmus: 0.49 cm in maximum AP dimension. Estimated total numb er of nodules greater than or equal to 1 cm: 1. Remarketing Manager nodul es are described as follows: 1. Location: Right inferior. Size: 1.4 x 1.3 x 1. 5 cm, volume 1.4 mL. Nodule characteristics: Composition: Mixed cystic and solid (1). Echogenicity: Isoech oic (1). Shape: Not taller th an wide (0). Margins: Smooth (0). Echogenic Foci: Punctate echogenic foci (3). ACR TI-RADS total points: 5 ACR TI-RADS category: 4 NODES: No lymphadenopathy is seen in the tissue surrounding the thyroid gland. IMPRESSION: 1.5 cm RIGHT inferio r TR 4 thyroid nodule meets criteria for biopsy. Fine-needle aspirati on recommended. This study was presented to me on November 21, 2024 for interpretation. PSA staff will provi de results to referring provider at this time. ACR TI-RADS RECOMMENDATION REFERENCE: Ultrasound-guided fine-needle aspiration, followup ultrasound, no further follow up. * TR1 (0 point) and TR2 (2 points): No FNA or follow up. * TR3 (3 points): FN A if more than or equal to 2.5 cm in maximum dimension, followup ultrasound in 1, 3 and 5 years if 1.5 to 2.4 cm in maximum dimension. * TR4 (4-6 points): FNA if more than or equal to 1.5 cm in maximum dimension, followup ultrasound in 1, 2, 3 and 5 years if 1 to 1.4 cm in maximum dimension. * TR5 (more than or equal to 7 points): FNA if more than or equal to 1 cm in maximum dimension, followup ultrasound every year for 5 years if 0.5 to 0.9 cm in maximum dimension. * TR3, TR4 or TR5 nodules that are below the size threshold for followup receive no follow up. Electronically ruth d by: Jessenia Marie MD 11/21/2024 05:39 AM [facility] US/US thyroid IMPRESSION: 1.5 cm RIGHT inferio r TR 4 thyroid nodule meets criteria for biopsy. Fine-needle aspirati on recommended. This study was presented to me on November 21, 2024 for interpretation. PSA staff will provi de results to referring provider at this time. ACR TI-RADS RECOMMENDATION REFERENCE: Ultrasound-guided fine-needle aspiration, followup ultrasound, no further follow up. * TR1 (0 point) and TR2 (2 points): No FNA or follow up. * TR3 (3 points): FN A if more than or equal to 2.5 cm in maximum dimension, followup ultrasound in 1, 3 and 5 years if 1.5 to 2.4 cm in maximum dimension. * TR4 (4-6 points): FNA if more than or equal to 1.5 cm in maximum dimension, followup ultrasound in 1, 2, 3 and 5 years if 1 to 1.4 cm in maximum dimension. * TR5 (more than or equal to 7 points): FNA if more than or equal to 1 cm in maximum dimension, followup ultrasound every year for 5 years if 0.5 to 0.9 cm in maximum dimension. * TR3, TR4 or TR5 nodules that are below the size threshold for followup receive no follow up. Electronically ruth d by: Jessenia Marie MD 11/21/2024 05:39 AM [facility] Dictated By: Jessenia Marie MD Signed By: <Electronically signed by Jessenia Marie MD in OV> 11/22/24 0640 DD/ 1234 TD/TT: 10/19/24 1251 Product Handler: TSH reflex Free T4 Reviewed date:01/25/2025 08:58:45 AM Interpretation: Performing Lab:[facility], [address] [place] [phone] Notes/Report: TSH reflex Free T4 1.83 0.32-4.0 uIU/mL Pathology Reviewed date:02/11/2025 04:51:09 AM Interpretation: Performing Lab:[facility], [address] [place] [phone] Notes/Report: --- Name: Marquez Mckeon Age/Sex: 79/M : 1945 Unit#: [id number] Attend Dr: Jeanne Dewey MD Re02/01/25 Status : DEP REF Location: [facility] Disch: --- SPEC : [id number] RECD : 02/01/25 STATUS: NIYAH TORRES NUM: [id number] EMI: 02/01/[address] [facility] [address]: Jeanne Dewey MD ENTERED: 02/02/25 SP TYPE: Cytology OT DR: Deshawn Ibrahim MD ORDERED: Fine Ndl Asp THIS IS A CORRECT ED REPORT 02/02/25 This is a corrected report. Any previous version s are stored internally and are available if necessary. Diagnosis Thyroid, right infer ior nodule, fine needle aspiration biopsy (cytology): -[place] System Classification:? Benign (category 2) -Description:? Few benign follicular cells, rare Hurthle cell change, abundant colloid, and blood. Note: The text and cell block is removed from the diagnosis text . The diagnosis is unchanged. Clinical History Right inferior 1.5 c m thyroid nodule FNA bx Material Received Right inferior 1.5 c m thyroid nodule FNA bx Gross Description Received is 30 cc of light bloody cytolyt fluid from which a ThinPrep slide is prepared. Copies To: Deshawn Ibrahim MD [address] [place] [address], [address] [place] [address] Jeanne Dewey MD [place] [address] [place] [address] [email or web address] CONTINUED ON NEXT PAGE --- Name: Marquez Mckeon Age/Sex: 79/M : 1945 Unit#: [id number] Attend Dr: Jeanne Dewey MD Re02/01/25 Status : DEP REF Location: [facility] Disch: --- SPEC : [id number] RECD : 02/01/[address] STATUS: NIYAH TORRES NUM: [id number] EMI: 02/01/[address] [facility] [address]: Jeanne Dewey MD ENTERED: 02/02/25 41 SP TYPE: Cytology OTHR DR: Deshawn Ibrahim MD ORDERED: Fine Ndl Asp --- Signed (signature on file) Alia Rhoda 02/09/25 0923 --- END OF REPORT Reason For Referral Reason hearing loss check hearing aides Diagnosis 1 Sensorineural hearin g loss (SNHL) of both ears (H90.3) Referral Organization Deshawn Ibrahim III, MD Referring Provider First Name Deshawn Referring Provider Last Name Patrice Referring Provider Speciality Internal [facility] Referred Provider [facility] Referred Provider Specialty Audiologists General Notes Victorina Gray [facility] 08/31 09:26:45 AM > ref/insurance ref/demo/progress note faxed to speech and hearing at [facility] 09/06/2024 11:35:36 AM > called [facility] jewell at [phone] was told patient has appt on 09/16/2024 with them Referral Priority Routine Referral Appointment Date 09/16/2024 Reason evaluate and treat biopsy needed on 1 cm thyroid nodule seen on Ultrasound Diagnosis 1 Thyroid nodule (E04. 1) Referral Organization Deshawn Ibrahim III, MD Referring Provider First Name Deshawn Referring Provider Last Name Patrice [facility] Referred Provider Specialty Endocrinolog y General Notes Victorina Gray [facility] 12/14 04:31:00 PM > ref/demo/progress note/ultrasound faxed to [facility] [phone] press 4 new pt ext, Victorina Gray [facility] 12/22/2024 01:22:21 PM >I called [facility] made pt appt with Dr Groves for Thursday01/23/2025 at 9:00am mailed and called pt with this appt information Referral Priority Routine Referral Appointment Date 01/23/2025 Medications Medication SIG (Take, Route, Frequency, Duration) Notes Start Date End Date Status Multi For Him - as directed Orally Active Aspirin 81 81 MG 1 tablet Orally Once a day Active Atorvastatin Calcium 10 MG Take 1 tablet by mouth once daily Active Immunizations Vaccine Route Administration Date Status Comme nts FLuzone HD PF Unknown 07/04/2022 Administered COVID PFIZER Unknown 01/31/2022 Administered COVID 19 Pfizer Unknown 02/20/2013 Administered COVID PFIZER Unknown 01/01/2021 Administered COVID 19 Pfizer Unknown 07/16/2022 Administered Influenza, quad Unknown 07/30/2016 Administered Influenza, quad Unknown 07/31/2019 Administered Influenza, quad Unknown 07/06/2020 Administered COVID PFIZER Unknown 07/28/2021 Administered PCV13 Unknown 07/30/2016 Administered COVID PFIZER Unknown 12/11/2020 Administered Influenza, quad Unknown 07/30/2023 Administered SHINGRIX Unknown 04/19/2021 Administered SHINGRIX Unknown 06/20/2021 Administered Td (adult) Unknown 09/19/2017 Administered COVID 19 Moderna Unknown 02/20/2023 Administered RSV Adjuvant Unknown 05/24/2024 Administered COVID 19 Pfizer Unknown 07/20/2024 Administered Influenza High Dose Quadrivalent Unknown 07/20/2024 Adm inistered Comirnaty Pfizer COVID-19 12+ Unknown 08/06/2023 Admini stered Fluzone High-Dose (HD-IIV3) Unknown 08/06/2015 Administ ered COVID Pfizer Bivalent Unknown 07/16/2022 Administered Fluzone High-Dose (HD-IIV3) Unknown 07/30/2016 Administ ered Flu-IIv3 Unknown 07/31/2019 Administered COVID PFIZER Unknown 01/01/2021 Administered COVID Moderna Bivalent Unknown 02/20/2023 Administered Flu-IIv3 Unknown 08/06/2018 Administered Fluzone High-Dose (HD-IIV3) Unknown 08/05/2017 Administ ered Social History Tobacco Use: Social History Observation Description Date Details (start date - stop date) Former Smoker NA - NA Sex Assigned At : Social History Observation Description Sex Assigned At Male Tobacco Control (Standard) Question Answer Notes Tobacco use: Former smoker How long has it been since you last smoked? Grea ter than 10 years Additional Findings: Tobacco non-user Ex-cigaret te smoker AUDIT-C (Standard) Question Answer Notes Did you have a drink contain ing alcohol in the past year? Yes How often did you have six o r more drinks on one occasion in the past year? Never (0 point) How many drinks did you have on a typical day when you were drinking in the past year? 1 or 2 drinks (0 point) How often did you have a dri nk containing alcohol in the past year? Never (0 point) Points 0 Interpretation Negative Problems Problem Type SNOMED Code ICD Code Onset Dates Problem Status W/U Status Risk Notes Problem 6738932 Former smoker (Z87.891) Active confirmed He is highly motivated not to smoke. He has a plan to prevent relapse in times of stress and illness. Problem Arthritis (8457465) Arthritis (M19.90) Active confirmed He has had the right knee replaced. The left is mildly symptomatic and does not require surgery at this time. Problem 27913758 Other chronic pain (G89.29) Active confirmed Problem Benign prostatic hyperplasia (924560415) BPH (benign prostatic hyperplasia) (N40.0) Active confirmed He has been rising one or 2 times a night to urinate. This depends upon fluid intake. We have discussed lifestyle modifications that may to reduce nocturia. Problem 10576004 Essential hypertension (I10) Active confirmed His blood pressure is currently stable. No change in his regimen was made today. Problem 726013308 Peripheral vascular disease (I73.9) Active confirmed His claudicatio n is minor and stable. No change in his regimen as necessary today. He will resume taking 81 mg of aspirin daily on February 25, 2024 Problem Thyroid nodule (933861325) Thyroid nodule (E04.1) Active confirmed The right lower pole nodule was recently biopsied February 01, 2025. The significance of rare Hurthle cell changes is unclear to me and I will speak with pathology. No overt thyroid cancer was detected. Problem Hyperlipidaemia (23370436) Hyperlipemia (E78.5) Active confirmed Comprehensive blood work with a fasting lipid profile will be ordered periodically. No change in his regimen was made today. Problem 382224079 Malignant neoplasm of colon, unspecified part of colon (C18.9) Active confirmed There is no sig n of recurrent colon cancer on today's examination. Surveillance will continue. There have been no further sessions of cancer in his family. Since his last visit. Problem 451151027 Left inguinal hernia (K40.90) Active confirmed He has bilatera l hernias. The left is larger in the right is more painful. He is wearing a truss to controls. Both of them. He does not wish to have them repaired. We had a long discussion about the possibilities of incarceration. He now has a clear idea of when he should go to the emergency room for pain at the hernias. Problem 80501384 Neck pain on left side (M54.2) Active confirmed This discomfort is mild and unchanged. He is not troubled by it. I have recommended heat rest and ibuprofen. Problem 606238908 Age-related nuclear cataract of both eyes (H25.13) Active confirmed His cataracts have been removed and he has no intraocular lenses. Problem 09486814 Acute non-recurrent maxillary sinusitis (J01.00) Active confirmed He was given a prescription for amoxicillin clavulanate and a follow-up office visit. He was instructed to call me at once if anything worsens. He is currently able to eat and drink and perform the activities of daily living without impairment. Problem 687766435 Sensorineural hearing loss (SNHL) of both ears (H90.3) Active confirmed The symptom is mild and he does not wish further referral to ear nose and throat. The appearance of his tympanic membranes was normal. Problem 637125382 Bunion, left foot (M21.612) Active confirmed His symptoms are minimal. No change in his regimen or shear type is necessary today. 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 He is following up with the manager zone next week. Vital Signs Heart Rate 75 /min 02/15/2025 Temperature 97.3 degrees Fahrenheit 02/15/2025 Blood pressure diastolic 58 mm Hg 02/15/2025 Height 74 in 02/15/2025 Blood pressure systolic 114 mm Hg 02/15/2025 Weight 192 lbs 02/15/2025 BMI 24.65 kg/m2 02/15/2025 Encounters Encounter Location Date Provider Diagnosis Deshawn Ibrahim III, MD [address] [place] [address] [address] [place], [place] [id number] 02/26/2024 Deshawn Ibrahim Essential hypertensi on I10 ; Former smoker Z87.891 ; Sensorineural hearing loss (SNHL) of both ears H90.3 ; BPH (benign prostatic hyperplasia) N40.0 ; Right retinal detachment H33.21 and shoulder, left, sequela S43.005S Deshawn Ibrahim III, MD [address] [place] [address] [place] [id number] 04/04/2024 Deshawn Ibrahim Essential hypertensi on I10 ; Hyperlipemia E78.5 ; BPH (benign prostatic hyperplasia) N40.0 ; Peripheral vascular disease I73.9 and Pharyngitis, unspecified etiology J02.9 Deshawn Ibrahim III, MD [address] [place] [address] [place] [id number] 04/22/2024 Deshawn Ibrahim Essential hypertensi on I10 ; Hyperlipemia E78.5 ; Cough, unspecified R05.9 ; Former smoker Z87.891 ; Sensorineural hearing loss (SNHL) of both ears H90.3 ; Malignant neoplasm of colon, unspecified part of colon C18.9 ; BPH (benign prostatic hyperplasia) N40.0 ; Bunion, left foot M21.612 and Left inguinal hernia K40.90 Deshawn Ibrahim III, MD [address] [place] [address] [place] [id number] 08/22/2024 Deshawn Ibrahim Essential hypertensi on I10 ; Hyperlipemia E78.5 ; BPH (benign prostatic hyperplasia) N40.0 ; Left inguinal hernia K40.90 ; Former smoker Z87.891 ; Sensorineural hearing loss (SNHL) of both ears H90.3 ; Malignant neoplasm of colon, unspecified part of colon C18.9 and Neck pain on left side M54.2 Deshawn Ibrahim III, MD [address] [place] [address] [place] [id number] 10/06/2024 Deshawn Ibrahim Essential hypertensi on I10 ; Neck pain on left side M54.2 ; Former smoker Z87.891 ; Sensorineural hearing loss (SNHL) of both ears H90.3 ; BPH (benign prostatic hyperplasia) N40.0 ; Malignant neoplasm of colon, unspecified part of colon C18.9 ; Left inguinal hernia K40.90 ; Peripheral vascular disease I73.9 ; Benign prostatic hyperplasia with lower urinary tract symptoms N40.1 and shoulder, left, sequela S43.005S Deshawn Ibrahim III, MD [address] [place] [address] [place] [id number] 11/09/2024 Deshawn Ibrahim Essential hypertensi on I10 ; Acute non-recurrent maxillary sinusitis J01.00 ; Hyperlipemia E78.5 ; BPH (benign prostatic hyperplasia) N40.0 ; Left inguinal hernia K40.90 ; Bunion, left foot M21.612 ; Sensorineural hearing loss (SNHL) of both ears H90.3 ; Former smoker Z87.891 and Malignant neoplasm of colon, unspecified part of colon C18.9 Deshawn Ibrahim III, MD [address] [place] [address] [place] [id number] 02/15/2025 Deshawn Ibrahim Essential hypertensi on I10 ; Thyroid nodule E04.1 ; Hyperlipemia E78.5 ; BPH (benign prostatic hyperplasia) N40.0 ; Left inguinal hernia K40.90 ; Bunion, left foot M21.612 ; Former smoker Z87.891 ; Sensorineural hearing loss (SNHL) of both ears H90.3 ; Malignant neoplasm of colon, unspecified part of colon C18.9 and Peripheral vascular disease I73.9 Deshawn Ibrahim III, MD [address] [place] [address] [place] [id number] 04/04/2024 Deshawn Ibrahim III, MD [address] [place] [address] [place] [id number] 04/05/2024 Deshawn Ibrahim III, MD [address] [place] [address] [place] [id number] 08/24/2024 Deshawn Ibrahim III, MD [address] [place] [address] [place] [id number] 09/02/2024 Deshawn Ibrahim Cervicalgia M54.2 an d Other chronic pain G89.29 Deshawn Ibrahim III, MD [address] [place] [address] [place] [id number] 11/14/2024 Deshawn Ibrahim III, MD [address] [place] [address] [place] [id number] 11/17/2024 Deshawn Ibrahim III, MD [address] [place] [address] [address] [place], [place] [address] 11/28/2024 Deshawn Ibrahim III, MD [address] [place] [address] [address] [place] [address] 12/26/2024 Deshawn Ibrahim Assessments Encounter Date Diagnosis (ICD Code) Assessment Notes Treatment Notes Treatment Clinical Notes 02/26/2024 Former smoker (ICD-10 - Z87.891) He is highly motivated not to smoke. He has a plan to prevent relapse in times of stress and illness. 02/26/2024 Essential hypertension (ICD-10 - I10) His blood pressure wss 136/70 on the last visit and no change in his regimen as necessary. 04/04/2024 Essential hypertension (ICD-10 - I10) His blood pressure wss 136/70 on the last visit and no change in his regimen as necessary. 04/04/2024 Hyperlipemia (ICD-10 - E78.5) Comprehensive blood work including a fasting lipid profile will be done in the next few days. He has been compliant with his medication. 04/22/2024 Essential hypertension (ICD-10 - I10) His blood pressure is 121/66 and no change in his regimen as necessary. 04/22/2024 Hyperlipemia (ICD-10 - E78.5) His lipids are currently stable and no change in his regimen was made. 08/22/2024 Essential hypertension (ICD-10 - I10) His blood pressure is 136/69 and no change in his regimen as necessary. 08/22/2024 Hyperlipemia (ICD-10 - E78.5) His lipids are currently stable and no change in his regimen was made. 10/06/2024 Essential hypertension (ICD-10 - I10) His blood pressure is 138/64 and no change in his regimen as necessary. 10/06/2024 Neck pain on left side (ICD-10 - M54.2) This discomfort is mild and unchanged. He is not troubled by it. I have recommended heat rest and ibuprofen. 11/09/2024 Essential hypertension (ICD-10 - I10) His blood pressure was 136/69 and no change in his regimen as necessary. 11/09/2024 Acute non-recurrent maxillary sinusitis (ICD-10 - J01.00) He was given a prescription for amoxicillin clavulanate and a follow-up office visit. He was instructed to call me at once if anything worsens. He is currently able to eat and drink and perform the activities of daily living without impairment. 02/15/2025 Essential hypertension (ICD-10 - I10) His blood pressure is currently stable. No change in his regimen was made today. 02/15/2025 Thyroid nodule (ICD-10 - E04.1) The right lower pole nodule was recently biopsied February 01, 2025. The significance of rare Hurthle cell changes is unclear to me and I will speak with pathology. No overt thyroid cancer was detected. 09/02/2024 Cervicalgia (ICD-10 - M54.2) 02/26/2024 Sensorineural hearing loss (SNHL) of both ears (ICD-10 - H90.3) The symptom is mild and he does not wish further referral to ear nose and throat. The appearance of his tympanic membranes was normal. 04/04/2024 BPH (benign prostatic hyperplasia) (ICD-10 - N40.0) We have discussed lifestyle modification as way of reducing nocturia. He does not wish to take no medications at this time. I asked him to notify me of his nocturia worsens. 04/22/2024 Cough, unspecified (ICD-10 - R05.9) He is an ex-smoker was developed a chronic cough. A chest x-ray has been ordered. 08/22/2024 BPH (benign prostatic hyperplasia) (ICD-10 - N40.0) We have discussed lifestyle modification as way of reducing nocturia. He does not wish to take no medications at this time. I asked him to notify me of his nocturia worsens. 10/06/2024 Former smoker (ICD-10 - Z87.891) He is highly motivated not to smoke. He has a plan to prevent relapse in times of stress and illness. 11/09/2024 Hyperlipemia (ICD-10 - E78.5) His lipids are currently stable and no change in his regimen was made. 02/15/2025 Hyperlipemia (ICD-10 - E78.5) Comprehensive blood work with a fasting lipid profile will be ordered periodically. No change in his regimen was made today. 09/02/2024 Other chronic pain (ICD-10 - G89.29) 02/26/2024 BPH (benign prostatic hyperplasia) (ICD-10 - N40.0) We have discussed lifestyle modification as way of reducing nocturia. He does not wish to take no medications at this time. I asked him to notify me of his nocturia worsens. 04/04/2024 Peripheral vascular disease (ICD-10 - I73.9) His claudication is minor and stable. No change in his regimen as necessary today. He will resume taking 81 mg of aspirin daily on February 25, 2024 04/22/2024 Former smoker (ICD-10 - Z87.891) He is highly motivated not to smoke. He has a plan to prevent relapse in times of stress and illness. 08/22/2024 Left inguinal hernia (ICD-10 - K40.90) He [...] emergency room for pain at the hernias. 10/06/2024 Sensorineural hearing loss (SNHL) of both ears (ICD-10 - H90.3) The symptom is mild and he does not wish further referral to ear nose and throat. The appearance of his tympanic membranes was normal. 11/09/2024 BPH (benign prostatic hyperplasia) (ICD-10 - N40.0) We have discussed lifestyle modification as way of reducing nocturia. He does not wish to take no medications at this time. I asked him to notify me of his nocturia worsens. 02/15/2025 BPH (benign prostatic hyperplasia) (ICD-10 - N40.0) He has been rising one or 2 times a night to urinate. This depends upon fluid intake. We have discussed lifestyle modifications that may to reduce nocturia. 02/26/2024 Right retinal detachment (ICD-10 - H33.21) He has had surgery and now has a bubble placed in the right eye which he finds slightly uncomfortable. He is following up with the manager zone next week. 04/04/2024 Pharyngitis, unspecified etiology (ICD-10 - J02.9) He will take the amoxicillin and telephone daily until he is well. 04/22/2024 Sensorineural hearing loss (SNHL) of both ears (ICD-10 - H90.3) The symptom is mild and he does not wish further referral to ear nose and throat. The appearance of his tympanic membranes was normal. 08/22/2024 Former smoker (ICD-10 - Z87.891) He is highly motivated not to smoke. He has a plan to prevent relapse in times of stress and illness. 10/06/2024 BPH (benign prostatic hyperplasia) (ICD-10 - N40.0) We have discussed lifestyle modification as way of reducing nocturia. He does not wish to take no medications at this time. I asked him to notify me of his nocturia worsens. 11/09/2024 Left inguinal hernia (ICD-10 - K40.90) He [...] room for pain at the hernias. 02/15/2025 Left inguinal hernia (ICD-10 - K40.90) [...] emergency room for pain at the hernias. 02/26/2024 shoulder, left, sequela (ICD-10 - S43.005S) The pain is slightly better. He has been to the orthopedist and has a follow-up appointment in the near future. 04/22/2024 Malignant neoplasm of colon, unspecified part of colon (ICD-10 - C18.9) There is no sign of recurrent colon cancer on today's examination. Surveillance will continue. There have been no further sessions of cancer in his family. Since his last visit. 08/22/2024 Sensorineural hearing loss (SNHL) of both ears (ICD-10 - H90.3) The symptom is mild and he does not wish further referral to ear nose and throat. The appearance of his tympanic membranes was normal. 10/06/2024 Malignant neoplasm of colon, unspecified part of colon (ICD-10 - C18.9) There is no sign of recurrent colon cancer on today's examination. Surveillance will continue. There have been no further sessions of cancer in his family. Since his last visit. 11/09/2024 Bunion, left foot (ICD-10 - M21.612) His symptoms are minimal. No change in his regimen or shear type is necessary today. 02/15/2025 Bunion, left foot (ICD-10 - M21.612) His symptoms are minimal. No change in his regimen or shear type is necessary today. 04/22/2024 BPH (benign prostatic hyperplasia) (ICD-10 - N40.0) We have discussed lifestyle modification as way of reducing nocturia. He does not wish to take no medications at this time. I asked him to notify me of his nocturia worsens. 08/22/2024 Malignant neoplasm of colon, unspecified part of colon (ICD-10 - C18.9) There is no sign of recurrent colon cancer on today's examination. Surveillance will continue. There have been no further sessions of cancer in his family. Since his last visit. 10/06/2024 Left inguinal hernia (ICD-10 - K40.90) He [...] emergency room for pain at the hernias. 11/09/2024 Sensorineural hearing loss (SNHL) of both ears (ICD-10 - H90.3) The symptom is mild and he does not wish further referral to ear nose and throat. The appearance of his tympanic membranes was normal. 02/15/2025 Former smoker (ICD-10 - Z87.891) He is highly motivated not to smoke. He has a plan to prevent relapse in times of stress and illness. 04/22/2024 Bunion, left foot (ICD-10 - M21.612) His symptoms are minimal. No change in his regimen or shear type is necessary today. 08/22/2024 Neck pain on left side (ICD-10 - M54.2) This is likely a flare of arthritis. If it does not resolve with conservative measures of heat and rest and ibuprofen and images will be done. 10/06/2024 Peripheral vascular disease (ICD-10 - I73.9) His claudication is minor and stable. No change in his regimen as necessary today. He will resume taking 81 mg of aspirin daily on February 25, 2024 11/09/2024 Former smoker (ICD-10 - Z87.891) He is highly motivated not to smoke. He has a plan to prevent relapse in times of stress and illness. 02/15/2025 Sensorineural hearing loss (SNHL) of both ears (ICD-10 - H90.3) The symptom is mild and he does not wish further referral to ear nose and throat. The appearance of his tympanic membranes was normal. 04/22/2024 Left inguinal hernia (ICD-10 - K40.90) He [...] emergency room for pain at the hernias. 10/06/2024 Benign prostatic hyperplasia with lower urinary tract symptoms (ICD-10 - N40.1) He experiences nocturia once or twice a night. He does not wish medication for this. We discussed lifestyle modification at length. 11/09/2024 Malignant neoplasm of colon, unspecified part of colon (ICD-10 - C18.9) There is no sign of recurrent colon cancer on today's examination. Surveillance will continue. There have been no further sessions of cancer in his family. Since his last visit. 02/15/2025 Malignant neoplasm of colon, unspecified part of colon (ICD-10 - C18.9) There is no sign of recurrent colon cancer on today's examination. Surveillance will continue. There have been no further sessions of cancer in his family. Since his last visit. 10/06/2024 shoulder, left, sequela (ICD-10 - S43.005S) The pain is slightly better. He has been to the orthopedist and has a follow-up appointment in the near future. 02/15/2025 Peripheral vascular disease (ICD-10 - I73.9) His claudication is minor and stable. No change in his regimen as necessary today. He will resume taking 81 mg of aspirin daily on February 25, 2024 Plan Of Treatment Pending Test Test Name Order Date PROFILE, FASTING (COMPREHENSIVE METABOLI C) 01/14/2022 PROFILE, FASTING (COMPREHENSIVE METABOLI C) 07/13/2023 PROFILE, FASTING (COMPREHENSIVE METABOLI C) 12/20/2020 PROFILE, FASTING (COMPREHENSIVE METABOLI C) 09/16/2021 PROFILE, FASTING (COMPREHENSIVE METABOLI C) 12/15/2022 PROFILE, FASTING (COMPREHENSIVE METABOLI C) 02/15/2025 PROFILE, FASTING (COMPREHENSIVE METABOLI C) 10/02/2023 PROFILE, FASTING (COMPREHENSIVE METABOLI C) 06/12/2021 PROFILE, FASTING (COMPREHENSIVE METABOLI C) 07/15/2022 PROFILE, FASTING (COMPREHENSIVE METABOLI C) 04/22/2024 PROFILE, RANDOM (COMPREHENSIVE METABOLIC ) 02/19/2024 LIPID PANEL 04/16/2021 LIPID PANEL 01/14/2022 LIPID PANEL 07/13/2023 LIPID PANEL 12/20/2020 LIPID PANEL 09/16/2021 LIPID PANEL 12/15/2022 PSA, TOTAL 01/14/2022 PSA, TOTAL 02/15/2025 PSA, TOTAL 12/20/2020 PSA, TOTAL 09/16/2021 PSA, TOTAL 12/15/2022 PSA, TOTAL 10/02/2023 CBC w DIFF 04/16/2021 CBC w DIFF 02/19/2024 CBC w DIFF 07/13/2023 CBC w DIFF 01/14/2022 CBC w DIFF 02/15/2025 CBC w DIFF 12/20/2020 CBC w DIFF 09/16/2021 CBC w DIFF 06/12/2021 CBC w DIFF 12/15/2022 CBC w DIFF 07/15/2022 VITAMIN D 25-OH TOTAL 12/20/2020 CBC WITH AUTO DIFF 10/02/2023 CBC WITH AUTO DIFF 04/22/2024 Ferritin 04/16/2021 Lipid Panel 06/12/2021 Lipid Panel 07/15/2022 Lipid Panel 04/22/2024 Lipid Panel 02/15/2025 ECG 12 lead EKG 02/19/2024 Next Appt Details Provider Name:Deshawn Ibrahim, 05/17/2025 10:30:00 AM, [address] [facility] [address], [place], [address], Provider Name:Deshawn Ibrahim, 10/09/2025 10:00:00 AM, [address] [facility] [address], [place], [address], Insurance Providers Payer Name Payer Address Payer Phone Subscriber Number Group Number Insured Name Patient Relationship to Insured Coverage Start Date Coverage End Date [facility] PPO [address] [address] [place] [address] [id number] Linda Marquez Self - patient is the insured MEDICARE NGS [address] [place] [phone] [id number] Darci Mckeonl Self - patient is the insured Medical (General) History Medical History History ICD Code Bunion M21.619 Hyperlipemia E78.5 right inguinal hernia bilateral cataracts osteoarthritis former smoker, 1989 pseudophakia hearing loss hemorrhoid osteoarthritis right knee arthroplasty 2017 colon cancer 1994 microscopic hematuria 2009 negative cyst oscopy hyperlipidemia bilateral cataract, intraocular lenses hypertension benign prostatic hypertrophy bunion left fifth toe Partial right retinal detachment January 012022 occlusion right superficial femoral artery with good collaterals Surgical History Surgery Date(Month/Year) No history bilateral cataract surgery bilateral knee surgery Hospitalization History Reason Date(Month/Year) No history
--- OUTSIDE RECORDS SUMMARY | 2025-02-20 20:22 | XMS_ITS ---
Author Organization Deshawn Ibrahim III, MD Address [address] [place] [address] Care Team Providers Care Machine I Trimmer Name Role Phone Deshawn Ibrahim Primary Care Provider [phone] REASON FOR VISIT Message Social History Sex Assigned At : Social History Observation Description Sex Assigned At Male Encounters Encounter Location Date Provider Diagnosis Deshawn Ibrahim III, MD [address] [place] [address] [place] [address] 12/26/2024 Deshawn Ibrahim Plan Of Treatment Next Appt Details Provider Name:Deshawn Ibrahim, 05/17/2025 10:30:00 AM, [address] [place] [address] [place], [address], Provider Name:Deshawn Ibrahim, 10/09/2025 10:00:00 AM, [address] [place] [address] [place], [address], Progress Notes * Marquez CHOI ADOB:[birth year] (79 yo M)Acc No.[id number]:12/26/2024 Patient:?JIMBO Marquez Jerzy :1945???Age:79 Y???Sex:Male Address: [place], [address] * true * Date:? Generated for Printi ng/Faxing/eTransmitting on:?02/20/2025 08:22 PM EDT
--- OUTSIDE RECORDS SUMMARY | 2025-02-20 20:22 | XMS_ITS ---
Author Organization Deshawn Ibrahim III, MD Address [address] [place] [address] [place] [address] Care Team Providers Care Machine Bander And Cellophaner Name Role Phone Deshawn Ibrahim Primary Care Provider Reason For Referral Reason evaluate and treat biopsy needed on 1 cm thyroid nodule seen on Ultrasound Diagnosis 1 Thyroid nodule (E04. 1) Referral Organization Deshawn Ibrahim III, MD Referring Provider First Name Deshawn Referring Provider Last Name Patrice Referring Provider Speciality Internal M edicine Referred Provider [facility] Referred Provider Specialty Endocrinolog y General Notes Marina Victorina [facility] 12/14 04:31:00 PM > ref/demo/progress note/ultrasound faxed to [facility] [phone] press 4 new pt ext, Marina Victorina [facility] 12/22/2024 01:22:21 PM >I called [facility] made pt appt with Dr Groves for Thursday01/23/2025 at 9:00am mailed and called pt with this appt information Referral Priority Routine Referral Appointment Date 01/23/2025 REASON FOR VISIT Test results/andres Dr Groves Social History Sex Assigned At : Social History Observation Description Sex Assigned At Male Encounters Encounter Location Date Provider Diagnosis Deshawn Ibrahim III, MD [address] [place] [address] [place] [address] 11/28/2024 Deshawn Ibrahim Plan Of Treatment Referrals Referral Date Details 12/14/2024 12/14/2024, evaluate and treat biopsy needed on 1 cm thyroid nodule seen on Ultrasound, [facility] Next Appt Details Provider Name:Deshawn Parrrne, 05/17/2025 10:30:00 AM, [address] [facility] [address], [place], [address], Provider Name:Deshawn Prarrne, 10/09/2025 10:00:00 AM, [address] [place] [address] [address], [place], [address], Progress Notes * JIMBO Marquez ADOB:[birth year] (79 yo M)Acc No.[id number]:11/28/2024 Patient:?Marquez CHOI A :1945???Age:79 Y???Sex:Male Address:[address] [place] [address] [place], [address] Subjective: * Chief Complaints: * ???Test results/andres Dr Groves * Medical History:? * Surgical History:? * Hospitalization/Major Diagno stic Procedure:? * Medications:? Objective: * Vitals:? * Physical Examination:? Assessment: Plan: * Treatment: * Procedure Codes:? * true * Date:? Generated for Marcy garcia/Kosta/eTrajeevsmitting on:?02/20/2025 08:22 PM EDT Consultation Request Notes Referral Date Referring Provider Referred Provider Not es 12/14/2024 Deshawn Ibrahim [facility] evaluate and treat biopsy needed on 1 cm thyroid nodule seen on Ultrasound
[2025-02-20 20:24] LABS: Alanine Aminotransferase 22 U/L (0-40); Alkaline Phosphatase 91 U/L (39-117); Anion Gap 14 (12-20); Aspartate Amino Transferase 33 U/L (5-37); Bilirubin Total 0.4 mg/dL (0.0-1.0); Blood Urea Nitrogen 15 mg/dL (9-16); Calcium 8.8 mg/dL (8.4-10.2); Carbon Dioxide 26 mmol/L (22-29); Chloride 106 mmol/L (96-108); Creatinine Clr Calc Pharmacy 71.3; Estimated Glomerular Filt Rate > 60; Glucose Random 149 mg/dL (60-115); Lipase 12 U/L (8-78); Sodium 142 mmol/L (135-145); Total Protein 7.2 g/dL (6.5-8.0)
[2025-02-20 20:57] LABS: Appearance Urine Clear; Color Urine Yellow; Glucose Urine UA Negative (Negative); Leukocyte Esterase Urine Negative (Negative); Nitrite Urine Negative (Negative); Specific Gravity - Urine 1.015 (1.005-1.025); UMIC TRIGGER UACC YES; Urine Blood Small (1+) (Negative); Urine Ketones Negative (Negative); Urine Protein Negative (Neg-Trace)
[2025-02-20 21:16] VITALS: BP 189/82; PULSE 69; RESP 16; TEMP 36.6; O2SAT 99
[2025-02-20 21:34] LABS: Bacteria Urine None Seen (None Seen); Hyaline Casts Urine 0-2 /LPF (0-2); Squamous Epithelial Cell Urine 0-2 /HPF (0-2); WBC Urine 0-5 /HPF (0-5)
[2025-02-20 22:00] VITALS: BP 124/63; PULSE 71; RESP 16; TEMP 36.4; O2SAT 95
[2025-02-20] MEDS: 0.9 % Sodium Chloride 1,000 ML 999 ML IV (22:24)
[2025-02-20 23:10] LABS: Troponin-I High Sensitivity 11.3 ng/L (<3.5-35.0)
[2025-02-20] MEDS: iohexoL 350 MG/ML 100 ML INFUS..BTL 80 ML IV (23:48)
[2025-02-21 01:18] VITALS: BP 138/73; PULSE 66; RESP 16; TEMP 36.3; O2SAT 95
== END 2025-02-21 01:19 | disposition home or self-care (01) ==
PROVIDERS: Nurse Practitioner Family; Registered Nurse Emergency; Emergency Provider Emergency Medicine Emergency Medical Services; PCP Internal Medicine Medical Oncology
DX: R10.2 Pelvic and perineal pain (principal); R11.0 Nausea; R94.31 Abnormal electrocardiogram [ECG] [EKG]; I10 Essential (primary) hypertension; Z87.891 Personal history of nicotine dependence; Z79.899 Other long term (current) drug therapy
CPT/HCPCS: 36415; 74174; 80053; 81001; 81003; 83690; 84484; 85025; 93005; 96360; 96361; 99284; 99285; Q9967

== ENCOUNTER → 2025-02-20 19:44 | Outpatient (BNV) | payer OTHER, SELFPAY | PROVIDERS: Emergency Provider Emergency Medicine Emergency Medical Services; PCP Internal Medicine Medical Oncology; Visit Provider Internal Medicine | DX: R94.31 Abnormal electrocardiogram [ECG] [EKG] (principal); R10.9 Unspecified abdominal pain | CPT/HCPCS: 93010 ==

== ENCOUNTER → 2025-02-20 22:15 | Outpatient (BNV) | payer OTHER, SELFPAY | PROVIDERS: Emergency Provider Emergency Medicine Emergency Medical Services; PCP Internal Medicine Medical Oncology; Visit Provider Radiology Diagnostic Radiology | DX: R10.9 Unspecified abdominal pain (principal) | CPT/HCPCS: 74174 ==

== ENCOUNTER 2025-02-22 13:36 | Outpatient (AMB) | payer OTHER, SELFPAY ==
--- NOTE | 2025-02-22 13:38 | A.OFFVIS_ITS ---
Vital Signs 3 02/22/25 13:39 Height 6 ft 3 in Weight 191 lb 12.835 oz BMI 24.0 BP 118/48 L Blood Pressure Location Lt brachial Position Sitting Pulse 76 Pulse Source Pulse Oximeter Pulse Oximetry (%) 97 Oxygen Delivery Method Room Air Intake Visit Reasons: Biopsy f/u Intake Note: Patient present today for biopsy results. 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 HPI In January 2024, had a cervical spine CT which showed a 1.5 cm right inferior lobe thyroid nodule. 10/19/2024: Ultrasound of the thyroid , I reviewed the images myself, which showed a right inferior 1.4 X 1.3 X 1.5 cm mixed cystic solid, isoechoic nodule, with possibly some punctate echogenic foci, versus colloid, given the echogenic foci, this is a TR 4 category nodule, meeting criteria for FNA. No prior history of thyroid problems or medication. Patient currently denies heat or cold intolerance, diarrhea or constipation, hair loss, palpitation, anxiety, weight changes, mood changes, low energy, changes in appearance of eyes or vision changes, tremors, increased diaphoresis or dry skin. ? Patient denies any difficulty swallowing, pain on swallowing or voice changes or difficulty breathing. Patient denies any history of childhood neck radiation. Denies having ever used lithium, amiodarone or biotin supplements. Patient denies any family history of thyroid cancer or thyroid disease. No TFTs in the chart. Interval history 02/01/2025: Underwent FNA of the right lower pole 1.5 cm nodule which came back as benign, [place] category 2. Physical exam General: sitting comfortably in no acute distress HEENT: normocephalic/atraumatic, Neck: supple, palpable 1 cm right-sided nodule Cardiac: normal heart sounds Pulm: normal breath sounds B/L, no added breath sounds Abd: not distended, no tenderness Extremities: no edema, no signs of myxedema Laboratory Tests 01/23/25 10:11 TSH 1.83 US THYROID 10/19/24 CLINICAL INFORMATION: Thyroid nodule. COMPARISON: None available. TECHNIQUE: Linear transducer grayscale and color Doppler examination with attention to the region of the thyroid. FINDINGS: SIZE: Measurements of the thyroid lobes and nodules are given in sagittal, anteroposterior and transverse dimensions respectively. Right Thyroid Lobe: 4.8 x 1.5 x 1.5 cm, volume 5.5 mL. Parenchyma: The gland echotexture is moderately heterogeneous. Thyroid vascularity is normal. Left Thyroid Lobe: 4.3 x 0.95 x 0.94 cm, volume 2.0 mL. Parenchyma: The gland echotexture is moderately heterogeneous. Thyroid vascularity is normal. Isthmus: 0.49 cm in maximum AP dimension. Estimated total number of nodules greater than or equal to 1 cm: 1. Health Specialist nodules are described as follows: 1. Location: Right inferior. Size: 1.4 x 1.3 x 1.5 cm, volume 1.4 mL. Nodule characteristics: Composition: Mixed cystic and solid (1). Echogenicity: Isoechoic (1). Shape: Not taller than wide (0). Margins: Smooth (0). Echogenic Foci: Punctate echogenic foci (3). ACR TI-RADS total points: 5 ACR TI-RADS category: 4 NODES: No lymphadenopathy is seen in the tissue surrounding the thyroid gland. IMPRESSION: 1.5 cm RIGHT inferior TR 4 thyroid nodule meets criteria for biopsy. Fine-needle aspiration recommended. This study was presented to me on November 21, 2024 for interpretation. [facility] staff will provide results to referring provider at this time. [facility] Medical History Right thyroid nodule Left retinal detachment S/P angiogram of extremity (04/29/23) Peripheral arterial disease Social History Alcohol intake: never Patient Tobacco Use Status: Former Tobacco user Physical Exam Vital Signs: Last Vital Signs Pulse 76 02/22/25 13:39 BP 118/48 L 02/22/25 13:39 Pulse Ox 97 02/22/25 13:39 Oxygen Delivery Method Room Air 02/22/25 13:39 BMI result Body Mass Index 24.0 Assessment & Plan Assessment & Plan (1) Right thyroid nodule: Code(s): E04.1 - Nontoxic single thyroid nodule Category: Medical Plan: 79-year-old male with no family history of thyroid cancer with no personal history of head or neck radiation who was diagnosed with a right sided thyroid nodule with ultrasound of the thyroid done in 10/19/2024: , I reviewed the images myself, which showed a right inferior 1.4 X 1.3 X 1.5 cm mixed cystic solid, isoechoic nodule, with possibly some punctate echogenic foci, versus colloid, given the echogenic foci, this is a TR 4 category nodule, meeting criteria for FNA. No recent TFTs in the chart. He does not have any compressive symptoms. 02/01/2025: Underwent FNA of the right lower pole 1.5 cm nodule which came back as benign, [place] category 2. Normal thyroid function tests from December 2024. I explained to the patient benign results me less than 3% chance of malignancy. At this point we will plan to repeat an ultrasound in 1 year. Plan: -ordered thyroid ultrasound to be done in 1 year in December 2025 prior to follow up in January 2026 -ordered TSH, reflex free T4 to be done prior to follow up in 1 year Plan See above Orders: Orders 2 US thyroid 01/15/26 E04.1 - Nontoxic single thyroid nodule TSH reflex Free T4 01/15/26 E04.1 - Nontoxic single thyroid nodule Patient Instructions: Do blood work in December 2025 Do ultrasound of thyroid in December 2025 , someone will give you a call to schedule this Follow up in January 2026 to discuss results Coding Level of Care Code Est Pt Level 3 (83031) Diagnoses Right thyroid nodule E04.1
[2025-02-22 13:39] VITALS: BP 118/48; PULSE 76; O2SAT 97; BMI 24.0
--- OUTSIDE RECORDS SUMMARY | 2025-02-22 16:15 | XMS_ITS | Encounter Summary ---
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
--- OUTSIDE RECORDS SUMMARY | 2025-02-22 16:15 | XMS_ITS | Patient Health Record ---
Author Organization Deshawn Ibrahim III, MD Address [address] [place] [address] Care Team Providers Care Airframe Design Engineer Name Role Phone Deshawn Ibrahim Primary Care Provider Allergies Allergen (clinical drug ingredient) Drug/Non Drug Allergy documented on EMR Reaction Allergy Type Onset Date Status No Known Drug Allergy Unknown Drug Allergy Active Results Component Value Reference Range Notes XR chest 2V Reviewed date:05/25/2024 01:11:40 PM Interpretation: Performing Lab: Notes/Report: [address] [address] XRay Report Signed Patient: Marquez Mckeon MR#: [id number] 201 : 1945 Acct:[id number] Age/Sex: 79 / M ADM Date: 04/22/24 Loc: HO.LAB Attending Dr: Deshawn Ibrahim MD Ordering Physician: Deshawn Ibrahim MD Date of Service: 04/22/24 Procedure(s): XR chest 2V Accession Number(s): [id number] cc: Deshawn Ibrahim MD EXAMINATION: XR CHEST [...] MD in OV> 04/22/241626 DD/ 17 TD/TT: Formal Wear Rental Clerk: YONNY [address] [address] XRay Report Signed Patient: Hyun Mckeon MR#: [id number] 201 : 1945 Acct:[id number] Age/Sex: 79 / M ADM Date: 04/22/24 Loc: HO.LAB Attending Dr: Deshawn Ibrahim MD Ordering Physician: Deshawn Ibrahim MD Date of Service: 04/22/24 Procedure(s): XR mine st 2V Accession Number(s): [id number] cc: Deshawn Ibrahim MD EXAMINATION: XR CHEST [...] in OV> 04/22/24 1627 DD/ 1418 TD/TT: Formal Wear Rental Clerk: YONNY Complete Blood Count Auto Di ff Reviewed date:08/21/2024 07:25:34 AM Interpretation: Performing Lab:[facility], [address] [place] [address] Notes/Report: White Blood Count 4.6 4.8-10.8 X10*3/uL [...] NRBC Abs Auto 0.000 0.0-0.012 X10*3/uL Comprehensive [place]. Panel Fa st Reviewed date:08/21/2024 07:25:34 AM Interpretation: Performing Lab:[facility], [address] [place] [address] Notes/Report: Sodium 140 135-145 mmol/L Potassium 4.4 3.3-5.1 mmol/L Chloride 104 96-108 mmol/L Carbon Dioxide 28 22-29 mmol/L Anion Gap 12 12-20 Blood Urea Nitrogen 15 9-16 mg/dL Creatinine 0.89 0.5-1.4 mg/dL Estimated Glomerular Filt Rate > 60 NOTE: For -Danish individuals, multiply the result by 1.210. Chronic [...] Panel Reviewed date:08/21/2024 07:25:35 AM Interpretation: Performing Lab:[facility], [address] [place] [address] Notes/Report: Triglycerides 116 <150 mg/dL Desirable Triglyceride: [...] date:10/26/2024 08:53:11 AM Interpretation: Performing Lab: Notes/Report: [address] [address] XRay Report Signed Patient: Marquez Mckeon MR#: [id number] 201 : 1945 Acct:[id number] Age/Sex: 79 / M ADM Date: 09/05/24 Loc: MARVIN Attending Dr: Deshawn Ibrahim MD Ordering Physician: Deshawn Ibrahim MD Date of Service: 09/05/24 Procedure(s): XR cervical spine 4V Accession Number(s): [id number] cc: Deshawn Ibrahim MD EXAMINATION: XR CERVICAL [...] 09/05/24 1134 DD/ 1015 TD/TT: 09/05/24 1035 Formal Wear Rental Clerk: [place] [address] XRay Report Signed Patient: Hyun Mckeon MR#: [id number] 201 : 1945 Acct:[id number] Age/Sex: 79 / M ADM Date: 09/05/24 Loc: HO.XIOMY Attending Dr: Deshawn Ibrahim MD Ordering Physician: Deshawn Ibrahim MD Date of Service: 09/05/24 Procedure(s): XR cervical spine 4V Accession Number(s): [id number] cc: Deshawn Ibrahim MD EXAMINATION: XR CERVICAL [...] 09/05/24 1134 DD/ 1015 TD/TT: 09/05/24 1035 Formal Wear Rental Clerk: US thyroid Reviewed date:01/25/2025 08:58:45 AM Interpretation: Performing Lab: Notes/Report: [address] [address] Ultrasound Report Signed with Addenda Patient: Marquez Mckeon MR#: [id number] 201 : 1945 Acct:[id number] Age/Sex: 79 / M ADM Date: 10/19/24 Loc: HO.US Attending Dr: Deshawn Ibrahim MD Ordering Physician: Deshawn Ibrahim MD Date of Service: 10/19/24 Procedure(s): US thyroid Accession Number(s): [id number] cc: Deshawn Ibrahim MD ADDENDUM ADDENDUM #1 Results Acknowledgement: Verbal results and recommendation given to Tonya Shaffer MA. Report was forwarded to provider for review. Yanet Hopper, 11/21/2024 4:07 PM Electronically signed by: Jessenia Marie MD 11/22/2024 06:40 AM EST RP Addendum Dictated By: Jessenia Marie MD Addendum Signed By: <Electronically signed by Jessenia Marie MD in OV> 11/22/24 0640 Addendum Cosigned By: DD/ TD/TT: 10/19/24 ADDENDUM #1 Results Acknowledgement: Verbal results and recommendation given to Tonya Shaffer MA. Report was forwarded to provider for review. Yanet Hopper, 11/21/2024 4:07 PM Electronically signed by: Jessenia Marie MD 11/22/2024 06:[address] [facility] ORIGINAL REPORT EXAMINATION: US THYROID CLINICAL INFORMATION: [...] than or equal to 1 cm: 1. Yard Conductor nodules are described as follows: 1. Location: [...] 11/22/24 0640 DD/ 1234 TD/TT: 10/19/24 1251 Formal Wear Rental Clerk: [address] [address] Ultrasound Report Signed with Addenda Patient: Hyun Mckeon MR#: [id number] 201 : 1945 Acct:[id number] Age/Sex: 79 / M ADM Date: 10/19/24 Loc: HO.US Attending Dr: Deshawn Ibrahim MD Ordering Physician: Deshawn Ibrahim MD Date of Service: 10/19/24 Procedure(s): US thyroid Accession Number(s): [id number] cc: Deshawn Ibrahim MD ADDENDUM ADDENDUM #1 [...] than or equal to 1 cm: 1. Yard Conductor nodul es are described as follows: 1. [...] by: Jessenia Marie MD 11/21/2024 05:[address] [facility] US/US thyroid IMPRESSION: 1.5 cm RIGHT inferio [...] by: Jessenia Marie MD 11/21/2024 05:[address] [facility] Dictated By: Jessenia Marie MD Signed By: <Electronically signed by Jessenia Marie MD in OV> 11/22/24 0640 DD/ 1234 TD/TT: 10/19/24 1251 Formal Wear Rental Clerk: TSH reflex Free T4 Reviewed date:01/25/2025 08:58:45 AM Interpretation: Performing Lab:[facility], [address] [place] [address] Notes/Report: TSH reflex Free T4 1.83 0.32-4.0 uIU/mL Pathology Reviewed date:02/11/2025 04:51:09 AM Interpretation: Performing Lab:[facility], [address] [place] [address] Notes/Report: --- Name: Marquez Mckeon Age/Sex: 79/M : 1945 Unit#: [id number] Attend Dr: Jeanne Dewey MD Re02/01/25 Status : DEP REF Location: [facility] Disch: --- SPEC : [id number] RECD : 02/01/25 STATUS: NIYAH TORRES NUM: [id number] EMI: 02/01/[address] [facility] [address]: Jeanne Dewey MD ENTERED: 02/02/25 SP TYPE: Cytology OT DR: Deshawn Ibrahim MD ORDERED: Fine Ndl Asp THIS IS A CORRECT ED REPORT 02/02/25 This is a corrected report. Any previous version s are stored internally and are available if necessary. Diagnosis Thyroid, right infer ior nodule, fine needle aspiration biopsy (cytology): -Shubuta System Classification:? Benign (category 2) -Description:? Few [...] is prepared. Copies To: Deshawn Ibrahim MD [address] [place] [address], [address] [place] [address] Jeanne Dewey MD [place] [address] [place] [address] [email or web address] CONTINUED ON NEXT PAGE --- Name: Marquez Mckeon Age/Sex: 79/M : 1945 Unit#: [id number] Attend Dr: Jeanne Dewey MD Re02/01/25 Status : DEP REF Location: [facility] Disch: --- SPEC : [id number] RECD : 02/01/25632 STATUS: NIYAH TORRES NUM: [id number] EMI: 02/01/[address] [facility] [address]: Jeanne Dewey MD ENTERED: 02/02/25 41 SP TYPE: Cytology OTHR DR: Deshawn Ibrahim MD ORDERED: Fine Ndl Asp --- Signed (signature on file) Alia Rhoda 02/09/25 0923 --- END OF REPORT UA ClnCatch+Micro w/rflx Cul t (Not yet reviewed by provider) Interpretation: Performing Lab:[facility], [address] [place] [address] Notes/Report: [id number] 2046 Urine, Clean Catch Color Urine Yellow Appearance Urine Clear PH 8.0 5.0-9.0 Glucose Urine UA Negative Negative mg/dL Urine Blood Small (1+) Negative Specific Eucha - Urine 1.015 1.005-1.025 Urine Protein Negative Neg-Trace mg/dL Urine Ketones Negative Negative mg/dL Nitrite Urine Negative Negative Leukocyte Esterase Urine Negative Negative RBC Urine 11-20 0-2 /HPF WBC Urine 0-5 0-5 /HPF Squamous Epithelial Cell Urine 0-2 0-2 /HPF Bacteria Urine None Seen None Seen Hyaline Casts Urine 0-2 0-2 /LPF CT angio abdomen pelvis (Not yet reviewed by provider) Interpretation: Performing Lab: Notes/Report: [address] [address] [address] Scan Report Signed Patient: Marquez Mckeon MR#: [id number] 201 : 1945 Acct:[id number] Age/Sex: 79 / M ADM Date: 02/20/25 Loc: .ED Attending Dr: Ordering Physician: Bonita Martinez CNP Date of Service: 02/20/25 Procedure(s): CT angio abdomen pelvis Accession Number(s): [id number] cc: Bonita Martinez CNP; Deshawn Ibrahim MD Report Number: [id number]: Total DLP = 474.00 mGy-cm CLINICAL HISTORY: abrupt onset severe sharp ABD pain CT angiography abdomen and pelvis with contrast. 3-D post processing. Comparison: None Findings: Atherosclerosis of the aorta and its branches. No aneurysm, occlusion or dissection. Mild dependent atelectasis. 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 No biliary duct dilatation. Fatty atrophy of the pancreas. Liver and spleen are within normal limits. Nodular thickening of the adrenal glands. No hydronephrosis. Symmetric contrast enhancement of the kidneys. Left renal cyst. Right inguinal hernia containing bowel. No bowel obstruction, pneumatosis or pneumoperitoneum. Mild prostatomegaly. Urinary bladder is within normal limits. Degenerative changes of the spine. IMPRESSION: 1. No acute intraabdominal or pelvic pathology. 2. No acute aortic findings. This document has been electronically signed by: Pop Ferrera MD on 02/21/2025 00:36:26 Dictated By: Pop Ferrera MD Signed By: <Electronically signed by Pop Ferrera MD in OV> 02/21/2536 DD/ TD/TT: 02/21/2535 Formal Wear Rental Clerk: [place] [address] CT Scan Report Signed Patient: Hyun Mckeon MR#: [id number] 201 : 1945 Acct:[id number] Age/Sex: 79 / M ADM Date: 02/20/25 Loc: HO.ED Attending Dr: Ordering Physician: Bonita Martinez CNP Date of Service: 02/20/25 Procedure(s): CT ang io abdomen pelvis Accession Number(s): [id number] cc: Bonita Martinez CNP; Deshawn Ibrahim MD Report Number: [id number]: Total DLP = 474.00 mGy-cm CLINICAL HISTORY: abrupt onset severe sharp ABD pain CT angiography abdom en and pelvis with contrast. 3-D post processing. Comparison: None Findings: Atherosclerosis of t he aorta and its branches. No aneurysm, occlusion or dissection. Mild dependent atelectasis. 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 No biliary duct dilatation. Fatty atrophy of the pancreas. Liver and spleen are within normal limits. Nodular thickening o f the adrenal glands. No hydronephrosis. Symmetric contrast enhancement of the kidneys. Left renal cyst. Right inguinal herni a containing bowel. No bowel obstruction , pneumatosis or pneumoperitoneum. Mild prostatomegaly. Urinary bladder is within normal limits. Degenerative changes of the spine. IMPRESSION: 1. No acute intraabdominal or pelvic pathology. 2. No acute aortic findings. This document has be en electronically signed by: Pop Ferrera MD on 02/21/2025 00:36:26 Dictated By: Pop Ferrera MD Signed By: <Electronically signed by Ppo Ferrera MD in OV> 02/21/2536 DD/ TD/TT: 02/21/2535 Formal Wear Rental Clerk: Reason For Referral Reason hearing loss check hearing aides Diagnosis 1 Sensorineural hearin g loss (SNHL) of both ears (H90.3) Referral Organization Deshawn Ibrahim III, MD Referring Provider First Name Deshawn Referring Provider Last Name Ibrahim Referring Provider Speciality [facility] Referred Provider Speech [facility] [place] Referred Provider Specialty Audiologists General Notes Victorina Gray [facility] 08/31 09:26:45 AM > ref/insurance ref/demo/progress note faxed to speech and hearing at , Victorina Gray [facility] 09/06/2024 11:35:36 AM > [facility] at [phone] was told patient has appt on 09/16/2024 with them Referral Priority Routine Referral Appointment Date 09/16/2024 Reason evaluate and treat biopsy needed on 1 cm thyroid nodule seen on Ultrasound Diagnosis 1 Thyroid nodule (E04. 1) Referral Organization Deshawn Ibrahim III, MD Referring Provider First Name Deshawn Referring Provider Last Name Ibrahim Referring Provider Speciality [facility] Referred Provider [facility] Referred Provider Specialty Endocrinolog y General Notes Victorina Gray [facility] 12/14 04:31:00 PM > ref/demo/progress note/ultrasound faxed to [facility] [phone] press 4 new pt ext, Victorina Gray [facility] 12/22/2024 01:22:21 PM >I called [facility] made pt appt with Dr Groves [...] Problem Status W/U Status Risk Notes Problem 7802739 Former smoker (Z87.891) Active confirmed He is highly motivated not to smoke. He has a plan to prevent relapse in times of stress and illness. Problem Arthritis (4854278) Arthritis (M19.90) Active confirmed He has had the right knee replaced. The left is mildly symptomatic and does not require surgery at this time. Problem 06158785 Other chronic pain (G89.29) Active confirmed Problem Benign prostatic hyperplasia (143685681) BPH (benign prostatic hyperplasia) (N40.0) Active confirmed He has been rising one or 2 times a night to urinate. This depends upon fluid intake. We have discussed lifestyle modifications that may to reduce nocturia. Problem 38935521 Essential hypertension (I10) Active confirmed His blood pressure is currently stable. No change in his regimen was made today. Problem 455149356 Peripheral vascular disease (I73.9) Active confirmed His claudicatio n is minor and stable. No change in his regimen as necessary today. He will resume taking 81 mg of aspirin daily on February 25, 2024 Problem Thyroid nodule (775645840) Thyroid nodule (E04.1) Active confirmed The right lower pole nodule was recently biopsied February 01, 2025. The significance of rare Hurthle cell changes is unclear to me and I will speak with pathology. No overt thyroid cancer was detected. Problem Hyperlipidaemia (83249537) Hyperlipemia (E78.5) Active confirmed Comprehensive blood work with a fasting lipid profile will be ordered periodically. No change in his regimen was made today. Problem 854680349 Malignant neoplasm of colon, unspecified part of colon (C18.9) Active confirmed There is no sig n of recurrent colon cancer on today's examination. Surveillance will continue. There have been no further sessions of cancer in his family. Since his last visit. Problem 625937151 Left inguinal hernia (K40.90) Active confirmed He [...] room for pain at the hernias. Problem 01093246 Neck pain on left side (M54.2) Active confirmed This discomfort is mild and unchanged. He is not troubled by it. I have recommended heat rest and ibuprofen. Problem 767220619 Age-related nuclear cataract of both eyes (H25.13) Active confirmed His cataracts have been removed and he has no intraocular lenses. Problem 25813083 Acute non-recurrent maxillary sinusitis (J01.00) Active confirmed He was given a prescription for amoxicillin clavulanate and a follow-up office visit. He was instructed to call me at once if anything worsens. He is currently able to eat and drink and perform the activities of daily living without impairment. Problem 104024971 Sensorineural hearing loss (SNHL) of both ears (H90.3) Active confirmed The symptom is mild and he does not wish further referral to ear nose and throat. The appearance of his tympanic membranes was normal. Problem 180726239 Bunion, left foot (M21.612) Active confirmed His symptoms are minimal. No change in his regimen or shear type is necessary today. 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 He is following up with the insurance territory manager next week. Vital Signs Heart Rate 75 /min 02/15/2025 Temperature 97.3 degrees Fahrenheit 02/15/2025 Blood pressure diastolic 58 mm Hg 02/15/2025 Height 74 in 02/15/2025 Blood pressure systolic 114 mm Hg 02/15/2025 Weight 192 lbs 02/15/2025 BMI 24.65 kg/m2 02/15/2025 Encounters Encounter Location Date Provider Diagnosis Deshawn Ibrahim III, MD [address] [place] [address] [place] [address] 02/26/2024 Deshawn Solisne Essential hypertensi on I10 ; Former smoker Z87.891 ; Sensorineural hearing loss (SNHL) of both ears H90.3 ; BPH (benign prostatic hyperplasia) N40.0 ; Right retinal detachment H33.21 and shoulder, left, sequela S43.005S Deshawn Ibrahim III, MD [address] [place] [address] [place] [address] 04/04/2024 Deshawn Solisne Essential hypertensi on I10 ; Hyperlipemia E78.5 ; BPH (benign prostatic hyperplasia) N40.0 ; Peripheral vascular disease I73.9 and Pharyngitis, unspecified etiology J02.9 Deshawn Ibrahim III, MD [address] [place] [address] [place] [address] 04/22/2024 Deshawn Solisne Essential hypertensi on I10 ; Hyperlipemia E78.5 ; Cough, unspecified R05.9 ; Former smoker Z87.891 ; Sensorineural hearing loss (SNHL) of both ears H90.3 ; Malignant neoplasm of colon, unspecified part of colon C18.9 ; BPH (benign prostatic hyperplasia) N40.0 ; Bunion, left foot M21.612 and Left inguinal hernia K40.90 Deshawn Ibrahim III, MD [address] [place] [address] [place] [address] 08/22/2024 Deshawn Solisne Essential hypertensi on I10 ; Hyperlipemia E78.5 ; BPH (benign prostatic hyperplasia) N40.0 ; Left inguinal hernia K40.90 ; Former smoker Z87.891 ; Sensorineural hearing loss (SNHL) of both ears H90.3 ; Malignant neoplasm of colon, unspecified part of colon C18.9 and Neck pain on left side M54.2 Deshawn Ibrahim III, MD [address] [place] [address] [place] [address] 10/06/2024 Deshawn Parrrne Essential hypertensi on I10 ; Neck pain [...] left, sequela S43.005S Deshawn Ibrahim III, MD [address] [place] [address] [place] [address] 11/09/2024 Deshawn Ibrahim Essential hypertensi on I10 ; Acute non-recurrent maxillary sinusitis J01.00 ; Hyperlipemia E78.5 ; BPH (benign prostatic hyperplasia) N40.0 ; Left inguinal hernia K40.90 ; Bunion, left foot M21.612 ; Sensorineural hearing loss (SNHL) of both ears H90.3 ; Former smoker Z87.891 and Malignant neoplasm of colon, unspecified part of colon C18.9 Deshawn Ibrahim III, MD [address] [place] [address] [place] [address] 02/15/2025 Deshawn Ibrahim Essential hypertensi on I10 ; Thyroid nodule E04.1 ; Hyperlipemia E78.5 ; BPH (benign prostatic hyperplasia) N40.0 ; Left inguinal hernia K40.90 ; Bunion, left foot M21.612 ; Former smoker Z87.891 ; Sensorineural hearing loss (SNHL) of both ears H90.3 ; Malignant neoplasm of colon, unspecified part of colon C18.9 and Peripheral vascular disease I73.9 Deshawn Ibrahim III, MD [address] [place] [address] [place] [address] 04/04/2024 Deshawn Ibrahim III, MD [address] [place] [address] [place] [address] 04/05/2024 Deshawn Ibrahim III, MD [address] [place] [address] [place] [address] 08/24/2024 Deshawn Ibrahim III, MD [address] [place] [address] [place] [address] 09/02/2024 Deshawn Ibrahim Cervicalgia M54.2 an d Other chronic pain G89.29 Deshawn Ibrahim III, MD [address] [place] [address] [place] [address] 11/14/2024 Deshawn Ibrahim III, MD [address] [place] [address] [place] [address] 11/17/2024 Deshawn Ibrahim III, MD [address] [place] [address] [address] [place], [place] [address] 11/28/2024 Deshawn Ibrahim III, MD [address] [place] [address] [address] [place] [address] 12/26/2024 Deshawn Ibrahim Assessments Encounter Date Diagnosis [...] uncomfortable. He is following up with the insurance territory manager next week. 04/04/2024 Pharyngitis, unspecified etiology (ICD-10 [...] C) 09/16/2021 PROFILE, FASTING (COMPREHENSIVE METABOLI C) 02/15/2025 PROFILE, FASTING (COMPREHENSIVE METABOLI C) 12/15/2022 PROFILE, FASTING (COMPREHENSIVE METABOLI C) 10/02/2023 PROFILE, FASTING (COMPREHENSIVE METABOLI C) 06/12/2021 PROFILE, FASTING (COMPREHENSIVE METABOLI C) 04/22/2024 PROFILE, FASTING (COMPREHENSIVE METABOLI C) 07/15/2022 PROFILE, RANDOM (COMPREHENSIVE METABOLIC ) 02/19/2024 LIPID [...] Ferritin 04/16/2021 Lipid Panel 06/12/2021 Lipid Panel 04/22/2024 Lipid Panel 07/15/2022 Lipid Panel 02/15/2025 ECG 12 lead EKG 02/19/2024 CT angio abdomen pelvis 02/21/2025 UA ClnCatch+Micro w/rflx Cult 02/20/2025 Next Appt Details Provider Name:Deshawn Ibrahim, 05/17/2025 10:30:00 AM, [address] [facility] [address], [place], [address], Provider Name:Deshawn Ibrahim, 10/09/2025 10:00:00 AM, [address] [facility] [address], [place], [address], Insurance Providers Payer Name Payer Address Payer Phone Subscriber Number Group Number Insured Name Patient Relationship to Insured Coverage Start Date Coverage End Date [facility] PPO [address] [address] [place] [address] [id number] Marquez Mckeon Self - patient is the insured MEDICARE NGS [address] [facility] [place] [address] [id number] Marquez Mckeon Self - patient is the insured Medical (General) History Medical History History ICD Code Bunion M21.619 Hyperlipemia E78.5 right inguinal hernia bilateral cataracts osteoarthritis former smoker, 1989 pseudophakia hearing loss hemorrhoid osteoarthritis right knee arthroplasty 2016 colon cancer 1994 microscopic hematuria 2009 negative cyst oscopy hyperlipidemia bilateral cataract, intraocular lenses hypertension benign prostatic hypertrophy bunion left fifth toe Partial right retinal detachment January 012022 occlusion right superficial femoral artery with good collaterals Surgical History Surgery Date(Month/Year) No history bilateral cataract surgery bilateral knee surgery Hospitalization History Reason Date(Month/Year) No history
--- OUTSIDE RECORDS SUMMARY | 2025-02-22 16:15 | XMS_ITS | Clinical Summary ---
Author Organization [employer] [facility] Address [address] [place] [address] [address] [place] [address] Care Team Providers Care Enterprise Manager Name Role Phone Unavailable Primary Care Provider [...] age to complete this topic Insurance [facility] [place] [address] [employer]
--- OUTSIDE RECORDS SUMMARY | 2025-02-22 16:15 | XMS_ITS ---
Author Organization Deshawn Ibrahim III, MD Address [address] [place] [address] [place] [address] Care Team Providers Care Open Hearth Helper Name Role Phone Deshawn Ibrahim Primary Care Provider Reason For Referral Reason evaluate and treat biopsy needed on 1 cm thyroid nodule seen on Ultrasound Diagnosis 1 Thyroid nodule (E04. 1) Referral Organization Deshawn Ibrahim III, MD Referring Provider First Name Deshawn Referring Provider Last Name Patrice Referring Provider Speciality Internal M edicine Referred Provider [facility] Referred Provider Specialty Endocrinolog y General Notes Marina Victorina [facility] 12/14 04:31:00 PM > ref/demo/progress note/ultrasound faxed to [facility] [phone] press 4 new pt ext, Marina Victorina [facility] 12/22/2024 01:22:21 PM >I called [facility] made pt appt with Dr Groves for Thursday01/23/2025 at 9:00am mailed and called pt with this appt information Referral Priority Routine Referral Appointment Date 01/23/2025 REASON FOR VISIT Test results/andres Dr Groves Social History Sex Assigned At : Social History Observation Description Sex Assigned At Male Encounters Encounter Location Date Provider Diagnosis Deshawn Ibrahim III, MD [address] [place] [address] [place] [address] 11/28/2024 Deshawn Ibrahim Plan Of Treatment Referrals Referral Date Details 12/14/2024 12/14/2024, evaluate and treat biopsy needed on 1 cm thyroid nodule seen on Ultrasound, [facility] Next Appt Details Provider Name:Deshawn Parrrne, 05/17/2025 10:30:00 AM, [address] [facility] [address], [place], [address], Provider Name:Deshawn Parrrne, 10/09/2025 10:00:00 AM, [address] [place] [address] [address], [place], [address], Progress Notes * JIMBO Marquez ADOB:[birth year] (79 yo M)Acc No.[id number]:11/28/2024 Patient:?Marquez CHOI A :1945???Age:79 Y???Sex:Male Address:[address] [place] [address] [place], [address] Subjective: * Chief Complaints: * ???Test results/andres Dr Groves * Medical History:? * Surgical History:? * Hospitalization/Major Diagno stic Procedure:? * Medications:? Objective: * Vitals:? * Physical Examination:? Assessment: Plan: * Treatment: * Procedure Codes:? * true * Date:? Generated for Marcy garcia/Kosta/eTrajeevsmitting on:?02/22/2025 04:15 PM EDT Consultation Request Notes Referral Date Referring Provider Referred Provider Not es 12/14/2024 Deshawn Ibrahim [facility], [facility] evaluate and treat biopsy needed on 1 cm thyroid nodule seen on Ultrasound
--- OUTSIDE RECORDS SUMMARY | 2025-02-22 16:15 | XMS_ITS | Encounter Summary ---
Author Organization [facility] Address [address] [facility] 7t [place] [address] Care Team Providers Care All Purpose Clerk Name Role Phone Unavailable Primary Care Provider Unavailabl e Encounter Details Date Type Department Care Team (Latest Contact Info) Description 11/24/2018 Abstract [facility] CONVERSIONS Dental, Provider, DDS Social History [...]
--- OUTSIDE RECORDS SUMMARY | 2025-02-22 16:15 | XMS_ITS ---
Author Organization Deshawn Ibrahim III, MD Address [address] [place] [address] Care Team Providers Care Tumble Tailstock Turret Lathe Operator Name Role Phone Deshawn Ibrahim Primary Care Provider [phone] Allergies Allergen (clinical drug ingredient) Drug/Non Drug [...] Date Provider Diagnosis Deshawn Ibrahim III, MD [address] [place] [address] [place] [address] 02/15/2025 Deshawn Patrice Essential hypertensi on I10 [...] OV Provider Name:Deshawn Ibrahim, 05/17/2025 10:30:00 AM, [address] [place] [address] [address], [place], [address], Provider Name:Deshawn Ibrahim, 10/09/2025 10:00:00 AM, [address] [place] [address] [address], [place], [address], Progress Notes * Marquez CHOI ADOB:[birth year] (79 yo M)Acc No.[id number]:02/15/2025 Progress Notes Patient:?Darci CHOIl A Provider:?Deshawn Ibrahim MD :1945???Age:79 Y???Sex:Male Romie e:02/15/2025 Address:[address] [place] [address] [place] [id number] Subjective: * Chief Complaints: * ???1.5 cm [...] has no children. 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 He lives in [place]. He works for the [employer]. He was born in [place] and is [place]. He is a of the [employer] having served at [employer]. He is a former smoker. * Medications:?TakingAspirin [...] Ibrahim MD Date:?01/31 Generated for Marcy garcia/Kosta/Lioritting on:?02/22/2025 04:14 PM EDT History and Physical Notes * [...]
--- OUTSIDE RECORDS SUMMARY | 2025-02-22 16:15 | XMS_ITS ---
Author Organization Deshawn Ibrahim III, MD Address [address] [place] [address] Care Team Providers Care Principal Embedded Software Engineer Name Role Phone Deshawn Ibrahim Primary Care Provider [phone] REASON FOR VISIT Message Social History Sex Assigned At : Social History Observation Description Sex Assigned At Male Encounters Encounter Location Date Provider Diagnosis Deshawn Ibrahim III, MD [address] [place] [address] [place] [address] 12/26/2024 Deshawn Ibrahim Plan Of Treatment Next Appt Details Provider Name:Deshawn Ibrahim, 05/17/2025 10:30:00 AM, [address] [place] [address] [place], [address], Provider Name:Deshawn Ibrahim, 10/09/2025 10:00:00 AM, [address] [place] [address] [place], [address], Progress Notes * Marquez CHOI ADOB:[birth year] (79 yo M)Acc No.[id number]:12/26/2024 Patient:?JIMBO Marquez Jerzy :1945???Age:79 Y???Sex:Male Address: [place], [address] * true * Date:? Generated for Printi ng/Faxing/eTransmitting on:?02/22/2025 04:15 PM EDT
== END 2025-02-22 14:11 | disposition home or self-care (01) ==
LOC: HO.ENCR 13:37
PROVIDERS: PCP Internal Medicine Medical Oncology; Visit Provider Student in an Organized Health Care Education/Training Program
DX: E04.1 Nontoxic single thyroid nodule (principal)
CPT/HCPCS: 99213

== ENCOUNTER → 2025-02-22 13:36 | Outpatient (BNVA) | payer OTHER, SELFPAY | PROVIDERS: PCP Internal Medicine Medical Oncology; Visit Provider Student in an Organized Health Care Education/Training Program ==

== ENCOUNTER 2025-10-02 09:44 | Outpatient (REF) | payer OTHER, SELFPAY ==
[2025-10-02 10:12] LABS: MANUAL DIFF FLAG NO
[2025-10-02 10:38] LABS: Hematocrit 38.1 % (42.0-52.0); Hemoglobin 12.5 g/dl (14.0-18.0); Imm Gran Abs Auto 0.02 X10*3/uL (0.00-0.03); Imm Gran Pct Auto 0.4 % (0.0-0.4); Lymphocytes Absolute Auto 1.3 X10*3/uL (1.2-4.9); Mean Corpuscular HGB Conc 32.8 g/dl (31.0-36.0); Mean Corpuscular Hemoglobin 31.5 pg (27.0-33.0); Mean Corpuscular Volume 96.0 fL (80.0-98.0); NRBC Abs Auto 0.000 X10*3/uL (0.0-0.012); NRBC Pct Auto 0.0 /100WBC (0.0-0.2); Platelet Count 166 X10*3/uL (160-400); Red Blood Count 3.97 X10*6/uL (4.60-5.80); White Blood Count 4.9 X10*3/uL (4.8-10.8)
--- OUTSIDE RECORDS SUMMARY | 2025-10-02 11:43 | XMS_ITS | Encounter Summary ---
Author Organization [employer] Address [address] [facility] [address] [facility] 7t [place] [address] Care Team Providers Care Media Arts Professor Name Role Phone Unavailable Primary Care Provider Unavailabl e Encounter Details Date Type Department Care Team (Late st Contact Info) Description 10/13/2022 Abstract [facility] [address] [place] [address] Dental, Provider, DDS Social History Tobacco Use [...]
--- OUTSIDE RECORDS SUMMARY | 2025-10-02 11:43 | XMS_ITS | Encounter Summary ---
Author Organization [employer] Address [address] [facility] [address] [place] [address] Care Team Providers Care Tack Driller Name Role Phone Unavailable Primary Care Provider Unavailabl e Encounter Details Date Type Department Care Team (Latest Contact Info) Description 11/24/2018 Abstract [facility] CONVERSIONS Dental, Provider, DDS Social History Tobacco [...]
--- OUTSIDE RECORDS SUMMARY | 2025-10-02 11:43 | XMS_ITS | Clinical Summary ---
Author Organization [employer] Address [address] [place] [address] [address] [place] [address] Care Team Providers Care Lead Qa Analyst Name Role Phone Unavailable Primary Care Provider [...] Vaccine: 50+ Years (2 of 2 - PCV20 or PCV21) 07/30/2017 07/30/2016 DTaP/Tdap/Td Vaccines (1 - Tdap) 09/20/2017 09/19/2017 COVID-19 Vaccine (8 - 2025-26 season) 2025 08/06/2023, 02/20/2023, 07/16/2022, Additional history exists Influenza Vaccine (#1) 2025 , 07/04/2022, 07/06/2020, Additional history exists Zoster Vaccines Completed 06/20/2021, 04/19/2021 RSV Patients and Patients Aged 60 years or older Completed 05/24/2024 HIB Vaccines Aged Out No longer eligi [...] patient's age to complete this topic Meningococcal B Vaccine Aged Out No l onger eligible based on patient's age to complete this topic Meningococcal Vaccine Aged Out No todd simi eligible based on patient's age to complete this topic RSV under 20 months Aged Out No longe r eligible based on patient's age to complete this topic Rotavirus Vaccines Aged Out No longer eligible based on patient's age to complete this topic Insurance [employer]
[2025-10-02 11:44] LABS: Alanine Aminotransferase 20 U/L (0-40); Albumin Level 4.3 g/dL (3.5-5.0); Alkaline Phosphatase 89 U/L (39-117); Anion Gap 9 (12-20); Aspartate Amino Transferase 30 U/L (5-37); Blood Urea Nitrogen 17 mg/dL (9-16); Calcium 9.1 mg/dL (8.4-10.2); Carbon Dioxide 29 mmol/L (22-29); Chloride 107 mmol/L (96-108); Cholesterol 170 mg/dL (<200); Estimated Glomerular Filt Rate > 60; HDL Cholesterol 43 mg/dL (>40); Potassium 4.5 mmol/L (3.3-5.1); Sodium 140 mmol/L (135-145); Total Protein 7.3 g/dL (6.5-8.0); Triglycerides 142 mg/dL (<150)
== END 2025-10-02 09:45 | disposition home or self-care (01) ==
LOC: HO.LAB 09:44
PROVIDERS: PCP Internal Medicine Medical Oncology; Visit Provider Internal Medicine Medical Oncology
DX: I10 Essential (primary) hypertension (principal); E78.5 Hyperlipidemia, unspecified; E66.3 Overweight
CPT/HCPCS: 36415; 80053; 80061; 85025